=== PATIENT | female | born 1930 | race Caucasian/White ===

== ENCOUNTER 2016-11-13 22:36 | Emergency (ER) | payer MEDICARE ==
[~2016-11-13] VITALS: Ht 172.7 cm; Wt 103.0 kg
[~2016-11-13 22:36] MED LIST: AMLO5TAB22 PO; ASPI325T PO; CALC0.25 PO; CIPR1TAB50 PO; DUONI NEB; FERR324T4 PO; FURO1TAB93 PO; LOPR50TA12 PO; NOVORP2 SQ; SYNT25TA PO
[2016-11-13 22:44] VITALS: BP 221/92; PULSE 78; RESP 20; O2SAT 100
[2016-11-13 22:52] VITALS: BP 155/67; PULSE 70; RESP 18; O2SAT 98
[2016-11-13 23:04] VITALS: BP 206/84; PULSE 69; RESP 18; TEMP 97.6; O2SAT 98
[2016-11-13] MEDS ORDERED: AMLO5TAB2 PO (23:24)
[2016-11-13] MEDS ORDERED: ASPI325T PO (23:24)
[2016-11-13] MEDS ORDERED: CALC0.25 PO (23:24)
[2016-11-13 23:25] LABS: AUTOMATED NEUTROPHIL # 4.8 TH/MM3 (1.8-7.7); BASOPHIL # 0.1 TH/MM3 (0-0.2); BASOPHIL % 1.2 % (0.0-2.0); EOSINOPHIL % 12.2 % (0.0-4.0); HEMATOCRIT 29.4 % (35.0-46.0); HEMO FLAGS DIFF FINAL; LYMPH % 18.5 % (9.0-44.0); LYMPHOCYTE # 1.5 TH/MM3 (1.0-4.8); MEAN CORPUSCULAR HEMOGLOBIN 30.2 PG (27.0-34.0); MEAN CORPUSCULAR HGB CONC 33.5 % (32.0-36.0); MONO % 9.8 % (0.0-8.0); NEUT % 58.3 % (16.0-70.0); PLATELET COUNT 154 TH/MM3 (150-450); RED BLOOD COUNT 3.26 MIL/MM3 (4.00-5.30); WHITE BLOOD COUNT 8.2 TH/MM3 (4.0-11.0)
[2016-11-13] MEDS ORDERED: FERR325C PO (23:25)
[2016-11-13] MEDS ORDERED: FURO1TAB60 PO (23:25)
[2016-11-13] MEDS ORDERED: NOVORP2 SQ (23:25)
[2016-11-13] MEDS ORDERED: SYNT25TA PO (23:25)
--- NOTE | 2016-11-13 23:26 | PD ---
HPI Chief Complaint: Hypertension Time Seen by Provider: 22:57 Travel History International Travel<30 days: No Contact w/Intl Traveler<30days: No Traveled to known affect area: No History of Present Illness HPI This patient presents to the emergency room because she actually gave herself too much insulin. At 10:15 she checked her blood sugar and was 273. She uses a sliding scale with subcutaneous regular insulin. She made a mistake and accidentally gave herself 20 units of subcutaneous regular at 10:15. At this time she feels fine. Paramedics were called. Accu-Chek was 150 when they arrived. It is currently 84. She is asymptomatic. No alleviating factors. Duration 1 hour. She has history of difficult to control blood pressure, currently 183 systolic she has failing kidneys and is due to start dialysis soon. She has a AV fistula in her right arm. PFSH Past Medical History Anemia: Yes Arthritis: Yes Atrial Fibrillation: Yes Cancer: No Cardiovascular Problems: Yes (chf) Congestive Heart Failure: Yes COPD: Yes Diabetes: Yes Patient Takes Glucophage: No Diminished Hearing: Yes (SNOQUALMIE) Endocrine: Yes Genitourinary: No Hepatitis: No Hiatal Hernia: No Hypertension: Yes Immune Disorder: No Medical other: Yes (ANEMIA,ARTHRITIS,HYPERLIPIDEMIA,) Musculoskeletal: Yes (mild arthritis in the hands and fingers) Neurologic: No Psychiatric: No Reproductive: No Respiratory: No Immunizations Current: No Thyroid Disease: Yes Tetanus Vaccination: Unknown Influenza Vaccination: No : 12 Para: 11 Miscarriage: 1 Past Surgical History Abdominal Surgery: Yes (partial sigmoid removal 2005) AICD: No Arteriovenous Shunt: Yes (RIGHT ARM) Body Medical Devices: PACEMAKER Cardiac Surgery: Yes (pacemaker) Ear Surgery: No Endocrine Surgery: No Eye Surgery: Yes (BILAT eye cataract removal) Genitourinary Surgery: No Gynecologic Surgery: Yes (hysterectomy) Hysterectomy: Yes Joint Replacement: No Oral Surgery: Yes ( ) Pacemaker: Yes Thoracic Surgery: No Tonsillectomy: Yes Other Surgery: Yes ( ) Social History Alcohol Use: No Tobacco Use: No Substance Use: No Allergies-Medications (Allergen,Severity, Reaction): Coded Allergies: Grass (Verified Allergy, Severe, CONGESTION, 11/13/16) Animal Dander (Verified Allergy, Intermediate, NASAL, 11/13/16) NASAL CONGESTION Grapefruit (Unverified Allergy, Unknown, due to drug interaction, 11/13/16) Glucophage (Verified Adverse Reaction, Severe, Diarrhea, 11/13/16) Darvocet-N 100 (Verified Adverse Reaction, Mild, N/V, 11/13/16) Lortab (Verified Adverse Reaction, Mild, N/V, 11/13/16) *MDRO Multi-Drug Resistant Organism (Verified Adverse Reaction, Unknown, ) 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 Uncoded Allergies: ALL NARCOTICS (Adverse Reaction, Severe, Nausea/Vomiting, 08/24/06) Reported Meds & Prescriptions Reported Meds & Active Scripts Active Reported Synthroid (Levothyroxine Sodium) 25 Mcg Tab 25 Mcg PO DAILY Novolin R Inj (Insulin Human Regular) 1,000 Unit/10 Ml Vial 0 SQ DIRECTED Sliding Scale As Directed. Lasix (Furosemide) 40 Mg Tab 40 Mg PO DAILY PRN Iron (Ferrous Sulfate) 325 Mg Capsule.er 325 Mg PO BID Calcitriol 0.25 Mcg Cap 0.25 Mcg PO DAILY Aspirin 325 Mg Tab 325 Mg PO DAILY Amlodipine (Amlodipine Besylate) 5 Mg Tab 5 Mg PO DAILY Review of Systems General / Constitutional: No: Fever Eyes: No: Visual changes HENT: No: Headaches Cardiovascular: No: Chest Pain or Discomfort Respiratory: No: Shortness of Breath Gastrointestinal: No: Abdominal Pain Genitourinary: No: Dysuria Musculoskeletal: No: Pain Skin: No Rash Neurologic: No: Weakness Psychiatric: No: Depression Endocrine: No: Polydipsia Hematologic/Lymphatic: No: Easy Bruising Physical Exam Narrative GENERAL: Well-nourished, well-developed patient in no apparent distress. SKIN: Focused skin assessment reveals no rash and nodules. Skin is Warm and dry. HEAD: Atraumatic. Normocephalic. EYES: Pupils equal and round. No scleral icterus. No injection or drainage. ENT: No nasal bleeding or discharge. Mucous membranes pink and moist. NECK: Trachea midline. No JVD. CARDIOVASCULAR: Regular rate and rhythm. No murmur appreciated. RESPIRATORY: No accessory muscle use. Clear to auscultation. Breath sounds equal bilaterally. GASTROINTESTINAL: Abdomen soft, non-tender, nondistended. Hepatic and splenic margins not palpable. MUSCULOSKELETAL: No obvious deformities. No clubbing. No cyanosis. No edema. Right arm AV fistula NEUROLOGICAL: Awake and alert. No obvious cranial nerve deficits. Motor grossly within normal limits. Normal speech. PSYCHIATRIC: Appropriate mood and affect; insight and judgment normal. Data Data Last Documented VS Vital Signs Date Time Temp Pulse Resp B/P Pulse Ox O2 Delivery O2 Flow Rate FiO2 11/14/16 04:30 74 16 165/73 98 Room Air 11/13/16 23:04 97.6 Orders Iv Access Insert/Monitor (11/13/16 23:08) Complete Blood Count With Diff (11/13/16 23:08) Basic Metabolic Panel (Bmp) (11/13/16 23:08) Clonidine (Catapres) (11/13/16 23:30) Dextrose 50% In Lupe (Vial) Inj (D50w (Vi (11/14/16 00:15) Dext 5%-Nacl 0.45% 1000 Ml Inj (D5w-1/2 (11/14/16 01:30) Dextrose 50% In Lupe (Vial) Inj (D50w (Vi (11/14/16 01:30) Dextrose 50% In Lupe (Vial) Inj (D50w (Vi (11/14/16 02:30) Labs Laboratory Tests Test 11/13/16 23:10 White Blood Count 8.2 TH/MM3 Red Blood Count 3.26 MIL/MM3 Hemoglobin 9.8 GM/DL Hematocrit 29.4 % Mean Corpuscular Volume 90.0 FL Mean Corpuscular Hemoglobin 30.2 PG Mean Corpuscular Hemoglobin 33.5 % Concent Red Cell Distribution Width 14.0 % Platelet Count 154 TH/MM3 Mean Platelet Volume 8.3 FL Neutrophils (%) (Auto) 58.3 % Lymphocytes (%) (Auto) 18.5 % Monocytes (%) (Auto) 9.8 % Eosinophils (%) (Auto) 12.2 % Basophils (%) (Auto) 1.2 % Neutrophils # (Auto) 4.8 TH/MM3 Lymphocytes # (Auto) 1.5 TH/MM3 Monocytes # (Auto) 0.8 TH/MM3 Eosinophils # (Auto) 1.0 TH/MM3 Basophils # (Auto) 0.1 TH/MM3 CBC Comment DIFF FINAL Differential Comment Sodium Level 141 MEQ/L Potassium Level 5.0 MEQ/L Chloride Level 111 MEQ/L Carbon Dioxide Level 21.1 MEQ/L Anion Gap 9 MEQ/L Blood Urea Nitrogen 62 MG/DL Creatinine 3.27 MG/DL Estimat Glomerular Filtration 13 ML/MIN Rate Random Glucose 72 MG/DL Calcium Level 9.0 MG/DL MDM Medical Decision Making Medical Screen Exam Complete: Yes Emergency Medical Condition: Yes Medical Record Reviewed: Yes Differential Diagnosis Hypoglycemic episode, insulin overdose, medication side effect Narrative Course I have reviewed the patient's electronic medical record. Patient was here August 2015 with hypertensive urgency I did give her a low-dose clonidine IV placed CBC is normal Metabolic profile is normal I gave her juice and crackers We will reassess her sugar frequently and observe her for a while Blood sugar dropped down into the 60s so I gave her half amp of D50 and I continued to observe On recheck blood sugar again in the 60s I gave her another half amp of D50 and started D5 normal saline drip at 150 an hour Patient sugar remain low so I continued her on the drip and observed her I really didn't expect this to last as long as it did given her report of subcutaneous regular insulin and not long-acting I didn't feel she would really require hospitalization At 5:45 I turned off her D5 normal saline drip. 30 minutes later blood sugar is 102 and she is asymptomatic. She will check and record it frequently today and avoid diabetic medications and have small frequent snacks Diagnosis Primary Impression: Hypoglycemia due to insulin Additional Impression: Accidental overdose Qualified Code: T50.901A - Accidental overdose, initial encounter Additional Instructions: Avoid diabetic medicines today Check sugar every 2 hours Have small frequent meals and snacks The patient was advised to follow up with their physician and return if they worsen. Disposition: 01 DISCHARGE HOME Condition: Stable Phillip Mcgowan MD Nov 13, 2016 23:26
[2016-11-13] MEDS ORDERED: cloNIDine HCL 0.1 MG TAB PO ONE (23:30)
[2016-11-13 23:41] LABS: BICARBONATE 21.1 MEQ/L (21.0-32.0)
[2016-11-14] VITALS: BP 168/70; PULSE 72; RESP 18; O2SAT 99
[2016-11-14] MEDS ORDERED: DEXTROSE 50% IN WATER 50 ML VIAL(D50) IV PUSH ONE ×3 (00:15→02:30)
[2016-11-14 01:15] VITALS: BP 121/57; PULSE 68; RESP 16; O2SAT 97
[2016-11-14] MEDS ORDERED: DEXT 5%-NACL 0.45% 1000 ML INJ 1,000 ML IV SCH (01:30)
[2016-11-14 02:30] VITALS: BP 126/56; PULSE 72; RESP 16; O2SAT 96
[2016-11-14 04:30] VITALS: BP 165/73; PULSE 74; RESP 16; O2SAT 98
[2016-11-14 07:40] VITALS: BP 147/78
== END 2016-11-14 07:41 | disposition home or self-care (01) ==
LOC: NEPC 22:36
DX: E16.0 Drug-induced hypoglycemia without coma (principal); T38.3X1A Poisoning by insulin and oral hypoglycemic [antidiabetic] drugs, accidental (unintentional), initial encounter; E11.649 Type 2 diabetes mellitus with hypoglycemia without coma; I12.9 Hypertensive chronic kidney disease with stage 1 through stage 4 chronic kidney disease, or unspecified chronic kidney disease; N18.9 Chronic kidney disease, unspecified; I48.91 Unspecified atrial fibrillation; D64.9 Anemia, unspecified; I50.9 Heart failure, unspecified; J44.9 Chronic obstructive pulmonary disease, unspecified; E78.5 Hyperlipidemia, unspecified; E07.9 Disorder of thyroid, unspecified
CPT/HCPCS: 80048; 85025; 96365; 96375; 96376

== ENCOUNTER 2017-02-23 16:15 | Emergency (ER) | payer MEDICARE ==
[~2017-02-23 16:15] MED LIST changes: +AMLO5TAB2 PO; -AMLO5TAB22 PO; -CIPR1TAB50 PO; -DUONI NEB; -FERR324T4 PO; +FERR325C PO; +FURO1TAB60 PO; -FURO1TAB93 PO; -LOPR50TA12 PO
[2017-02-23 16:18] VITALS: BP 139/87; PULSE 81; RESP 14; TEMP 97.9; O2SAT 100
--- NOTE | 2017-02-23 16:40 | PD ---
Physical Exam Time Seen by Provider: 16:38 Narrative Pt sent to ED from [place] for evaluation of high potassium. Pt denies any symptoms, says she feels good!. Appears well, some mild shortness of breath that is chronic. Hx COPD, pacemaker placement, diabetes, CHF Data Data Last Documented VS Vital Signs Date Time Temp Pulse Resp B/P (MAP) Pulse Ox O2 Delivery O2 Flow Rate FiO2 02/23/17 23:40 02/23/17 21:11 83 18 98 Room Air 02/23/17 16:18 97.9 Orders Orders Basic Metabolic Panel (Bmp) (02/23/17 16:40) Electrocardiogram (02/23/17 17:06) Sodium Polysty Sulfate Liq (Kayexalate L (02/23/17 19:00) Urinalysis - C+S If Indicated (02/23/17 19:04) Urine Culture (02/23/17 20:40) Ceftriaxone Inj (Rocephin Inj) (02/23/17 22:45) Ceftriaxone Inj (Rocephin Inj) (02/23/17 23:00) Lidocaine Pf 1% Inj (Xylocaine-Mpf 1% In (02/23/17 23:00) Labs Laboratory Tests Test 02/23/17 16:57 02/23/17 20:40 Blood Urea Nitrogen 50 MG/DL Creatinine 3.09 MG/DL Random Glucose 93 MG/DL Calcium Level 9.2 MG/DL Sodium Level 139 MEQ/L Potassium Level 5.9 MEQ/L Chloride Level 110 MEQ/L Carbon Dioxide Level 21.3 MEQ/L Anion Gap 8 MEQ/L Estimat Glomerular Filtration Rate 14 ML/MIN Urine Color LIGHT-YELLOW Urine Turbidity CLEAR Urine pH 6.5 Urine Specific [place] 1.007 Urine Protein TRACE mg/dL Urine Glucose (UA) NEG mg/dL Urine Ketones NEG mg/dL Urine Occult Blood NEG Urine Nitrite NEG Urine Bilirubin NEG Urine Urobilinogen LESS THAN 2.0 MG/DL Urine Leukocyte Esterase MOD Urine RBC 2 /hpf Urine WBC 10 /hpf Urine Squamous Epithelial Cells 1 /hpf Urine Amorphous Sediment RARE Urine Bacteria MANY /hpf Microscopic Urinalysis Comment CULTURE INDICATED MDM Medical Record Reviewed: Yes Supervised Visit with [facility]: No Scripts Cephalexin (Keflex) 500 Mg Capsule 500 MG PO TID for Infection for 7 Days, CAP 0 Refills Prov: Criss Josue MD 02/23/17 Sodium Polystyrene Sulfonate Liq (Kayexalate Liq) 1 Pow Pow 15 GM PO BID for Excess Potassium, #1 BOTTLE 0 Refills Prov: Criss Josue MD 02/23/17 Condition: Stable Brigida Segovia Feb 23, 2017 16:40
[2017-02-23 17:41] LABS: BICARBONATE 21.3 MEQ/L (21.0-32.0); POTASSIUM 5.9 MEQ/L (3.5-5.1)
[2017-02-23] MEDS ORDERED: SODIUM POLYSTYRENE SULFONATE SUSP 15 GM/60 ML CUP PO ONE (19:00)
[2017-02-23] MEDS ORDERED: CIPR250T52 PO (19:13)
--- NOTE | 2017-02-23 19:18 | PD ---
HPI . Hyperkalemia Chief Complaint: Abnormal Results Time Seen by Provider: 18:53 Travel History International Travel<30 days: No Contact w/Intl Traveler<30days: No Traveled to known affect area: No History of Present Illness HPI Patient presents with a chief complaint of hyperkalemia. She has no complaints. Specifically, she denies any muscular weakness. This patient reports a history of hyperkalemia. She has chronic renal failure. She reports a baseline GFR of 14. She states that she had been treated with Kayexalate for her hyperkalemia until about a month ago. She states she was diagnosed with a urinary tract infection and that the Kayexalate had the stopped because it was contraindicated with the antibiotic. She reports that she is still on the antibiotic. She saw her primary care provider this past and had blood work done. She was called today and told to come to the emergency department because her potassium was high. PFSH Past Medical History Anemia: Yes Arthritis: Yes Atrial Fibrillation: Yes Blood Disorders: No Cancer: No Cardiovascular Problems: Yes (chf) Congestive Heart Failure: Yes COPD: Yes Diabetes: Yes Patient Takes Glucophage: No Diminished Hearing: Yes (MODOC) Endocrine: Yes Genitourinary: No Hepatitis: No Hiatal Hernia: No Hypertension: Yes Immune Disorder: No Medical other: Yes (ANEMIA,ARTHRITIS,HYPERLIPIDEMIA,) Musculoskeletal: Yes (mild arthritis in the hands and fingers) Neurologic: No Psychiatric: No Reproductive: No Respiratory: No Immunizations Current: Yes Thyroid Disease: Yes Tetanus Vaccination: < 5 Years Influenza Vaccination: No : 12 Para: 11 Miscarriage: 1 Past Surgical History Abdominal Surgery: Yes (partial sigmoid removal 2005) AICD: No Arteriovenous Shunt: Yes (RIGHT ARM) Body Medical Devices: PACEMAKER Cardiac Surgery: Yes (pacemaker) Ear Surgery: No Endocrine Surgery: No Eye Surgery: Yes (BILAT eye cataract removal) Genitourinary Surgery: No Gynecologic Surgery: Yes (hysterectomy) Hysterectomy: Yes Joint Replacement: No Neurologic Surgery: No Oral Surgery: Yes ( ) Pacemaker: Yes Thoracic Surgery: No Tonsillectomy: Yes Other Surgery: Yes ( ) Social History Alcohol Use: No Tobacco Use: No Substance Use: No Allergies-Medications (Allergen,Severity, Reaction): Coded Allergies: grass pollen (Unverified Allergy, Severe, CONGESTION, 02/23/17) animal dander (Unverified Allergy, Intermediate, NASAL, 02/23/17) NASAL CONGESTION grapefruit (Unverified Allergy, Unknown, due to drug interaction, 02/23/17) metformin (Unverified Adverse Reaction, Severe, Diarrhea, 02/23/17) acetaminophen (Unverified Adverse Reaction, Mild, N/V, 02/23/17) hydrocodone (Unverified Adverse Reaction, Mild, N/V, 02/23/17) propoxyphene (Unverified Adverse Reaction, Mild, N/V, 02/23/17) *MDRO Multi-Drug Resistant Organism (Verified Adverse Reaction, Unknown, 02/23/17) 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 Uncoded Allergies: ALL NARCOTICS (Adverse Reaction, Severe, Nausea/Vomiting, 08/24/06) Reported Meds & Prescriptions Reported Meds & Active Scripts Active Kayexalate Liq (Sodium Polystyrene Sulfonate) 1 Pow Pow 15 Gm PO BID Reported Cipro (Ciprofloxacin HCl) 250 Mg Tab 250 Mg PO DAILY Review of Systems Except as stated in HPI: all other systems reviewed are Neg Physical Exam Narrative GENERAL: Patient is awake and alert and in no distress. SKIN: Warm and dry with no rash or lesions. HEAD: Normocephalic/atraumatic. EYES: Pupils are equal. Extraocular movements are intact. ENT: Mucous membranes are pink and moist. NECK: Neck is supple with full range of motion. CARDIOVASCULAR: Regular rate and rhythm. RESPIRATORY: Nonlabored. MUSCULOSKELETAL: Nontender. Atraumatic. NEUROLOGICAL: Nonfocal. PSYCHIATRIC: Appropriate mood and affect. Data Data Last Documented VS Vital Signs Date Time Temp Pulse Resp B/P (MAP) Pulse Ox O2 Delivery O2 Flow Rate FiO2 02/23/17 21:11 83 18 179/86 (117) 98 Room Air 02/23/17 16:18 97.9 Orders Orders Basic Metabolic Panel (Bmp) (02/23/17 16:40) Electrocardiogram (02/23/17 17:06) Sodium Polysty Sulfate Liq (Kayexalate L (02/23/17 19:00) Urinalysis - C+S If Indicated (02/23/17 19:04) Urine Culture (02/23/17 20:40) Ceftriaxone Inj (Rocephin Inj) (02/23/17 22:45) Ceftriaxone Inj (Rocephin Inj) (02/23/17 23:00) Lidocaine Pf 1% Inj (Xylocaine-Mpf 1% In (02/23/17 23:00) Labs Laboratory Tests Test 02/23/17 16:57 02/23/17 20:40 Blood Urea Nitrogen 50 MG/DL Creatinine 3.09 MG/DL Random Glucose 93 MG/DL Calcium Level 9.2 MG/DL Sodium Level 139 MEQ/L Potassium Level 5.9 MEQ/L Chloride Level 110 MEQ/L Carbon Dioxide Level 21.3 MEQ/L Anion Gap 8 MEQ/L Estimat Glomerular Filtration Rate 14 ML/MIN Urine Color LIGHT-YELLOW Urine Turbidity CLEAR Urine pH 6.5 Urine Specific [place] 1.007 Urine Protein TRACE mg/dL Urine Glucose (UA) NEG mg/dL Urine Ketones NEG mg/dL Urine Occult Blood NEG Urine Nitrite NEG Urine Bilirubin NEG Urine Urobilinogen LESS THAN 2.0 MG/DL Urine Leukocyte Esterase MOD Urine RBC 2 /hpf Urine WBC 10 /hpf Urine Squamous Epithelial Cells 1 /hpf Urine Amorphous Sediment RARE Urine Bacteria MANY /hpf Microscopic Urinalysis Comment CULTURE INDICATED MDM Medical Decision Making Medical Screen Exam Complete: Yes Emergency Medical Condition: Yes Medical Record Reviewed: Yes (her most recent potassium was 5.0 on 11/13. Her GFR at that time was 13.) Interpretation(s) EKG shows a paced rhythm. No peaked T waves. Differential Diagnosis Differential diagnosis includes but is not limited to hemolysis, lab error, hyperkalemia. Narrative Course Patient presents for treatment of hyperkalemia. UpToDate was queried. Her hyperkalemia needs to be treated but her potassium does not need to be acutely lowered. She will be given Kayexalate. The fact that she has a cardiac pacemaker is reassuring. The patient does state that she is still on an antibiotic for UTI. She's been on the antibiotic for a month. I will check a urine. UA>>mod LE and many bact. She has been treated here with Rocephin, 1 g IM. She will be discharged on Keflex. Diagnosis Primary Impression: Hyperkalemia Additional Impressions: CKD (chronic kidney disease) Qualified Codes: N18.4 - Chronic kidney disease, stage 4 (severe) Urinary tract infection Qualified Codes: N30.00 - Acute cystitis without hematuria Patient Instructions: General Instructions, Hyperkalemia (DC) Additional Instructions: See your doctor later this week to have your potassium rechecked. Med/Other Pt SpecificInfo: Prescription(s) given, Med Stopped Scripts Cephalexin (Keflex) 500 Mg Capsule 500 MG PO TID for Infection for 7 Days, CAP 0 Refills Prov: Criss Josue MD 02/23/17 Sodium Polystyrene Sulfonate Liq (Kayexalate Liq) 1 Pow Pow 15 GM PO BID for Excess Potassium, #1 BOTTLE 0 Refills Prov: Criss Josue MD 02/23/17 Disposition: 01 DISCHARGE HOME Condition: Stable Criss Josue MD Feb 23, 2017 19:18
[2017-02-23] MEDS ORDERED: KAYEPOW PO ×2 (19:41→19:49)
[2017-02-23 21:11] VITALS: BP 179/86; PULSE 83; RESP 18; O2SAT 98
[2017-02-23 22:28] LABS: BACTERIA, URINE MANY /hpf; BLOOD, URINE NEG (NEG); COMMENT (UR) CULTURE INDICATED; CULTURE IF INDICATED CULTURE INDICATED; GLUCOSE,URINE NEG (NEG); KETONE, URINE NEG (NEG); NITRITE,URINE NEG (NEG); PH, URINE 6.5 (5.0-8.5); SQUAMOUS EPITHELIAL CELL URINE 1 /hpf (0-5); URINE COLOR LIGHT-YELLOW (YELLW/STRAW)
[2017-02-23] MEDS ORDERED: cefTRIAXone INJ 1,000 MG in SODIUM CHLORIDE 0.9% INJ 100 ML IV ONE (22:45)
[2017-02-23] MEDS ORDERED: LIDOCAINE HCL 1% PF 30 ML VIAL XX ONE (23:00)
[2017-02-23] MEDS ORDERED: CEPH-460 PO (23:02)
--- NOTE | 2017-02-24 08:20 | EKG ---
Date Performed: 02/23/2017 Time Performed: 17:06:55 PTAGE: 87 years EKG: ELECTRONIC VENTRICULAR PACEMAKER ABNORMAL RHYTHM ECG PREVIOUS TRACING : 08/27/2015 08.47 Compared to prior EKG, patient is now paced. DOCTOR: Harper Jules Interpretating Date/Time 02/24/2017 08:18:21
== END 2017-02-23 23:47 | disposition home or self-care (01) ==
LOC: NEPE 16:15
DX: E87.5 Hyperkalemia (principal); N39.0 Urinary tract infection, site not specified; B96.20 Unspecified Escherichia coli [E. coli] as the cause of diseases classified elsewhere; R94.31 Abnormal electrocardiogram [ECG] [EKG]; E11.22 Type 2 diabetes mellitus with diabetic chronic kidney disease; I12.9 Hypertensive chronic kidney disease with stage 1 through stage 4 chronic kidney disease, or unspecified chronic kidney disease; N18.4 Chronic kidney disease, stage 4 (severe); D64.9 Anemia, unspecified; E78.5 Hyperlipidemia, unspecified
CPT/HCPCS: 80048; 81001; 87077; 87086; 87186; 93005; 96372; 99284; J0696

== ENCOUNTER 2017-05-10 18:53 | Inpatient (IN) | payer MEDICARE ==
[~2017-05-10] VITALS: Ht 167.6 cm; Wt 106.0 kg
[2017-05-10 17:57] VITALS: O2SAT 100
[~2017-05-10 18:53] MED LIST changes: -AMLO5TAB2 PO; -ASPI325T PO; -CALC0.25 PO; +CEPH-460 PO; -FERR325C PO; -FURO1TAB60 PO; +KAYEPOW PO; -NOVORP2 SQ; -SYNT25TA PO
[2017-05-10 19:01] VITALS: BP 229/112; PULSE 110; RESP 24; TEMP 98.2; O2SAT 100
[2017-05-10 19:05] VITALS: O2SAT 100
--- NOTE | 2017-05-10 19:11 | PD ---
HPI Chief Complaint: Respiratory Distress Time Seen by Provider: 19:02 Travel History International Travel<30 days: No Contact w/Intl Traveler<30days: No Traveled to known affect area: No History of Present Illness HPI 87 year-old woman, presents to the emergency department and respiratory distress , speaks in 1-2 word sentences, and able to provide much history. EMS reports that she's been more short of breath for the past week or so. They gave nebulizer treatments as well as IV Solu-Medrol. Patient remains symptomatic. Review of records shows patient with chronic kidney disease, COPD, CHF. Medications include Lasix. History Past Medical History Narrative Medical Obtained from old records: A. fib Pacemaker for CHF COPD CHF Hypertension hypokalemia Hypothyroidism insulin-dependent diabetes Chronic kidney disease stage IV History of right DVT : 12 Para: 11 Social History Alcohol Use: No Tobacco Use: No Allergies-Medications (Allergen,Severity, Reaction): Coded Allergies: grass pollen (Unverified Allergy, Severe, CONGESTION, 02/23/17) animal dander (Unverified Allergy, Intermediate, NASAL, 02/23/17) NASAL CONGESTION grapefruit (Unverified Allergy, Unknown, due to drug interaction, 02/23/17) metformin (Unverified Adverse Reaction, Severe, Diarrhea, 02/23/17) acetaminophen (Unverified Adverse Reaction, Mild, N/V, 02/23/17) hydrocodone (Unverified Adverse Reaction, Mild, N/V, 02/23/17) propoxyphene (Unverified Adverse Reaction, Mild, N/V, 02/23/17) *MDRO Multi-Drug Resistant Organism (Verified Adverse Reaction, Unknown, 02/23/17) 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 Uncoded Allergies: ALL NARCOTICS (Adverse Reaction, Severe, Nausea/Vomiting, 08/24/06) Reported Meds & Prescriptions Reported Meds & Active Scripts Active Keflex (Cephalexin) 500 Mg Capsule 500 Mg PO TID 7 Days Kayexalate Liq (Sodium Polystyrene Sulfonate) 1 Pow Pow 15 Gm PO BID Review of Systems ROS Limitations: Clinical Condition Physical Exam Narrative GENERAL: 87 year-old woman, marked respiratory distress. SKIN: Focused skin assessment warm/dry. HEAD: Atraumatic. Normocephalic. EYES: Pupils equal and round. No scleral icterus. No injection or drainage. ENT: No nasal bleeding or discharge. Mucous membranes pink and moist. NECK: Trachea midline. No JVD. CARDIOVASCULAR: Regular rate and rhythm. No murmur appreciated. RESPIRATORY: Marked respiratory distress. Coarse breath sounds in posterior lung rosa. No definite arouse. GASTROINTESTINAL: Abdomen soft, non-tender, nondistended. Hepatic and splenic margins not palpable. MUSCULOSKELETAL: No obvious deformities. Pitting edema both lower extremities. NEUROLOGICAL: Awake and alert. No obvious cranial nerve deficits. Motor grossly within normal limits. Normal speech. PSYCHIATRIC: Anxious appearing. Data Data Last Documented VS Vital Signs Date Time Temp Pulse Resp B/P (MAP) Pulse Ox O2 Delivery O2 Flow Rate FiO2 05/10/17 19:01 98.2 110 24 229/112 (151) 100 Orders Orders Complete Blood Count With Diff (05/10/17 19:02) Comprehensive Metabolic Panel (05/10/17 19:02) B-Type Natriuretic Peptide (05/10/17 19:02) Act Partial Throm Time (Ptt) (05/10/17 19:02) Prothrombin Time / Inr (Pt) (05/10/17 19:02) Magnesium (Mg) (05/10/17 19:02) Troponin I (05/10/17 19:02) Iv Access Insert/Monitor (05/10/17 19:02) Electrocardiogram (05/10/17 19:02) Ecg Monitoring (05/10/17 19:02) Oximetry (05/10/17 19:02) Oxygen Administration (05/10/17 19:02) Chest, Single Ap (05/10/17 19:02) Sodium Chloride 0.9% Flush (Ns Flush) (05/10/17 19:15) Furosemide Inj (Lasix Inj) (05/10/17 19:15) Duoneb Q15min X 2 Doses (05/10/17 19:15) Resp Bipap / Cpap Non Invas Vt (05/10/17 19:02) Nitroglycerin-D5w 50 Mg/250 Ml (Nitrogly (05/10/17 19:15) MDM Medical Decision Making Medical Screen Exam Complete: Yes Emergency Medical Condition: Yes Differential Diagnosis COPD exacerbation, CHF exacerbation, hypertensive crisis, pleural effusions, pneumothorax, other Narrative Course Medical decision making 87 year-old woman presents emergency department with marked respiratory distress , evidence of volume overload, history of COPD. On arrival she was placed on BiPAP, blood pressure is elevated started a nitroglycerin drip, should be given a dose of IV Lasix, reassess. Patient came in right about shift change, will be turned over to the oncoming provider. Abisai Mosquera MD May 10, 2017 19:11
[2017-05-10] MEDS ORDERED: FUROSEMIDE 100 MG/10 ML VIAL IVP ONE (19:15)
[2017-05-10] MEDS ORDERED: NITROGLYCERIN-D5W 50 MG/250 ML 250 ML IV PRN (19:15)
[2017-05-10] MEDS ORDERED: SODIUM CHLORIDE 0.9% FLUSH 10 ML FLUSH IVF PRN (19:15)
[2017-05-10] MEDS: RESP: ALBUTEROL 2.5 MG/IPRATROPIUM 0.5 MG NEB (SCH) INH ×2 (19:44→19:45)
[2017-05-10 19:45] VITALS: O2SAT 100
[2017-05-10 19:50] VITALS: O2SAT 100
--- NOTE | 2017-05-10 20:09 | PD ---
Physical Exam Narrative General: The patient is a well-developed well-nourished female in no acute distress, reporting improvement after being placed on BiPAP. Head and Neck exam: Head is normocephalic atraumatic. Eyes: EOMI, pupils are equal round and reactive to light. Neck: No palpable lymphadenopathy. No nuchal rigidity. No thyromegaly. Cardiovascular: Regular sounding tachycardia with a rate in the low 100 without murmurs, gallops , or rubs. No pulse deficit to the extremities on simultaneous auscultation and palpation of the radial artery. Lungs: Soft expiratory wheezes audible in bilateral lung rosa, scattered rhonchi audible that clear with coughing, decreased breath sounds in bilateral lung bases. No accessory muscle use noted. No paroxysmal abdominal breathing. No tripoding. Abdomen: Soft, without tenderness to palpation in all 4 quadrants of the abdomen. No guarding, rebound, or rigidity. Normal bowel sounds are audible. No tenderness on palpation of McBurney's point. Extremities: No clubbing or cyanosis. The patient has trace pedal edema bilateral lower extremities. She reports that this is no worse than usual. 2+ pulses in all 4 extremities. No calf tenderness on palpation. Neurologic Exam: Grossly nonfocal. Skin Exam: No rash noted. Intact skin that is warm and dry. Data Data Last Documented VS Vital Signs Date Time Temp Pulse Resp B/P (MAP) Pulse Ox O2 Delivery O2 Flow Rate FiO2 05/10/17 21:44 109 173/81 05/10/17 19:50 100 40 05/10/17 19:45 BiPAP 05/10/17 19:06 40.00 05/10/17 19:01 98.2 24 Orders Orders Complete Blood Count With Diff (05/10/17 19:02) Comprehensive Metabolic Panel (05/10/17 19:02) B-Type Natriuretic Peptide (05/10/17 19:02) Act Partial Throm Time (Ptt) (05/10/17 19:02) Prothrombin Time / Inr (Pt) (05/10/17 19:02) Magnesium (Mg) (05/10/17 19:02) Troponin I (05/10/17 19:02) Iv Access Insert/Monitor (05/10/17 19:02) Electrocardiogram (05/10/17 19:02) Ecg Monitoring (05/10/17 19:02) Oximetry (05/10/17 19:02) Oxygen Administration (05/10/17 19:02) Chest, Single Ap (05/10/17 19:02) Sodium Chloride 0.9% Flush (Ns Flush) (05/10/17 19:15) Furosemide Inj (Lasix Inj) (05/10/17 19:15) Albuterol-Ipratropium Neb (Duoneb Neb) (05/10/17 19:15) Resp Bipap / Cpap Non Invas Vt (05/10/17 19:02) Nitroglycerin-D5w 50 Mg/250 Ml (Nitrogly (05/10/17 19:15) Urinary Catheter Insert/Apply (05/10/17 19:18) Arterial Blood Gas (Abg) (05/10/17 20:06) Admit Order (Ed Use Only) (05/10/17 21:55) Labs Laboratory Tests Test 05/10/17 19:15 05/10/17 20:06 White Blood Count 7.6 TH/MM3 Red Blood Count 3.25 MIL/MM3 Hemoglobin 9.8 GM/DL Hematocrit 29.8 % Mean Corpuscular Volume 91.9 FL Mean Corpuscular Hemoglobin 30.1 PG Mean Corpuscular Hemoglobin Concent 32.7 % Red Cell Distribution Width 13.9 % Platelet Count 128 TH/MM3 Mean Platelet Volume 8.7 FL Neutrophils (%) (Auto) 56.1 % Lymphocytes (%) (Auto) 26.4 % Monocytes (%) (Auto) 10.4 % Eosinophils (%) (Auto) 6.5 % Basophils (%) (Auto) 0.6 % Neutrophils # (Auto) 4.3 TH/MM3 Lymphocytes # (Auto) 2.0 TH/MM3 Monocytes # (Auto) 0.8 TH/MM3 Eosinophils # (Auto) 0.5 TH/MM3 Basophils # (Auto) 0.0 TH/MM3 CBC Comment DIFF FINAL Differential Comment Prothrombin Time 11.6 SEC Prothromb Time International Ratio 1.1 RATIO Activated Partial Thromboplast Time 23.8 SEC Blood Urea Nitrogen 38 MG/DL Creatinine 2.59 MG/DL Random Glucose 148 MG/DL Total Protein 7.2 GM/DL Albumin 3.0 GM/DL Calcium Level 8.0 MG/DL Magnesium Level 1.6 MG/DL Alkaline Phosphatase 173 U/L Aspartate Amino Transf (AST/SGOT) 17 U/L Alanine Aminotransferase (ALT/SGPT) 14 U/L Total Bilirubin 0.7 MG/DL Sodium Level 139 MEQ/L Potassium Level 3.8 MEQ/L Chloride Level 107 MEQ/L Carbon Dioxide Level 21.1 MEQ/L Anion Gap 11 MEQ/L Estimat Glomerular Filtration Rate 17 ML/MIN Troponin I 0.04 NG/ML B-Type Natriuretic Peptide 380 PG/ML Blood Gas Puncture Site LT RADIAL Blood Gas Patient Temperature 98.6 Blood Gas HCO3 21 mmol/L Blood Gas Base Excess -3.8 mmol/L Blood Gas Oxygen Saturation 95 % Arterial Blood pH 7.32 Arterial Blood Partial Pressure CO2 43 mmHg Arterial Blood Partial Pressure O2 89 mmHG Arterial Blood Oxygen Content 14.1 Vol % Arterial Blood Carboxyhemoglobin 1.3 % Arterial Blood Methemoglobin 0.6 % Blood Gas Hemoglobin 10.5 G/DL Oxygen Delivery Device BiPAP Blood Gas Ventilator Setting IPAP15/EPAP5 Blood Gas Inspired Oxygen 40 % MDM Medical Record Reviewed: Yes Supervised Visit with MEHDI: No Differential Diagnosis CHF exacerbation, versus pneumonia, versus pneumothorax, versus COPD exacerbation Narrative Course During the course of the patients emergency department visit, the patient was placed on a vehicle monitor technician with oximetry and frequent blood pressure monitoring. The patient had IV access obtained and blood work sent for analysis. The patient's case was checked out to me by Dr. Mosquera at the conclusion of his shift. Please see his initial history and physical. The patient is reportedly an 87-year-old female who presents to [facility] emergency Department with a known history of COPD and congestive heart failure with shortness of breath. The patient was given Solu-Medrol and nebulizer treatments prior to arrival. On arrival the patient was placed on BiPAP. The patient was additionally started on a nitroglycerin drip for hypertension with a systolic blood pressure in the 220s, as well as Lasix IV. The patient upon my evaluation reports that she's been short of breath increasingly over the last 3 days since she developed a cough, cold symptoms. She denies being on any antibiotic currently. She reports that her cough is nonproductive. She reports that she's been wheezing more than usual. She denies having any increased lower extremity edema. She denies having any chest pain or pressure. She denies having any known fevers. She denies having any abdominal pain, nausea, vomiting, or diarrhea. Her primary care physician is . The patient had an ECG done on arrival that shows a sinus tachycardia rate of 109, no acute ST segment elevation, nonspecific ST deviation and T-wave abnormalities noted, QRS duration is 108 ms, QTC 362 ms. No peaked T waves. ST segment abnormalities are most prominent in lead 2, 3, aVF, V6. The patients laboratory studies were reviewed and remarkable for an ABG done on arrival on BiPAP at 15 over 5, 40% shows a pH of 7.321, PCO2 42.5, PO2 89.3, bicarbonate 21.3. A CBC that shows a white count of 7.6, hemoglobin 9.8, platelets 128 with 10.4 monocytes, CMP is remarkable for a BUN of 38, creatinine 2.59, glucose 148, alkaline phosphatase 173, troponin I 0.04, BNP 380 , PT 11.6, PTT 23.8 Radiology studies were reviewed and remarkable for a chest x-ray that shows cardiomegaly, no other acute abnormality. The patients results were discussed with the patient, including the plan of care. I explained that further testing and/ or monitoring is indicated based on the patients history, examination, and/ or laboratory findings. Therefore, I recommended admission for additional evaluation. The patient expressed understanding and was agreeable with this plan. The patient was admitted to the hospital in guarded condition and sent to a bed under the care of the [facility]. Physician Communication Physician Communication The patient's case including history, pertinent physical examination findings, and laboratory studies were discussed with Dr. Linn. It was agreed that the patient would be admitted to the [facility] service. Diagnosis Primary Impression: COPD exacerbation Additional Impression: Shortness of breath Admitting Information Admitting Physician Requests: Admit Lyn Rousseau MD May 10, 2017 20:09
[2017-05-10 20:30] LABS: AUTOMATED NEUTROPHIL # 4.3 TH/MM3 (1.8-7.7); BASOPHIL % 0.6 % (0.0-2.0); EOSINOPHIL # 0.5 TH/MM3 (0-0.4); EOSINOPHIL % 6.5 % (0.0-4.0); HEMATOCRIT 29.8 % (35.0-46.0); HEMOGLOBIN 9.8 GM/DL (11.6-15.3); LYMPH % 26.4 % (9.0-44.0); MEAN CELL VOLUME 91.9 FL (80.0-100.0); MEAN CORPUSCULAR HEMOGLOBIN 30.1 PG (27.0-34.0); MEAN CORPUSCULAR HGB CONC 32.7 % (32.0-36.0); MEAN PLATELET VOLUME 8.7 FL (7.0-11.0); MONO % 10.4 % (0.0-8.0); MONOCYTE # 0.8 TH/MM3 (0-0.9); NEUT % 56.1 % (16.0-70.0); PLATELET COUNT 128 TH/MM3 (150-450); RED BLOOD COUNT 3.25 MIL/MM3 (4.00-5.30); RED CELL DISTRIBUTION WIDTH 13.9 % (11.6-17.2); WHITE BLOOD COUNT 7.6 TH/MM3 (4.0-11.0)
--- NOTE | 2017-05-10 20:31 | RADRPT ---
EXAM DATE/TIME: 05/10/2017 19:37 [place] COMPARISON: CHEST SINGLE AP, July 21, 2015, 10:21. INDICATIONS : Shortness of breath. MEDICAL HISTORY : Diabetes mellitus type II. Congestive heart failure. Chronic obstructive pulmonary disease. A-Fib SURGICAL HISTORY : Pacemaker. ENCOUNTER: Initial ACUITY: 1 day PAIN SCORE: 0/10 LOCATION: Bilateral chest FINDINGS: The heart size is mildly enlarged. Aortic calcifications are seen. There is a pacemaker in place from the left subclavian approach. The lungs are free of focal consolidation. There is a suspected calcif ied granuloma at the left lung base. A significant effusion is not seen. The bones are osteopenic. CONCLUSION: Cardiomegaly. Navi Mckeon MD on May 10, 2017 at 20:28 Board Certified Radiologist. This report was verified electronically.
[2017-05-10 20:35] LABS: INTERNATIONAL NORMALIZED RATIO 1.1 RATIO; PROTHROMBIN TIME - PATIENT 11.6 SEC (9.8-11.6)
[2017-05-10 20:39] LABS: AST (GOT) 17 U/L (15-37); BICARBONATE 21.1 MEQ/L (21.0-32.0); BLOOD UREA NITROGEN 38 MG/DL (7-18); CHLORIDE 107 MEQ/L (98-107); CREATININE 2.59 MG/DL (0.50-1.00); GLOMERULAR FILTRATION RATE 17 ML/MIN (>89); GLUCOSE,RANDOM 148 MG/DL (74-106); MAGNESIUM 1.6 MG/DL (1.5-2.5); SODIUM (NA) 139 MEQ/L (136-145)
[2017-05-10 20:44] LABS: ALKALINE PHOSPHATASE 173 U/L (45-117); ALT (GPT) 14 U/L (10-53); TOTAL BILIRUBIN ADULT 0.7 MG/DL (0.2-1.0); TOTAL PROTEIN 7.2 GM/DL (6.4-8.2); TROPONIN I 0.04 NG/ML (0.02-0.05)
[2017-05-10] MEDS ORDERED: NOVOLOGP2 SQ (21:43)
[2017-05-10] MEDS ORDERED: SODI650T PO (21:43)
[2017-05-10] MEDS ORDERED: LEVO100T5 PO (21:43)
[2017-05-10] MEDS ORDERED: HYDR-3133 PO (21:43)
[2017-05-10] MEDS ORDERED: ASPI-183 PO (21:43)
[2017-05-10] MEDS ORDERED: CIPR250T2 PO (21:43)
[2017-05-10] MEDS ORDERED: FURO1TAB61 PO (21:43)
[2017-05-10] MEDS ORDERED: LOSA100T PO (21:43)
[2017-05-10 22:15] VITALS: O2SAT 96
[2017-05-10] MEDS ORDERED: ONDANSETRON HCL 4 MG/2 ML VIAL IV PUSH PRN (22:15)
[2017-05-10] MEDS ORDERED: cloNIDine HCL 0.1 MG TAB PO PRN (22:15)
[2017-05-10] MEDS ORDERED: GLUCAGON 1 MG/ML VIAL OTHER PRN (23:00)
[2017-05-10] MEDS ORDERED: DEXTROSE 50% IN WATER 50 ML VIAL(D50) IV PUSH PRN (23:00)
[2017-05-10] MEDS: RESP: ALBUTEROL 2.5 MG/IPRATROPIUM 0.5 MG NEB (SCH) NEB (23:45)
[2017-05-11] VITALS (15 sets, daily range): BP systolic 130–171; BP diastolic 63–82; PULSE 80–107; RESP 18–24; TEMP 97.3–98.4; O2SAT 98–100
[2017-05-11] MEDS: methylPREDNISolone SOD SUCC 125 MG/2 ML VIAL IV PUSH SCH ×4 (01:30→17:03)
[2017-05-11] MEDS ORDERED: CHLORHEXIDINE GLUCONATE 2 % 1 PACK (2 CLOTHS)(extra cloths) TOPICAL PRN (02:45)
[2017-05-11] MEDS: RESP: ALBUTEROL 2.5 MG/IPRATROPIUM 0.5 MG NEB (SCH) NEB ×5 (03:30→19:39)
[2017-05-11] MEDS: CHLORHEXIDINE GLUCONATE 2 % 1 PACK (2 CLOTHS)(taper/protocol) TOPICAL SCH (04:00)
[2017-05-11 05:55] LABS: BICARBONATE 20.9 MEQ/L (21.0-32.0); CALCIUM 8.7 MG/DL (8.5-10.1); CREATININE 2.83 MG/DL (0.50-1.00)
[2017-05-11] MEDS: LEVOTHYROXINE SODIUM 100 MCG TAB PO SCH (06:19)
[2017-05-11] MEDS: FUROSEMIDE 80 MG TAB PO SCH (08:11)
[2017-05-11] MEDS: INSULIN ASPART SUPPLEMENTAL SCALE SQ SCH ×4 (08:11→20:18)
[2017-05-11] MEDS: ASPIRIN 325 MG TAB PO SCH (08:11)
[2017-05-11] MEDS: SODIUM BICARBONATE 650 MG TAB PO SCH ×3 (08:11→17:03)
[2017-05-11] MEDS: LOSARTAN 50 MG TAB PO SCH (08:11)
--- NOTE | 2017-05-11 08:36 | HHI.HP ---
HPI Service [facility] Hospitalists Primary Care Physician Nissa Ko MD Admission Diagnosis COPD exacerbation, history of CHF, hypertensive urgency Chief Complaint: SOB Travel History International Travel<30 Days: No Contact w/Intl Traveler <30 Da: No Traveled to Known Affected Are: No History of Present Illness Ms. Crenshaw is a pleasant 87 y/o female with atrial fibrillation s/p PPM in 02/2013 , CHF, COPD/restrictive lung disease who follows with Dr. Ricks, CKD stage [address] Carrillo, HTN, Hyperlipidemia, hypothyroidism, and diabetes. Pt presented to the ED at [facility] on 05/10/17 with complaints of worsening SOB. She states that she developed some cold symptoms with cough, congestion/runny nose and sore throat around 4 days ago. Her son that lives with her had developed cold symptoms prior to this. She states that she was just using OCT Vics Vapor rub for her sold symptoms. Yesterday she tried walking to the car to go to scientology but she was very SOB and unable to get to the car. This seemed to worsen throughout the day to the point where she had difficulty speaking due to her SOB. EMS was called. Per the ED documentation, EMS gave her nebulizer treatments as well as IV Solu-Medrol. On arrival she was placed on BiPAP, blood pressure was significantly elevated and she was started a nitroglycerin drip in the ED. Pt was given Lasix 80mg IV x one dose and nebulizer treatment in the ED. CXR in the ED noted cardiomegaly. Pt was was continued on IV Solu-Medrol 60mg Q6H and Duonebs Q4H. Pt was resumed on Lasix 80mg po daily. She states that at home she only uses Lasix as needed, not daily and she takes her Duoneb treatments once daily. At the time of examination this morning pt is on 3L of supplemental O2 via NC and overall feeling better. Pt is being weaned off the Nitro gtt. In the ED the patient had a run of V. tach noted. Pt denies any chest pain, abdominal pain, nausea, vomiting, headache, change in vision. She takes a daily ASA 325mg HS. Review of Systems Constitutional: DENIES: Fever, Chills Eyes: DENIES: Vision loss Ears, nose, mouth, throat: DENIES: Hearing loss Respiratory: COMPLAINS OF: Cough, Wheezing, Shortness of breath Cardiovascular: COMPLAINS OF: Dyspnea on Exertion, Lower Extremity Edema ( chronic RLE edema), DENIES: Chest pain, Palpitations Gastrointestinal: DENIES: Abdominal pain, Constipation, Diarrhea, Nausea, Vomiting Genitourinary: DENIES: Hematuria, Dysuria Musculoskeletal: DENIES: Back pain, Neck pain Integumentary: DENIES: Rash Neurologic: DENIES: Headache Psychiatric: DENIES: Confusion Past Family Social History Past Medical History 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 Hgb A1C 5.0 in 2016 CKD stage IV. 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 The patient follows with Dr. Carrillo. - Pt had RUE fistula placed in 04/2015 but became thrombosed, never used Atherosclerosis of aorta as noted on 03/19/14 chest X-ray Hx of atrial fibrillation/flutter s/p PPM in 02/2013. COPD/Emphysema [facility] Pt follows with Dr. Ricks. Restrictive lung disease HTN Hyperlipidemia CHF Arthritis Hx of anemia Hypothyroidism Hx of RLE DVT in 2014 Hx of colon cancer status post resection and anastomosis of the proximal descending colon. Hx of streptococcal sepsis in 10/2012 RLE cellulitis 2D echo (02/20/15): - Estimated EF 55-60% - LV cavity size is mildly increased - Pacemaker wire in right ventricle - Trace to mild mitral regurg - Mild aortic valve stenosis, mean gradient 11mmHg - Mild tricuspid valve regurg - Estimated PA pressure 42mmHg - Mild pulmonary valve regurg Past Surgical History EGD/colonoscopy 07/21/15 --> normal EGD, 13 polyps in the colon, 4 removed and others fulgurated. Cholecystectomy LAR with anastomosis of the proximal and descending colon to the upper rectum with Dr. rFye. Hysterectomy/bilateral salpingotomy/oophorectomy Repair of left distal radius fracture Cataract surgery Reported Medications -Levothyroxine 100 Mcg PO DAILY -Lasix 80 Mg PO DAILY -Aspirin 325 Mg Tab 325 Mg PO DAILY -Losartan 100 Mg PO DAILY -Novolog Inj (Insulin Aspart) 1,000 Unit/10 Ml Vial 3-5 Units SQ DAILY Max dose at bedtime:( )units; sugars less than 70,(0)units; sugars 150-199,(1) unit; sugars 200-249,(3) units; sugars 250-299,(5) units; sugars 300-349,(7) units; sugars greater than 349,(9) units --Bumex PRN --Kayexalate daily ?Ciprofloxacin (Ciprofloxacin HCl) 250 Mg Tab 250 Mg PO BID 7 Days ?Sodium Bicarbonate 650 Mg Tab 650 Mg PO TIDPC ?Hydroxyzine HCl 25 Mg Tab 25 Mg PO HS Allergies: Coded Allergies: grass pollen (Unverified Allergy, Severe, CONGESTION, 02/23/17) animal dander (Unverified Allergy, Intermediate, NASAL, 02/23/17) NASAL CONGESTION grapefruit (Unverified Allergy, Unknown, due to drug interaction, 02/23/17) metformin (Unverified Adverse Reaction, Severe, Diarrhea, 02/23/17) acetaminophen (Unverified Adverse Reaction, Mild, N/V, 02/23/17) hydrocodone (Unverified Adverse Reaction, Mild, N/V, 02/23/17) propoxyphene (Unverified Adverse Reaction, Mild, N/V, 02/23/17) *MDRO Multi-Drug Resistant Organism (Verified Adverse Reaction, Unknown, 02/23/17) 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 Uncoded Allergies: ALL NARCOTICS (Adverse Reaction, Severe, Nausea/Vomiting, 08/24/06) Family History (+)Family hx of colon cancer Son recently passed in 02/2017 from CVA Another son who has prostate cancer Social History No reported alcohol, tobacco or illicit drug use Pt reports that she typically ambulates at home with a walker She lives with 4 of her her children Physical Exam Vital Signs Vital Signs Date Time Temp Pulse Resp B/P (MAP) Pulse Ox O2 Delivery O2 Flow Rate FiO2 05/11/17 07:46 100 Nasal Cannula 2.00 05/11/17 07:44 79 140/64 05/11/17 04:00 97.8 106 22 171/81 (111) 98 05/11/17 03:32 100 Nasal Cannula 3.00 05/11/17 02:25 100 3.00 05/11/17 02:00 82 25 146/68 (94) 98 Nasal Cannula 4.00 05/11/17 01:39 107 19 147/65 (92) 99 Nasal Cannula 4.00 05/10/17 23:00 106 187/88 12/17/17 22:15 96 Nasal Cannula 3.00 05/10/17 21:44 109 173/81 05/10/17 21:35 108 164/69 05/10/17 20:38 109 175/83 05/10/17 19:50 100 40 05/10/17 19:48 109 196/96 05/10/17 19:45 100 BiPAP 05/10/17 19:18 108 229/112 05/10/17 19:06 100 BiPAP 40.00 05/10/17 19:05 100 BiPAP 40.00 05/10/17 19:05 100 BiPAP 40 05/10/17 19:01 98.2 110 24 229/112 (151) 100 05/10/17 17:57 100 40 Physical Exam GENERAL: This is a well-nourished, well-developed patient, in no apparent distress. SKIN: No rashes, ecchymoses or lesions. Cool and dry. HEENT: Atraumatic. Normocephalic. No temporal or scalp tenderness. No scleral icterus. Airway patent. NECK: Trachea midline, supple, nontender. CARDIO: Regular rate and rhythm without murmurs, gallops, or rubs. RESP: Soft expiratory wheezes audible in bilateral lung rosa, scattered rhonchi audible that clear with coughing, decreased breath sounds in bilateral lung bases. No accessory muscle use noted. ABD: +BS, soft, non-tender, nondistended. No guarding. EXT: Extremities without clubbing, cyanosis, or edema. NEURO: Awake and alert. Motor and sensory grossly within normal limits. Normal speech. Laboratory Laboratory Tests Test 05/10/17 19:15 05/10/17 20:06 05/11/17 02:45 05/11/17 04:03 White Blood Count 7.6 Red Blood Count 3.25 Hemoglobin 9.8 Hematocrit 29.8 Mean Corpuscular Volume 91.9 Mean Corpuscular Hemoglobin 30.1 Mean Corpuscular Hemoglobin Concent 32.7 Red Cell Distribution Width 13.9 Platelet Count 128 Mean Platelet Volume 8.7 Neutrophils (%) (Auto) 56.1 Lymphocytes (%) (Auto) 26.4 Monocytes (%) (Auto) 10.4 Eosinophils (%) (Auto) 6.5 Basophils (%) (Auto) 0.6 Neutrophils # (Auto) 4.3 Lymphocytes # (Auto) 2.0 Monocytes # (Auto) 0.8 Eosinophils # (Auto) 0.5 Basophils # (Auto) 0.0 CBC Comment DIFF FINAL Differential Comment Prothrombin Time 11.6 Prothromb Time International Ratio 1.1 Activated Partial Thromboplast Time 23.8 Blood Urea Nitrogen 38 45 Creatinine 2.59 2.83 Random Glucose 148 265 Total Protein 7.2 Albumin 3.0 Calcium Level 8.0 8.7 Magnesium Level 1.6 Alkaline Phosphatase 173 Aspartate Amino Transf (AST/SGOT) 17 Alanine Aminotransferase (ALT/SGPT) 14 Total Bilirubin 0.7 Sodium Level 139 137 Potassium Level 3.8 3.9 Chloride Level 107 104 Carbon Dioxide Level 21.1 20.9 Anion Gap 11 12 Estimat Glomerular Filtration Rate 17 16 Troponin I 0.04 B-Type Natriuretic Peptide 380 Blood Gas Puncture Site LT RADIAL Blood Gas Patient Temperature 98.6 Blood Gas HCO3 21 Blood Gas Base Excess -3.8 Blood Gas Oxygen Saturation 95 Arterial Blood pH 7.32 Arterial Blood Partial Pressure CO2 43 Arterial Blood Partial Pressure O2 89 Arterial Blood Oxygen Content 14.1 Arterial Blood Carboxyhemoglobin 1.3 Arterial Blood Methemoglobin 0.6 Blood Gas Hemoglobin 10.5 Oxygen Delivery Device BiPAP Blood Gas Ventilator Setting IPAP15/EPAP5 Blood Gas Inspired Oxygen 40 Nasal Screen MRSA (PCR) MRSA DETECTED Result Diagram: 05/10/17191405/11/17402 Imaging Last Impressions Chest X-Ray 05/10/171901 Signed Impressions: Service Date/Time: Wednesday, May 10, 2017 19:37 - CONCLUSION: Cardiomegaly. MD Amrit Rodriguezi VTE Risk Assessment Caprini VTE Risk Assessment: Mod/High Risk (score >= 2) Caprini Risk Assessment Model Point Value = 1 Point Value = 2 Point Value = 3 Point Value = 5 Age 41-60 Minor surgery BMI > 25 kg/m2 Swollen legs Varicose veins or History of unexplained or recurrent spontaneous Oral contraceptives or hormone replacement Sepsis (< 1 month) Serious lung disease, including pneumonia (< 1 month) Abnormal pulmonary function Acute myocardial infarction Congestive heart failure (< 1 month) History of inflammatory bowel disease Medical patient at bed rest Age 61-74 Arthroscopic surgery Major open surgery (> 45 min) Laparoscopic surgery (> 45 min) Malignancy Confined to bed (> 72 hours) Immobilizing plaster cast Central venous access Age >= 75 History of VTE Family history of VTE Factor V Leiden Prothrombin [id number] Lupus anticoagulant Anticardiolipin antibodies Elevated serum homocysteine Heparin-induced thrombocytopenia Other congenital or acquired thrombophilia Stroke (< 1 month) Elective arthroplasty Hip, pelvis, or leg fracture Acute spinal cord injury (< 1 month) Prophylaxis Regimen Total Risk Factor Score Risk Level Prophylaxis Regimen 0-1 Low Early ambulation 2 Moderate Order ONE of the following: *Sequential Compression Device (SCD) *Heparin 5000 units SQ BID 3-4 Higher Order ONE of the following medications: *Heparin 5000 units SQ TID *Enoxaparin/Lovenox 40 mg SQ daily (WT < 150 kg, CrCl > 30 mL/min) *Enoxaparin/Lovenox 30 mg SQ daily (WT < 150 kg, CrCl > 10-29 mL/min) *Enoxaparin/Lovenox 30 mg SQ BID (WT < 150 kg, CrCl > 30 mL/min) AND/OR *Sequential Compression Device (SCD) 5 or more Highest Order ONE of the following medications: *Heparin 5000 units SQ TID (Preferred with Epidurals) *Enoxaparin/Lovenox 40 mg SQ daily (WT < 150 kg, CrCl > 30 mL/min) *Enoxaparin/Lovenox 30 mg SQ daily (WT < 150 kg, CrCl > 10-29 mL/min) *Enoxaparin/Lovenox 30 mg SQ BID (WT < 150 kg, CrCl > 30 mL/min) AND *Sequential Compression Device (SCD) Assessment and Plan Problem List: (1) COPD exacerbation ICD Codes: J44.1 - Chronic obstructive pulmonary disease with (acute) exacerbation Status: Acute Plan: - Pt is an 87 y/o female with atrial fibrillation s/p PPM in 02/2013, CHF, COPD/ restrictive lung disease who follows with Dr. Ricks, CKD stage [address] Carrillo, HTN, Hyperlipidemia, hypothyroidism, and diabetes. - Pt presented to the ED at [facility] on 05/10/17 with complaints of worsening SOB. She states that she developed some cold symptoms with cough, congestion/runny nose and sore throat around 4 days ago. Her son that lives with her had developed cold symptoms prior to this. Yesterday she tried walking to the car to go to scientology but she was very SOB and unable to get to the car. This seemed to worsen throughout the day to the point where she had difficulty speaking due to her SOB. EMS was called. Per the ED documentation, EMS gave her nebulizer treatments as well as IV Solu-Medrol. - On arrival to the ED she was placed on BiPAP, blood pressure was significantly elevated and she was started a nitroglycerin drip in the ED. Pt was given Lasix 80mg IV x one dose and nebulizer treatment in the ED. - CXR in the ED noted cardiomegaly. - BNP mildly elevated at 380 at admission. - Pt was was continued on IV Solu-Medrol 60mg Q6H and Duonebs Q4H scheduled and Q2H PRN. - Pt was resumed on Lasix 80mg po daily. She states that at home she only uses Lasix as needed, not daily and she takes her Duoneb treatments once daily. - Pt currently on 3L of supplemental O2 via NC and overall feeling better. - Pt is being weaned off the Nitro gtt. - Monitor labs closely - Supportive care - DVT prophylaxis with SCDs - Discharge Planning - Anticipate 3-4 day hospital admission - Case discussed with case management, Yadira, on 05/11 to address possible discharge needs - PT consulted, await assessment - Case was discussed with the Charge Nurse, Chantal, as well, and she was informed of pts transfer orders out of ICU once Nitro gtt is stopped (2) Atrial fibrillation ICD Codes: I48.91 - Atrial fibrillation Status: Chronic Plan: - Pt with hx of atrial fibrillation s/p PPM in 02/2013 - In the ED the patient had a run of V. tach noted. - Cont. ASA - Cont. telemetry (3) CKD (chronic kidney disease) stage 4, GFR 15-29 ml/min ICD Codes: N18.4 - Chronic kidney disease, stage IV (severe) Status: Chronic Plan: - Labs are about at baseline - Pt follows with Dr. Carrillo - She had a RUE AVF placed in 04/2015 which occluded and cannot be used - Monitor labs (4) Diabetes ICD Codes: E11.9 - Diabetes mellitus Status: Chronic Plan: - NovoLog SSI - Accu checks - Anticipate steroid hyperglycemia (5) HTN (hypertension) ICD Codes: I10 - Hypertension Status: Chronic Plan: - Pts BP at admission was significantly elevated and pt was started on Nitro gtt - Her home meds were resumed, Losartan - Nitro gtt is being weaned off - Clonidine and Vasotec PRN (6) Hypothyroidism ICD Codes: E03.9 - Hypothyroidism Status: Chronic Plan: - Home meds resumed Assessment and Plan Patient examined. Assessment and plan formulated with Linda Britt PA-C. Roxana agree with the above. Physician Certification 2 Midnight Certification Type: Admission for Inpatient Services Order for Inpatient Services The services are ordered in accordance with Medicare regulations or non- Medicare payer requirements, as applicable. In the case of services not specified as inpatient-only, they are appropriately provided as inpatient services in accordance with the 2-midnight benchmark. Estimated LOS (days): 3 3 days is the estimated time the patient will need to remain in the hospital, assuming treatment plan goals are met and no additional complications. Post-Hospital Plan: Not yet determined Problem Qualifiers (1) Atrial fibrillation: Qualified Codes: I48.2 - Chronic atrial fibrillation (2) Diabetes: (3) HTN (hypertension): Qualified Codes: I10 - Essential (primary) hypertension Maritza Wilson May 11, 2017 08:36 Sam Weir DO May 12, 2017 10:09
[2017-05-11] MEDS ORDERED: ENALAPRILAT 1.25 MG/ML VIAL IV PUSH PRN (09:15)
[2017-05-11] MEDS ORDERED: RESP: ALBUTEROL 2.5 MG/IPRATROPIUM 0.5 MG NEB (PRN) NEB (10:45)
--- NOTE | 2017-05-11 15:52 | EKG ---
Date Performed: 05/10/2017 Time Performed: 20:15:07 PTAGE: 87 years EKG: SINUS TACHYCARDIA ST DEVIATION AND MODERATE T-WAVE ABNORMALITY, CONSIDER INFERIOR ISCHEMIA ABNORMAL ECG Compared to PREVIOUS TRACING , heart rate has increased significantly. Previously present paced rhyth m is no longer present. Clinical correlation recommended. PREVIOUS TRACIN02/23/2017 17.06 DOCTOR: Jeancarlos Benedict Interpretating Date/Time 05/11/2017 15:51:57
[2017-05-11] MEDS: hydrOXYzine HCL 25 MG TAB PO SCH (20:17)
[2017-05-12] VITALS (21 sets, daily range): BP systolic 129–159; BP diastolic 60–112; PULSE 70–105; RESP 22–54; TEMP 98.3–98.4; O2SAT 89–100
[2017-05-12] MEDS: RESP: ALBUTEROL 2.5 MG/IPRATROPIUM 0.5 MG NEB (SCH) NEB ×7 (00:07→23:29)
[2017-05-12] MEDS: methylPREDNISolone SOD SUCC 125 MG/2 ML VIAL IV PUSH SCH ×4 (00:18→16:59)
[2017-05-12] MEDS: CHLORHEXIDINE GLUCONATE 2 % 1 PACK (2 CLOTHS)(taper/protocol) TOPICAL SCH (04:00)
[2017-05-12] MEDS: LEVOTHYROXINE SODIUM 100 MCG TAB PO SCH (06:34)
[2017-05-12] MEDS: INSULIN ASPART SUPPLEMENTAL SCALE SQ SCH ×4 (08:00→22:04)
[2017-05-12] MEDS: LOSARTAN 50 MG TAB PO SCH (08:15)
[2017-05-12] MEDS: FUROSEMIDE 80 MG TAB PO SCH (08:15)
[2017-05-12] MEDS: SODIUM BICARBONATE 650 MG TAB PO SCH ×3 (08:15→16:59)
[2017-05-12] MEDS: ASPIRIN 325 MG TAB PO SCH (08:15)
--- NOTE | 2017-05-12 10:09 | HHI.PR ---
Subjective Remarks Pt was on BiPap overnight. Currently comfortable on 2L NC. Less SOB from admission. No new complaints. Objective Vitals Vital Signs Date Time Temp Pulse Resp B/P (MAP) Pulse Ox O2 Delivery O2 Flow Rate FiO2 05/12/17 09:10 99 Nasal Cannula 2.00 05/12/17 08:01 98 33 142/86 (104) 94 05/12/17 08:00 96 54 95 05/12/17 06:00 85 05/12/17 04:00 86 05/12/17 04:00 98.3 86 22 149/67 (94) 100 05/12/17 03:25 99 35 05/12/17 02:00 85 05/12/17 00:07 100 35 05/12/17 00:00 82 05/12/17 00:00 98.3 82 27 140/65 (90) 93 05/11/17 22:00 82 05/11/17 20:00 105 05/11/17 20:00 98.4 105 24 154/82 (106) 98 05/11/17 19:40 99 Nasal Cannula 2.00 05/11/17 18:00 106 05/11/17 16:00 88 05/11/17 16:00 97.3 88 20 144/64 (90) 99 05/11/17 14:00 80 05/11/17 12:00 97.7 99 20 130/63 (85) 99 05/11/17 12:00 99 05/11/17 11:16 69 112/54 Result Diagram: 05/10/17 1915 05/11/17 0403 Imaging Last Impressions Chest X-Ray 05/10/171901 Signed Impressions: Service Date/Time: Wednesday, May 10, 2017 19:37 - CONCLUSION: Cardiomegaly. Navi Mckeon MD Objective Remarks GENERAL: This is a well-nourished, well-developed patient, in no apparent distress. CARDIOVASCULAR: Regular rate and rhythm without murmurs, gallops, or rubs. RESPIRATORY: air movement improved from 05/11, still with b/l diffuse inspiratory & expiratory wheezing GASTROINTESTINAL: Abdomen soft, non-tender, nondistended. Normal active bowel sounds MUSCULOSKELETAL: Extremities without clubbing, cyanosis, or edema. NEURO: Alert & Oriented x4 to person, place, time, situation. Moves all ext x4 A/P Problem List: (1) COPD exacerbation ICD Codes: J44.1 - Chronic obstructive pulmonary disease with (acute) exacerbation Status: Acute Plan: - Pt is an 87 y/o female with atrial fibrillation s/p PPM in 02/2013, CHF, COPD/ restrictive lung disease who follows with Dr. Ricks, CKD stage [address] Carrillo, HTN, Hyperlipidemia, hypothyroidism, and diabetes. - Pt presented to the ED at [facility] [place] on 05/10/17 with complaints of worsening SOB. She states that she developed some cold symptoms with cough, congestion/runny nose and sore throat around 4 days ago. Her son that lives with her had developed cold symptoms prior to this. Yesterday she tried walking to the car to go to [employer] but she was very SOB and unable to get to the car. This seemed to worsen throughout the day to the point where she had difficulty speaking due to her SOB. EMS was called. Per the ED documentation, EMS gave her nebulizer treatments as well as IV Solu-Medrol. - On arrival to the ED she was placed on BiPAP, blood pressure was significantly elevated and she was started a nitroglycerin drip in the ED. Pt was given Lasix 80mg IV x one dose and nebulizer treatment in the ED. - CXR in the ED noted cardiomegaly. - BNP mildly elevated at 380 at admission. - Pt was was continued on IV Solu-Medrol 60mg Q6H and Duonebs Q4H scheduled and Q2H PRN. - Pt was resumed on Lasix 80mg po daily. She states that at home she only uses Lasix as needed, not daily and she takes her Duoneb treatments once daily. - Pt currently on 3L of supplemental O2 via NC and overall feeling better. - off NTG drip - continue IV solumedrol and duonebs - anticipate another 2-3 days of hospitalization and then SNF - Supportive care - DVT prophylaxis with SCDs - Discharge Planning - Anticipate another 2-3 day hospital admission - Case discussed with case management, Yadira, on 05/11 to address possible discharge needs - PT - Case was discussed with the Charge Nurse, Chantal, (07/12) - anticipate SNF at conclusion of hospitalization (2) Atrial fibrillation ICD Codes: I48.91 - Atrial fibrillation Status: Chronic Plan: - Pt with hx of atrial fibrillation s/p PPM in 02/2013 - In the ED the patient had a run of V. tach noted. - Cont. ASA - Cont. telemetry (3) CKD (chronic kidney disease) stage 4, GFR 15-29 ml/min ICD Codes: N18.4 - Chronic kidney disease, stage IV (severe) Status: Chronic Plan: - Labs are about at baseline - Pt follows with Dr. Carrillo - She had a RUE AVF placed in 04/2015 which occluded and cannot be used - Monitor labs (4) Diabetes ICD Codes: E11.9 - Diabetes mellitus Status: Chronic Plan: - NovoLog SSI - Accu checks - Anticipate steroid hyperglycemia (5) HTN (hypertension) ICD Codes: I10 - Hypertension Status: Chronic Plan: - Pts BP at admission was significantly elevated and pt was started on Nitro gtt - Her home meds were resumed, Losartan - Nitro gtt is being weaned off - Clonidine and Vasotec PRN (6) Hypothyroidism ICD Codes: E03.9 - Hypothyroidism Status: Chronic Plan: - Home meds resumed Problem Qualifiers (1) Atrial fibrillation: Qualified Codes: I48.2 - Chronic atrial fibrillation (2) Diabetes: (3) HTN (hypertension): Qualified Codes: I10 - Essential (primary) hypertension Sam Weir DO May 12, 2017 10:09
[2017-05-12 18:35] LABS: BICARBONATE 23.1 MEQ/L (21.0-32.0); CALCIUM 8.9 MG/DL (8.5-10.1); CREATININE 3.26 MG/DL (0.50-1.00); MAGNESIUM 1.8 MG/DL (1.5-2.5)
[2017-05-12] MEDS: hydrOXYzine HCL 25 MG TAB PO SCH (22:04)
[2017-05-13] VITALS (29 sets, daily range): BP systolic 102–162; BP diastolic 52–100; PULSE 75–98; RESP 21–47; TEMP 98.3–98.6; O2SAT 61–100
[2017-05-13] MEDS: RESP: ALBUTEROL 2.5 MG/IPRATROPIUM 0.5 MG NEB (SCH) NEB ×6 (03:13→23:23)
[2017-05-13] MEDS: CHLORHEXIDINE GLUCONATE 2 % 1 PACK (2 CLOTHS)(taper/protocol) TOPICAL SCH (04:00)
[2017-05-13 05:52] LABS: BASOPHIL % 0.2 % (0.0-2.0); HEMATOCRIT 27.6 % (35.0-46.0); HEMOGLOBIN 9.4 GM/DL (11.6-15.3); LYMPH % 3.2 % (9.0-44.0); LYMPHOCYTE # 0.5 TH/MM3 (1.0-4.8); MEAN CELL VOLUME 89.5 FL (80.0-100.0); MEAN CORPUSCULAR HEMOGLOBIN 30.4 PG (27.0-34.0); MEAN PLATELET VOLUME 8.5 FL (7.0-11.0); MONO % 4.9 % (0.0-8.0); MONOCYTE # 0.7 TH/MM3 (0-0.9); NEUT % 91.7 % (16.0-70.0); PLATELET COUNT 184 TH/MM3 (150-450); RED BLOOD COUNT 3.08 MIL/MM3 (4.00-5.30); RED CELL DISTRIBUTION WIDTH 14.1 % (11.6-17.2); WHITE BLOOD COUNT 14.2 TH/MM3 (4.0-11.0)
[2017-05-13] MEDS: LEVOTHYROXINE SODIUM 100 MCG TAB PO SCH (06:00)
[2017-05-13] MEDS: methylPREDNISolone SOD SUCC 125 MG/2 ML VIAL IV PUSH SCH ×2 (06:00)
[2017-05-13 06:04] LABS: BICARBONATE 25.3 MEQ/L (21.0-32.0); CALCIUM 8.6 MG/DL (8.5-10.1); CREATININE 3.09 MG/DL (0.50-1.00); MAGNESIUM 1.7 MG/DL (1.5-2.5)
[2017-05-13] MEDS: INSULIN ASPART SUPPLEMENTAL SCALE SQ SCH ×4 (07:20→21:00)
[2017-05-13] MEDS: SODIUM BICARBONATE 650 MG TAB PO SCH ×3 (09:09→16:58)
[2017-05-13] MEDS: FUROSEMIDE 80 MG TAB PO SCH (09:10)
[2017-05-13] MEDS: LOSARTAN 50 MG TAB PO SCH (09:10)
[2017-05-13] MEDS: ASPIRIN 325 MG TAB PO SCH (09:10)
--- NOTE | 2017-05-13 10:21 | HHI.PR ---
Subjective Remarks Patient currently resting in chair- offers no specific complaints Patient tolerated 2L via NC overnight Objective Vitals Vital Signs Date Time Temp Pulse Resp B/P (MAP) Pulse Ox O2 Delivery O2 Flow Rate FiO2 05/13/17 09:20 98 38 162/83 (109) 83 05/13/17 09:14 88 29 162/95 (117) 100 05/13/17 09:01 92 47 160/100 (120) 85 05/13/17 08:13 98 Nasal Cannula 2.00 05/13/17 08:01 76 21 133/60 (84) 98 05/13/17 08:00 77 21 96 05/13/17 06:00 86 05/13/17 04:00 83 05/13/17 04:00 98.3 83 21 130/60 (83) 94 05/13/17 03:14 99 Nasal Cannula 2.00 05/13/17 02:00 81 05/13/17 00:00 82 05/13/17 00:00 98.6 82 22 131/70 (90) 93 05/12/17 23:29 97 Nasal Cannula 2.00 05/12/17 22:00 81 05/12/17 20:00 98.4 105 24 129/60 (83) 98 05/12/17 20:00 84 05/12/17 19:46 100 Nasal Cannula 2.00 05/12/17 18:00 83 05/12/17 16:00 82 05/12/17 16:00 98.3 05/12/17 14:01 70 05/12/17 14:01 70 22 129/60 (83) 96 05/12/17 14:00 71 05/12/17 14:00 71 22 95 05/12/17 13:14 92 05/12/17 13:14 92 29 152/93 (112) 89 05/12/17 13:01 102 35 159/112 (128) 99 05/12/17 13:01 102 05/12/17 12:01 93 27 154/65 (94) 93 05/12/17 12:01 93 05/12/17 12:00 90 05/12/17 12:00 90 29 93 Result Diagram: 05/13/1730405/13/17 030 Imaging Last Impressions Chest X-Ray 05/10/171901 Signed Impressions: Service Date/Time: Wednesday, May 10, 2017 19:37 - CONCLUSION: Cardiomegaly. Navi Mckeon MD Objective Remarks GENERAL: This is a well-nourished, well-developed patient, in no apparent distress. CARDIOVASCULAR: Regular rate and rhythm RESPIRATORY: air movement improved, clear through out GASTROINTESTINAL: Abdomen soft, non-tender, nondistended. Normal active bowel sounds MUSCULOSKELETAL: Extremities without clubbing, cyanosis, or edema. NEURO: Alert & Oriented x4 to person, place, time, situation. Moves all ext x4 A/P Problem List: (1) COPD exacerbation ICD Codes: J44.1 - Chronic obstructive pulmonary disease with (acute) exacerbation Status: Acute Plan: - Pt is an 87 y/o female with atrial fibrillation s/p PPM in 02/2013, CHF, COPD/ restrictive lung disease who follows with Dr. Ricks, CKD stage [address] Carrillo, HTN, Hyperlipidemia, hypothyroidism, and diabetes. - Pt presented to the ED at [facility] [place] on 05/10/17 with complaints of worsening SOB. She states that she developed some cold symptoms with cough, congestion/runny nose and sore throat around 4 days ago. Her son that lives with her had developed cold symptoms prior to this. Yesterday she tried walking to the car to go to [employer] but she was very SOB and unable to get to the car. This seemed to worsen throughout the day to the point where she had difficulty speaking due to her SOB. EMS was called. Per the ED documentation, EMS gave her nebulizer treatments as well as IV Solu-Medrol. - On arrival to the ED she was placed on BiPAP, blood pressure was significantly elevated and she was started a nitroglycerin drip in the ED. Pt was given Lasix 80mg IV x one dose and nebulizer treatment in the ED. - CXR in the ED noted cardiomegaly. - BNP mildly elevated at 380 at admission. - Pt was was continued on IV Solu-Medrol 60mg Q6H and Duonebs Q4H scheduled and Q2H PRN. - transition to PO prednisone 30 mg PO BID 05/13 - Pt was resumed on Lasix 80mg po daily. She states that at home she only uses Lasix as needed, not daily and she takes her Duoneb treatments once daily. - (05/13) BUN elevated 70, creatinine 3.09- will hold Lasix and give 500ml of NS recheck BMP in AM - Pt currently on 2L of supplemental O2 via NC and overall feeling better. - off NTG drip - continue IV solumedrol and duonebs - anticipate another 1-2 days of hospitalization. Patient refusing SNF placement at time of DC agreeable to DC HHC and home oxygen - walk test ordered - Supportive care - DVT prophylaxis with SCDs - Discharge Planning - Anticipate another 1-2 day hospital admission - Case discussed with case management, Yadira, on 05/13 to address possible discharge needs. Patient refusing SNF placement at time of DC agreeable to DC HHC and home oxygen - PT - Case was discussed with the Charge Nurse, Chantal, (07/12) (2) Atrial fibrillation ICD Codes: I48.91 - Atrial fibrillation Status: Chronic Plan: - Pt with hx of atrial fibrillation s/p PPM in 02/2013 - In the ED the patient had a run of V. tach noted. - Cont. ASA - Cont. telemetry (3) CKD (chronic kidney disease) stage 4, GFR 15-29 ml/min ICD Codes: N18.4 - Chronic kidney disease, stage IV (severe) Status: Chronic Plan: - baseline GFR 14 -16 - Pt follows with Dr. Carrillo - She had a RUE AVF placed in 04/2015 which occluded and cannot be used - Monitor labs (4) Diabetes ICD Codes: E11.9 - Diabetes mellitus Status: Chronic Plan: - NovoLog SSI - Accu checks - Anticipate steroid hyperglycemia (5) HTN (hypertension) ICD Codes: I10 - Hypertension Status: Chronic Plan: - Pts BP at admission was significantly elevated and pt was started on Nitro gtt - Her home meds were resumed, Losartan - Nitro gtt is being weaned off - Clonidine and Vasotec PRN (6) Hypothyroidism ICD Codes: E03.9 - Hypothyroidism Status: Chronic Plan: - Home meds resumed Assessment and Plan Patient examined. Assessment and plan formulated with Linda Britt PA-C. I agree with the above. Pt lungs are much improved on physical exam. Good air movement with occasional scattered wheezing. Change solumedrol to PO prednisone. Pt may require home O2. Will request walk test. Pt adamantly declines SNF. Will arrange for HHC and home Pt upon discharge. Case again d/w Manager Of Organizational Development, Yadira. Anticipate d/c to home with HHC & home PT in 1-2 days. Problem Qualifiers (1) Atrial fibrillation: Qualified Codes: I48.2 - Chronic atrial fibrillation (2) Diabetes: (3) HTN (hypertension): Qualified Codes: I10 - Essential (primary) hypertension Linda Britt May 13, 2017 10:21 Sam Weir DO May 13, 2017 11:10
[2017-05-13] MEDS ORDERED: OXYGENDME NAS.CANULA (10:47)
[2017-05-13] MEDS ORDERED: OXYGENTANK NAS.CANULA (10:47)
--- NOTE | 2017-05-13 10:48 | HHI.FF ---
Face to Face Verification Diagnosis: (1) Shortness of breath (2) COPD exacerbation Physical Therapy Order: Evaluate and Treat, Strength and gait training Home Health Nursing Order: Medical education CHF education Oxygen administration education Medication education-adverse effect Nursing assessment with vital signs I have seen patient Mayela Crenshaw on 05/13/17. My clinical findings support the need for the requested home health care services because: Ltd mobility - disease progression Limited ability to care for self I certify that my clinical findings support that this patient is homebound because: Hx COPD- exertion dyspnea/weakness Unsteady gait/balance Linda Britt May 13, 2017 10:48 Sam Weir DO May 13, 2017 11:07
[2017-05-13] MEDS ORDERED: SODIUM CHLORID 0.9% 500 ML INJ 500 ML IV SCH (11:00)
[2017-05-13] MEDS: hydrOXYzine HCL 25 MG TAB PO SCH (21:18)
[2017-05-13] MEDS: predniSONE 10 MG TAB PO SCH (21:18)
[2017-05-14] VITALS (7 sets, daily range): BP systolic 124–143; BP diastolic 57–61; PULSE 74–103; RESP 25–45; TEMP 98; O2SAT 87–100
[2017-05-14] MEDS: CHLORHEXIDINE GLUCONATE 2 % 1 PACK (2 CLOTHS)(taper/protocol) TOPICAL SCH (04:00)
[2017-05-14] MEDS: RESP: ALBUTEROL 2.5 MG/IPRATROPIUM 0.5 MG NEB (SCH) NEB ×3 (04:31→11:48)
[2017-05-14] MEDS: LEVOTHYROXINE SODIUM 100 MCG TAB PO SCH (06:00)
[2017-05-14] MEDS: INSULIN ASPART SUPPLEMENTAL SCALE SQ SCH (08:00)
[2017-05-14] MEDS ORDERED: IPRA0.02 NEB (08:32)
[2017-05-14] MEDS ORDERED: ALBU0.08 NEB (08:32)
[2017-05-14] MEDS ORDERED: SYMB160A INH (08:32)
[2017-05-14] MEDS ORDERED: PRED10 PO (08:35)
[2017-05-14] MEDS ORDERED: NEBULIZER1 MI1 (08:37)
--- NOTE | 2017-05-14 08:41 | HHI.DS ---
Discharge Summary Admission Date May 10, 2017 at 21:57 Discharge Date: May 14, 2017 Admitting Diagnosis COPD exacerbation, history of CHF, hypertensive urgency (1) COPD exacerbation Diagnosis: Principal ICD Codes: J44.1 - Chronic obstructive pulmonary disease with (acute) exacerbation Status: Acute (2) Atrial fibrillation Diagnosis: Secondary ICD Codes: I48.91 - Atrial fibrillation Status: Chronic (3) CKD (chronic kidney disease) stage 4, GFR 15-29 ml/min Diagnosis: Secondary ICD Codes: N18.4 - Chronic kidney disease, stage IV (severe) Status: Chronic (4) Diabetes Diagnosis: Secondary ICD Codes: E11.9 - Diabetes mellitus Status: Chronic (5) HTN (hypertension) Diagnosis: Secondary ICD Codes: I10 - Hypertension Status: Chronic (6) Hypothyroidism Diagnosis: Secondary ICD Codes: E03.9 - Hypothyroidism Status: Chronic Consultants none Procedures none Brief History Ms. Crenshaw is a pleasant 87 y/o female with atrial fibrillation s/p PPM in 02/2013 , CHF, COPD/restrictive lung disease who follows with Dr. Ricks, CKD stage [address] Carrillo, HTN, Hyperlipidemia, hypothyroidism, and diabetes. Pt presented to the ED at [facility] [place] on 05/10/17 with complaints of worsening SOB. She states that she developed some cold symptoms with cough, congestion/runny nose and sore throat around 4 days ago. Her son that lives with her had developed cold symptoms prior to this. She states that she was just using OCT Vics Vapor rub for her sold symptoms. Yesterday she tried walking to the car to go to [employer] but she was very SOB and unable to get to the car. This seemed to worsen throughout the day to the point where she had difficulty speaking due to her SOB. EMS was called. Per the ED documentation, EMS gave her nebulizer treatments as well as IV Solu-Medrol. On arrival she was placed on BiPAP, blood pressure was significantly elevated and she was started a nitroglycerin drip in the ED. Pt was given Lasix 80mg IV x one dose and nebulizer treatment in the ED. CXR in the ED noted cardiomegaly. Pt was was continued on IV Solu-Medrol 60mg Q6H and Duonebs Q4H. Pt was resumed on Lasix 80mg po daily. She states that at home she only uses Lasix as needed, not daily and she takes her Duoneb treatments once daily. At the time of examination this morning pt is on 3L of supplemental O2 via NC and overall feeling better. Pt is being weaned off the Nitro gtt. In the ED the patient had a run of V. tach noted. Pt denies any chest pain, abdominal pain, nausea, vomiting, headache, change in vision. She takes a daily ASA 325mg HS. CBC/BMP: 05/13/17 0305 05/13/17 0305 Significant Findings Laboratory Tests Test 05/12/17 17:36 05/13/17 03:05 Blood Urea Nitrogen 60 MG/DL (7-18) 70 MG/DL (7-18) Creatinine 3.26 MG/DL (0.50-1.00) 3.09 MG/DL (0.50-1.00) Random Glucose 263 MG/DL (74-106) Sodium Level 132 MEQ/L (136-145) 133 MEQ/L (136-145) Estimat Glomerular Filtration Rate 13 ML/MIN (>89) 14 ML/MIN (>89) White Blood Count 14.2 TH/MM3 (4.0-11.0) Red Blood Count 3.08 MIL/MM3 (4.00-5.30) Hemoglobin 9.4 GM/DL (11.6-15.3) Hematocrit 27.6 % (35.0-46.0) Neutrophils (%) (Auto) 91.7 % (16.0-70.0) Lymphocytes (%) (Auto) 3.2 % (9.0-44.0) Neutrophils # (Auto) 13.0 TH/MM3 (1.8-7.7) Lymphocytes # (Auto) 0.5 TH/MM3 (1.0-4.8) Chloride Level 97 MEQ/L (98-107) Imaging Last Impressions Chest X-Ray 05/10/17 1902 Signed Impressions: Service Date/Time: Wednesday, May 10, 2017 19:37 - CONCLUSION: Cardiomegaly. Navi Mckeon MD PE at Discharge GENERAL: This is a well-nourished, well-developed patient, in no apparent distress. CARDIOVASCULAR: Regular rate and rhythm RESPIRATORY: air movement improved, clear through out GASTROINTESTINAL: Abdomen soft, non-tender, nondistended. Normal active bowel sounds MUSCULOSKELETAL: Extremities without clubbing, cyanosis, or edema. NEURO: Alert & Oriented x4 to person, place, time, situation. Moves all ext x4 Hospital Course COPD exacerbation - Pt is an 87 y/o female with atrial fibrillation s/p PPM in 02/2013, CHF, COPD/ restrictive lung disease who follows with Dr. Ricks, CKD stage [address] Carrillo, HTN, Hyperlipidemia, hypothyroidism, and diabetes. - Pt presented to the ED at [facility] [place] on 05/10/17 with complaints of worsening SOB. She states that she developed some cold symptoms with cough, congestion/runny nose and sore throat around 4 days ago. Her son that lives with her had developed cold symptoms prior to this. Yesterday she tried walking to the car to go to [employer] but she was very SOB and unable to get to the car. This seemed to worsen throughout the day to the point where she had difficulty speaking due to her SOB. EMS was called. Per the ED documentation, EMS gave her nebulizer treatments as well as IV Solu-Medrol. - On arrival to the ED she was placed on BiPAP, blood pressure was significantly elevated and she was started a nitroglycerin drip in the ED. Pt was given Lasix 80mg IV x one dose and nebulizer treatment in the ED. - CXR in the ED noted cardiomegaly. - BNP mildly elevated at 380 at admission. - Pt was was continued on IV Solu-Medrol 60mg Q6H and Duonebs Q4H scheduled and Q2H PRN. - transition to PO prednisone 30 mg PO BID 05/13 - Pt was resumed on Lasix 80mg po daily. She states that at home she only uses Lasix as needed, not daily and she takes her Duoneb treatments once daily. - (05/13) BUN elevated 70, creatinine 3.09- will hold Lasix and give 500ml of NS recheck BMP in AM - Pt currently on 2L of supplemental O2 via NC and overall feeling better. - off NTG drip - continue IV solumedrol and duonebs - Patient refusing SNF placement at time of DC agreeable to DC HHC and home oxygen - Supportive care - DVT prophylaxis with SCDs Atrial fibrillation - Pt with hx of atrial fibrillation s/p PPM in 02/2013 - In the ED the patient had a run of V. tach noted. - Cont. ASA - Cont. telemetry CKD (chronic kidney disease) stage 4, GFR 15-29 ml/min - baseline GFR 14 -16 - Pt follows with Dr. Carrillo - She had a RUE AVF placed in 04/2015 which occluded and cannot be used - Monitor labs Diabetes - NovoLog SSI - Accu checks - Anticipate steroid hyperglycemia HTN (hypertension) - Pts BP at admission was significantly elevated and pt was started on Nitro gtt - Her home meds were resumed, Losartan - Nitro gtt was weaned off - Clonidine and Vasotec PRN Hypothyroidism - Home meds resumed Pt Condition on Discharge: Stable Discharge Disposition: Disch w/ Home Health Serv Discharge Instructions DIET: Follow Instructions for: As Tolerated, No Restrictions Activities you can perform: Regular-No Restrictions Follow up Referrals: PCP Follow-up - [address] Parra New Orders: BASIC METABOLIC PROF - 3-5 Days New Medications: Albuterol Neb (Albuterol Neb) 2.5 Mg/3 Ml Neb 2.5 MG NEB Q4HR NEB PRN for SHORTNESS OF BREATH, #60 NEBULE 0 Refills Budesonide-Formoterol Inh (Symbicort Inh) 160-4.5 Mcg/Act Aero 1 PUFF INH Q12HR, #1 INHALER 0 Refills Ipratropium Neb (Ipratropium Neb) 0.5 Mg/2.5 Ml Amp 0.5 MG NEB Q4HR NEB PRN for SHORTNESS OF BREATH, #180 NEBULE 0 Refills Nebulizer (Nebulizer) 1 Mis Mis EA .ROUTE DIRECTED for Breathing Treatment, #1 0 Refills Oxygen (O2) (Oxygen (O2)) Device LITER JAMES.CANULA CONTINUOUS for Prevent Hypoxemia, #2 Oxygen Concentrator Portable Gaseous 2 L/min via Nasal Canula Continuous For 1 month Oxygen tank (Oxygen tank) 1 Ea Tank LITER JAMES.CANULA CONTINUOUS for HYPOXEMIA PREVENTION, #2 Oxygen Concentrator Portable Gaseous 2 L/min via Nasal Cannula Continuous For 1 month Prednisone (Prednisone) 10 Mg Tab 10 MG PO DIRECTED for steroid taper, #65 TAB 0 Refills take 30 mg twice a day by mouth for five days, then take 20 mg twice a day by mouth for five days, then take 10 mg twice a day by mouth for five days, then take 10 mg once a day by mouth for fuve days, then stop Continued Medications: Aspirin (Aspirin) 325 Mg Tab 325 MG PO DAILY, #30 TAB 0 Refills Furosemide (Lasix) 80 Mg Tab 80 MG PO DAILY, #30 TAB 0 Refills Hydroxyzine HCl (Hydroxyzine HCl) 25 Mg Tab 25 MG PO HS, TAB 0 Refills Insulin Aspart Inj (Novolog Inj) 1,000 Unit/10 Ml Vial 3-5 UNITS SQ DAILY for Blood Sugar Management, #10 ML 0 Refills Max dose at bedtime:( )units; sugars less than 70,(0)units; sugars 150-199,(1) unit; sugars 200-249,(3) units; sugars 250-299,(5) units; sugars 300-349,(7) units; sugars greater than 349,(9) units Levothyroxine (Levothyroxine) 100 Mcg Tab 100 MCG PO DAILY for Thyroid, #30 TAB 0 Refills Losartan (Losartan) 100 Mg Tab 100 MG PO DAILY for Blood Pressure Management, #30 TAB 0 Refills Sodium Bicarbonate (Sodium Bicarbonate) 650 Mg Tab 650 MG PO TIDPC, #90 TAB 0 Refills Discontinued Medications: Ciprofloxacin (Ciprofloxacin) 250 Mg Tab 250 MG PO BID for Infection for 7 Days, #14 TAB 0 Refills Additional Information Patient examined. Assessment and plan formulated with Linda Britt PA-C. I agree with the above. Due to pt's advanced age and comorbidities, I feel that pt is at high risk for readmission. I offered to discharge pt to SNF, but pt declined SNF. I have arranged HHC and home PT. Pt will be discharge on a prednisone taper, symbicort, and albuterol/ ipratropium by nebulizer Home oxygen has been arranged. f/u with PCP, Dr. Ko in 1 week Linda Britt May 14, 2017 08:41 Sam Weir DO May 14, 2017 11:21
[2017-05-14] MEDS: LOSARTAN 50 MG TAB PO SCH (08:43)
[2017-05-14] MEDS: ASPIRIN 325 MG TAB PO SCH (08:43)
[2017-05-14] MEDS: SODIUM BICARBONATE 650 MG TAB PO SCH (08:43)
[2017-05-14] MEDS: predniSONE 10 MG TAB PO SCH (08:43)
[2017-05-14 10:57] LABS: BICARBONATE 25.9 MEQ/L (21.0-32.0); CALCIUM 8.2 MG/DL (8.5-10.1); CREATININE 3.11 MG/DL (0.50-1.00)
--- NOTE | 2017-05-14 11:17 | HHI.DCPOC ---
Discharge Care Plan Diagnosis: (1) COPD exacerbation Goals to Promote Your Health * To prevent worsening of your condition and complications * To maintain your health at the optimal level Directions to Meet Your Goals Take your medications as prescribed Follow your dietary instruction Follow activity as directed Keep your appointments as scheduled Take your immunizations and boosters as scheduled If your symptoms worsen call your PCP, if no PCP go to Urgent Care Center or Emergency Room Smoking is Dangerous to Your Health. Avoid second hand smoke Call the 24-hour hour crisis hotline for domestic abuse at Sam Weir DO May 14, 2017 11:17
== END 2017-05-14 12:20 | disposition home health service (06) | DRG 191 ==
LOC: NEPE 18:53 → NEDA 21:57 → HIMW 05-11 02:25
PROVIDERS: ADMIT Hospitalist; ATTEND Hospitalist
PROC: 5A09457 Assistance with Respiratory Ventilation, 24-96 Consecutive Hours, Continuous Positive Airway Pressure (ICD-10-PCS; principal; 2017-05-10)
DX: J44.1 Chronic obstructive pulmonary disease with (acute) exacerbation (principal); I47.2 Ventricular tachycardia; N18.4 Chronic kidney disease, stage 4 (severe); I13.0 Hypertensive heart and chronic kidney disease with heart failure and stage 1 through stage 4 chronic kidney disease, or unspecified chronic kidney disease; Q60.0 Renal agenesis, unilateral; I50.9 Heart failure, unspecified; I48.2 Chronic atrial fibrillation; E11.22 Type 2 diabetes mellitus with diabetic chronic kidney disease; I16.0 Hypertensive urgency; E11.40 Type 2 diabetes mellitus with diabetic neuropathy, unspecified; E11.319 Type 2 diabetes mellitus with unspecified diabetic retinopathy without macular edema; Z79.4 Long term (current) use of insulin; E87.70 Fluid overload, unspecified; Z95.0 Presence of cardiac pacemaker; J98.4 Other disorders of lung; I51.7 Cardiomegaly; E78.5 Hyperlipidemia, unspecified; E03.9 Hypothyroidism, unspecified; Z79.82 Long term (current) use of aspirin; I70.0 Atherosclerosis of aorta; D64.9 Anemia, unspecified; Z86.718 Personal history of other venous thrombosis and embolism; Z85.038 Personal history of other malignant neoplasm of large intestine; Z86.010 Personal history of colon polyps; Z80.0 Family history of malignant neoplasm of digestive organs
CPT/HCPCS: 36600; 51702; 71010; 76937; 80048; 80053; 82805; 82948; 83735; 83880; 84484; 85025; 85610; 85730; 87641; 93005; 94002; 94003; 94150; 94620; 94640; 94664; 94667; 94668; 96365; 96366; 96375; J1815; J1940; J2930; J7040; J7512

== ENCOUNTER 2017-05-22 18:28 | Inpatient (IN) | payer MEDICARE ==
[~2017-05-22] VITALS: Ht 172.7 cm; Wt 101.2 kg
[~2017-05-22 18:28] MED LIST changes: +ALBU0.08 NEB; +ASPI-183 PO; -CEPH-460 PO; +FURO1TAB61 PO; +HYDR-3133 PO; +IPRA0.02 NEB; -KAYEPOW PO; +LEVO100T5 PO; +LOSA100T PO; +NEBULIZER1 MI1; +NOVOLOGP2 SQ; +OXYGENDME NAS.CANULA; +OXYGENTANK NAS.CANULA; +PRED10 PO; +SODI650T PO; +SYMB160A INH
[2017-05-22 18:34] VITALS: BP 114/74; PULSE 81; RESP 25; TEMP 99.7; O2SAT 92
[2017-05-22] MEDS ORDERED: methylPREDNISolone SOD SUCC 125 MG/2 ML VIAL IV PUSH ONE (19:00)
[2017-05-22] MEDS ORDERED: ONDANSETRON HCL 4 MG/2 ML VIAL IV PUSH ONE (19:00)
[2017-05-22] MEDS ORDERED: SODIUM CHLORIDE 0.9% FLUSH 10 ML FLUSH IVF PRN (19:00)
--- NOTE | 2017-05-22 19:04 | PD ---
Physical Exam Narrative Patient was seen by me and my executive staff assistant. Data Data Last Documented VS Vital Signs Date Time Temp Pulse Resp B/P (MAP) Pulse Ox O2 Delivery O2 Flow Rate FiO2 05/22/17 18:44 2.00 05/22/17 18:34 99.7 81 25 114/74 (87) 92 Orders Orders Electrocardiogram (05/22/17 18:56) Complete Blood Count With Diff (05/22/17 18:56) Comprehensive Metabolic Panel (05/22/17 18:56) Ckmb (Isoenzyme) Profile (05/22/17 18:56) Troponin I (05/22/17 18:56) B-Type Natriuretic Peptide (05/22/17 18:56) Prothrombin Time / Inr (Pt) (05/22/17 18:56) Act Partial Throm Time (Ptt) (05/22/17 18:56) Lipase (05/22/17 18:56) Magnesium (Mg) (05/22/17 18:56) Influenzae A/B Antigen (05/22/17 18:56) Chest, Single Ap (05/22/17 18:56) Iv Access Insert/Monitor (05/22/17 18:56) Ecg Monitoring (05/22/17 18:56) Oxygen Administration (05/22/17 18:56) Oximetry (05/22/17 18:56) Sodium Chloride 0.9% Flush (Ns Flush) (05/22/17 19:00) Ondansetron Inj (Zofran Inj) (05/22/17 19:00) Methylprednisolone So Succ Inj (Solumedr (05/22/17 19:00) Albuterol-Ipratropium Neb (Duoneb Neb) (05/22/17 19:00) Lactic Acid Sepsis Protocol (05/22/17 19:02) Blood Culture (05/22/17 19:02) MDM Supervised Visit with [facility]: Yes Jose Hassan MD May 22, 2017 19:04
[2017-05-22] MEDS: RESP: ALBUTEROL 2.5 MG/IPRATROPIUM 0.5 MG NEB (SCH) INH (19:21)
[2017-05-22 19:43] VITALS: O2SAT 94
--- NOTE | 2017-05-22 20:05 | RADRPT ---
EXAM DATE/TIME: 05/22/2017 19:41 [place] COMPARISON: CHEST SINGLE AP, May 10, 2017, 19:37. INDICATIONS : Cough. MEDICAL HISTORY : Cardiovascular disease. Chronic obstructive pulmonary disease. SURGICAL HISTORY : Pacemaker. ENCOUNTER: Initial ACUITY: 1 day PAIN SCORE: 0/10 LOCATION: Bilateral chest FINDINGS: A single AP view of the chest was obtained and again demonstrates a left subclavian transvenous pacer in place. There is mild to moderate cardiomegaly with no evidence of pulmonary edema. There is new p atchy opacity in the right lung base. The left lung is clear. The bony structures are intact. There a re atherosclerotic changes in the aorta. CONCLUSION: 1. New patchy opacity the right lung base with concern for pneumonia. 2. Cardiomegaly with no evidence of pulmonary edema. Orlando Chavez MD on May 22, 2017 at 20:02 Board Certified Radiologist. This report was verified electronically.
[2017-05-22 20:11] VITALS: BP 108/51; PULSE 82; RESP 20; TEMP 97.9; O2SAT 94
[2017-05-22] MEDS ORDERED: VANCOMYCIN INJ 1,000 MG in SODIUM CHLOR 0.9% 250 ML INJ 250 ML IV ONE (20:15)
[2017-05-22] MEDS ORDERED: CEFEPIME INJ 1,000 MG in SODIUM CHLORIDE 0.9% INJ 100 ML IV ONE (20:15)
[2017-05-22 20:40] LABS: AUTOMATED NEUTROPHIL # 36.3 TH/MM3 (1.8-7.7); BASOPHIL # 0.1 TH/MM3 (0-0.2); BASOPHIL % 0.3 % (0.0-2.0); HEMATOCRIT 30.4 % (35.0-46.0); HEMOGLOBIN 10.1 GM/DL (11.6-15.3); LYMPH % 3.5 % (9.0-44.0); LYMPHOCYTE # 1.4 TH/MM3 (1.0-4.8); MEAN CELL VOLUME 88.9 FL (80.0-100.0); MEAN CORPUSCULAR HEMOGLOBIN 29.5 PG (27.0-34.0); MEAN CORPUSCULAR HGB CONC 33.2 % (32.0-36.0); MEAN PLATELET VOLUME 8.4 FL (7.0-11.0); MONOCYTE # 2.4 TH/MM3 (0-0.9); NEUT % 90.2 % (16.0-70.0); PLATELET COUNT 195 TH/MM3 (150-450); RED BLOOD COUNT 3.42 MIL/MM3 (4.00-5.30); RED CELL DISTRIBUTION WIDTH 14.1 % (11.6-17.2); WHITE BLOOD COUNT 40.3 TH/MM3 (4.0-11.0)
[2017-05-22 20:55] LABS: INTERNATIONAL NORMALIZED RATIO 1.1 RATIO; PROTHROMBIN TIME - PATIENT 11.4 SEC (9.8-11.6)
--- NOTE | 2017-05-22 21:02 | PD ---
HPI Chief Complaint: Respiratory Symptoms Time Seen by Provider: 18:53 Travel History International Travel<30 days: No Contact w/Intl Traveler<30days: No Traveled to known affect area: No History of Present Illness HPI 87 yo female presents to the ED for evaluation of cough and shortness of breath. Per patient she was seen here and released from the hospital recently before crispness. She was doing okay but she has not felt better and she actually has worsened for the past couple of days. She's also been throwing up because of the cough. She has any chest pain but feels very short of breath with exertion as well as with laying down. She has a significant history of COPD, CHF and chronic kidney disease. She was released with inhalers as well as steroids. At the time she was admitted for COPD exacerbation. Possible CHF as well. Patient states that the cough has not improved and she is having some fevers. She denies any sick contacts. No recent travel. Multiple allergies to different medications. Denies any chest pain but states feeling very short of breath with any movement. Does not use oxygen at home. PFSH Past Medical History Anemia: Yes Arthritis: Yes Atrial Fibrillation: Yes Blood Disorders: No Cancer: No Cardiovascular Problems: Yes (chf) Congestive Heart Failure: Yes COPD: Yes Diabetes: Yes Patient Takes Glucophage: No Diminished Hearing: Yes ([place]) Endocrine: Yes Genitourinary: No Hepatitis: No Hiatal Hernia: No Hypertension: Yes Immune Disorder: No Implanted Vascular Access Dvce: No Medical other: Yes (ANEMIA,ARTHRITIS,HYPERLIPIDEMIA,) Musculoskeletal: Yes (mild arthritis in the hands and fingers) Neurologic: No Psychiatric: No Reproductive: No Respiratory: No Immunizations Current: Yes Thyroid Disease: Yes Tetanus Vaccination: Unknown Influenza Vaccination: No ?: Not : 12 Para: 11 Miscarriage: 1 Past Surgical History Abdominal Surgery: Yes (partial sigmoid removal 2005) AICD: No Arteriovenous Shunt: Yes (RIGHT ARM) Body Medical Devices: PACEMAKER Cardiac Surgery: Yes (pacemaker) Ear Surgery: No Endocrine Surgery: No Eye Surgery: Yes (BILAT eye cataract removal) Genitourinary Surgery: No Gynecologic Surgery: Yes (hysterectomy) Hysterectomy: Yes Joint Replacement: No Neurologic Surgery: No Oral Surgery: Yes ( ) Pacemaker: Yes Thoracic Surgery: No Tonsillectomy: Yes Other Surgery: Yes ( ) Social History Alcohol Use: No Tobacco Use: No Substance Use: No Allergies-Medications (Allergen,Severity, Reaction): Coded Allergies: grass pollen (Unverified Allergy, Severe, CONGESTION, 05/22/17) animal dander (Unverified Allergy, Intermediate, NASAL, 05/22/17) NASAL CONGESTION grapefruit (Unverified Allergy, Unknown, due to drug interaction, 05/22/17 ) metformin (Unverified Adverse Reaction, Severe, Diarrhea, 05/22/17) acetaminophen (Unverified Adverse Reaction, Mild, N/V, 05/22/17) hydrocodone (Unverified Adverse Reaction, Mild, N/V, 05/22/17) propoxyphene (Unverified Adverse Reaction, Mild, N/V, 05/22/17) *MDRO Multi-Drug Resistant Organism (Verified Adverse Reaction, Unknown, 05/22/17) 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 Uncoded Allergies: ALL NARCOTICS (Adverse Reaction, Severe, Nausea/Vomiting, 08/24/06) Reported Meds & Prescriptions Reported Meds & Active Scripts Active Nebulizer 1 Mis Mis Ea .ROUTE DIRECTED Prednisone 10 Mg Tab 10 Mg PO DIRECTED take 30 mg twice a day by mouth for five days, then take 20 mg twice a day by mouth for five days, then take 10 mg twice a day by mouth for five days, then take 10 mg once a day by mouth for fuve days, then stop Symbicort Inh (Budesonide/Formoterol Fumarate) 160-4.5 Mcg/Act Aero 1 Puff INH Q12HR Albuterol Neb (Albuterol Sulfate) 2.5 Mg/3 Ml Neb 2.5 Mg NEB Q4HR NEB PRN Ipratropium Neb (Ipratropium Ider) 0.5 Mg/2.5 Ml Amp 0.5 Mg NEB Q4HR NEB PRN Oxygen (O2) Device Liter JAMES.CANULA CONTINUOUS Oxygen Concentrator Portable Gaseous 2 L/min via Nasal Canula Continuous For 1 month Oxygen tank (Oxygen) 1 Ea Tank Liter JAMES.CANULA CONTINUOUS Oxygen Concentrator Portable Gaseous 2 L/min via Nasal Cannula Continuous For 1 month Reported Levothyroxine (Levothyroxine Sodium) 100 Mcg Tab 100 Mcg PO DAILY Lasix (Furosemide) 80 Mg Tab 80 Mg PO DAILY Aspirin 325 Mg Tab 325 Mg PO DAILY Sodium Bicarbonate 650 Mg Tab 650 Mg PO TIDPC Hydroxyzine HCl 25 Mg Tab 25 Mg PO HS Losartan (Losartan Potassium) 100 Mg Tab 100 Mg PO DAILY Novolog Inj (Insulin Aspart) 1,000 Unit/10 Ml Vial 3-5 Units SQ DAILY Max dose at bedtime:( )units; sugars less than 70,(0)units; sugars 150-199,(1) unit; sugars 200-249,(3) units; sugars 250-299,(5) units; sugars 300-349,(7) units; sugars greater than 349,(9) units Review of Systems Except as stated in HPI: all other systems reviewed are Neg Physical Exam Narrative GENERAL: Well-nourished, well-developed patient in no apparent distress. SKIN: Warm and dry. HEAD: Atraumatic. Normocephalic. EYES: Pupils equal and round reactive to light and accommodation. No scleral icterus. No injection or drainage. ENT: No nasal bleeding or discharge. Mucous membranes pink and moist. TMs are clear with no sign of infection or perforation. No mastoid tenderness. Ear canals are intact bilaterally. No lymphadenopathy. Nostril mucosa is red and moist with clear mucus noted. No sinus tenderness to palpation noted. Tonsils are not enlarged or swollen. No ulvua Deviation. Tongue is midline. NECK: Trachea midline. No JVD. No meningeal signs noted CARDIOVASCULAR: Regular rate and rhythm. RESPIRATORY: No accessory muscle use. Wheezings hurting all over lung rosa. Breath sounds equal bilaterally. GASTROINTESTINAL: Abdomen soft, non-tender, nondistended. Hepatic and splenic margins not palpable. MUSCULOSKELETAL: Extremities without clubbing, cyanosis, or edema. No obvious deformities. NEUROLOGICAL: Awake and alert. No obvious cranial nerve deficits. Motor grossly within normal limits. Five out of 5 muscle strength in the arms and legs. Normal speech. PSYCHIATRIC: Appropriate mood and affect; insight and judgment normal. Data Data Last Documented VS Vital Signs Date Time Temp Pulse Resp B/P (MAP) Pulse Ox O2 Delivery O2 Flow Rate FiO2 05/22/17 20:11 97.9 82 20 108/51 (70) 94 Nasal Cannula 4.00 Orders Orders Electrocardiogram (05/22/17 18:56) Complete Blood Count With Diff (05/22/17 18:56) Comprehensive Metabolic Panel (05/22/17 18:56) Ckmb (Isoenzyme) Profile (12/29/17 18:56) Troponin I (05/22/17 18:56) B-Type Natriuretic Peptide (05/22/17 18:56) Prothrombin Time / Inr (Pt) (05/22/17 18:56) Act Partial Throm Time (Ptt) (05/22/17 18:56) Lipase (05/22/17 18:56) Magnesium (Mg) (05/22/17 18:56) Influenzae A/B Antigen (05/22/17 18:56) Chest, Single Ap (05/22/17 18:56) Iv Access Insert/Monitor (05/22/17 18:56) Ecg Monitoring (05/22/17 18:56) Oxygen Administration (05/22/17 18:56) Oximetry (05/22/17 18:56) Sodium Chloride 0.9% Flush (Ns Flush) (05/22/17 19:00) Ondansetron Inj (Zofran Inj) (05/22/17 19:00) Methylprednisolone So Succ Inj (Solumedr (05/22/17 19:00) Albuterol-Ipratropium Neb (Duoneb Neb) (05/22/17 19:00) Lactic Acid Sepsis Protocol (05/22/17 19:02) Blood Culture (05/22/17 19:02) Cefepime Inj (Maxipime Inj) (05/22/17 20:15) Vancomycin Inj (Vancomycin Inj) (05/22/17 20:15) Potassium Chloride (Kcl) (05/22/17 21:15) Admit Order (Ed Use Only) (05/22/17 21:29) Labs Laboratory Tests Test 05/22/17 20:26 White Blood Count 40.3 TH/MM3 Red Blood Count 3.42 MIL/MM3 Hemoglobin 10.1 GM/DL Hematocrit 30.4 % Mean Corpuscular Volume 88.9 FL Mean Corpuscular Hemoglobin 29.5 PG Mean Corpuscular Hemoglobin Concent 33.2 % Red Cell Distribution Width 14.1 % Platelet Count 195 TH/MM3 Mean Platelet Volume 8.4 FL Neutrophils (%) (Auto) 90.2 % Lymphocytes (%) (Auto) 3.5 % Monocytes (%) (Auto) 6.0 % Eosinophils (%) (Auto) 0.0 % Basophils (%) (Auto) 0.3 % Neutrophils # (Auto) 36.3 TH/MM3 Lymphocytes # (Auto) 1.4 TH/MM3 Monocytes # (Auto) 2.4 TH/MM3 Eosinophils # (Auto) 0.0 TH/MM3 Basophils # (Auto) 0.1 TH/MM3 CBC Comment AUTO DIFF Differential Total Cells Counted 100 Neutrophils % (Manual) 92 % Band Neutrophils % 2 % Lymphocytes % 3 % Neutrophils # (Manual) 39.1 TH/MM3 Metamyelocytes 3 % Differential Comment FINAL DIFF MANUAL Prothrombin Time 11.4 SEC Prothromb Time International Ratio 1.1 RATIO Activated Partial Thromboplast Time 21.7 SEC Blood Urea Nitrogen 71 MG/DL Creatinine 3.19 MG/DL Random Glucose 170 MG/DL Total Protein 6.6 GM/DL Albumin 2.8 GM/DL Calcium Level 8.3 MG/DL Magnesium Level 1.3 MG/DL Alkaline Phosphatase 122 U/L Aspartate Amino Transf (AST/SGOT) 10 U/L Alanine Aminotransferase (ALT/SGPT) 15 U/L Total Bilirubin 0.7 MG/DL Sodium Level 135 MEQ/L Potassium Level 3.0 MEQ/L Chloride Level 97 MEQ/L Carbon Dioxide Level 26.9 MEQ/L Anion Gap 11 MEQ/L Estimat Glomerular Filtration Rate 14 ML/MIN Lactic Acid Level 1.7 mmol/L Total Creatine Kinase 50 U/L Troponin I 0.09 NG/ML Lipase 108 U/L [facility] Medical Decision Making Medical Screen Exam Complete: Yes Emergency Medical Condition: Yes Medical Record Reviewed: Yes Interpretation(s) Last Impressions Chest X-Ray 05/22/17 1856 Signed Impressions: Service Date/Time: Monday, May 22, 2017 19:41 - CONCLUSION: 1. New patchy opacity the right lung base with concern for pneumonia. 2. Cardiomegaly with no evidence of pulmonary edema. Orlando Chavez MD CBC & BMP Diagram 05/22/17 20:26 Total Protein 6.6, Albumin 2.8 L, Calcium Level 8.3 L, Magnesium Level 1.3 L, Alkaline Phosphatase 122 H, Aspartate Amino Transf (AST/SGOT) 10 L, Alanine Aminotransferase (ALT/SGPT) 15, Total Bilirubin 0.7 troponin slightly elevated at 0.09 Differential Diagnosis COPD exacerbation versus CHF exacerbation versus pneumonia versus leukocytosis Narrative Course 87-year-old female that presents to the ED for evaluation of shortness of breath. Patient was properly examined and was found to have signs and symptoms consistent with shortness of breath. Platelet this time but definite concerning for pneumonia or infectious etiology. Labs and imaging were done. Labs and imaging consistent with what appears to be pneumonia with leukocytosis. Unclear the this is related to the steroids of the patient has not received any steroids here. She does have a significant elevation of the WBCs. Because of patient's recent admission concerning for hospital-acquired pneumonia therefore she was started on cefepime and vancomycin at my attending Dr. Hassan's recommendations. He evaluated the patient with me as well. Patient was told me for admission. Patient will be admitted for this. Case discussed with Dr. Cruz who agrees to admission. Diagnosis Primary Impression: Pneumonia Qualified Codes: J18.1 - Lobar pneumonia, unspecified organism Additional Impressions: Leukocytosis Qualified Codes: D72.829 - Elevated white blood cell count, unspecified COPD (chronic obstructive pulmonary disease) Qualified Codes: J44.9 - Chronic obstructive pulmonary disease, unspecified Admitting Information Admitting Physician Requests: Admit Quan Coello May 22, 2017 21:02
[2017-05-22 21:04] LABS: ALBUMIN 2.8 GM/DL (3.4-5.0); AST (GOT) 10 U/L (15-37); BICARBONATE 26.9 MEQ/L (21.0-32.0); BLOOD UREA NITROGEN 71 MG/DL (7-18); CALCIUM 8.3 MG/DL (8.5-10.1); CHLORIDE 97 MEQ/L (98-107); CREATININE 3.19 MG/DL (0.50-1.00); GLOMERULAR FILTRATION RATE 14 ML/MIN (>89); GLUCOSE,RANDOM 170 MG/DL (74-106); LIPASE 108 U/L (73-393); MAGNESIUM 1.3 MG/DL (1.5-2.5); SODIUM (NA) 135 MEQ/L (136-145)
[2017-05-22 21:05] LABS: ALT (GPT) 15 U/L (10-53)
[2017-05-22 21:09] LABS: ALKALINE PHOSPHATASE 122 U/L (45-117); TOTAL BILIRUBIN ADULT 0.7 MG/DL (0.2-1.0); TOTAL PROTEIN 6.6 GM/DL (6.4-8.2); TROPONIN I 0.09 NG/ML (0.02-0.05)
[2017-05-22] MEDS ORDERED: POTASSIUM CHLORIDE 20 MEQ CONTROLLED RELEASE TAB PO ONE (21:15)
[2017-05-22 21:25] LABS: BANDS 2 % (0-6); LYMPHOCYTES 3 % (9-44); METAMYELOCYTES 3 % (0-1); NEUTROPHIL # MANUAL DIFF 39.1 TH/MM3 (1.8-7.7); POLYS (SEG NEUTROPHILS) 92 % (16-70)
[2017-05-22] MEDS ORDERED: ONDANSETRON HCL 4 MG/2 ML VIAL IVP PRN (21:45)
[2017-05-22] MEDS ORDERED: CEFEPIME INJ 1,000 MG in SODIUM CHLORIDE 0.9% INJ 100 ML IV SCH (21:45)
[2017-05-22] MEDS ORDERED: RESP: ALBUTEROL 2.5 MG/3 ML NEB (PRN) NEB (21:45)
[2017-05-22] MEDS ORDERED: BISACODYL 10 MG SUPP RECTAL PRN (21:45)
[2017-05-22] MEDS ORDERED: Vancomycin Consult Pharmacy 1 EA OTHER SCH (21:45)
[2017-05-22] MEDS ORDERED: RESP: IPRATROPIUM 0.5 MG/2.5 ML NEB NEB PRN (21:45)
[2017-05-22] MEDS ORDERED: SENNOSIDES 8.6 MG TAB PO PRN (21:45)
[2017-05-22] MEDS ORDERED: NALOXONE HCL 0.4 MG/ML AMP IV PUSH PRN (21:45)
[2017-05-22] MEDS ORDERED: ACETAMINOPHEN 325 MG TAB PO PRN (21:45)
[2017-05-22] MEDS ORDERED: MAGNESIUM HYDROXIDE SUSP 30 ML CUP PO PRN (21:45)
[2017-05-22] MEDS ORDERED: SODIUM CHLORIDE 0.9% FLUSH 10 ML FLUSH IV FLUSH PRN (21:45)
[2017-05-22] MEDS ORDERED: LACTULOSE SYRUP 20 GM/30 ML CUP PO PRN (21:45)
[2017-05-22 21:46] VITALS: BP 114/53; PULSE 90; RESP 18; O2SAT 100
--- NOTE | 2017-05-22 21:56 | HHI.HP ---
HPI Service [facility] Hospitalists Primary Care Physician Nissa Ko MD Admission Diagnosis acute right sided pneumonia, HAP?, leukocytosis, COPD Chief Complaint: increasing SOB over last 2 days Travel History International Travel<30 Days: No Contact w/Intl Traveler <30 Da: No Traveled to Known Affected Are: No History of Present Illness 87 yo female presents to the ED for evaluation of cough and shortness of breath. Per patient she was just in hospital with copd exacerbation and was sent home on prednisone and oxygen. She was doing okay but she has not felt better and she actually has worsened for the past couple of days. She's also been throwing up because of the cough. She has any chest pain but feels very short of breath with exertion as well as with laying down. She has a significant history of COPD, CHF and chronic kidney disease. She was told would be better to go to rehab but refused. Patient states that the cough has not improved and she is having some fevers. She denies any sick contacts. No recent travel. Multiple allergies to different medications. Denies any chest pain but states feeling very short of breath with any movement. Does use oxygen at home. In er found to have chest xray consistent with pneumonia and significant leukocytosis . Started on IV antibiotics . Review of Systems Constitutional: COMPLAINS OF: Fatigue, Fever Respiratory: COMPLAINS OF: Cough, Shortness of breath Past Family Social History Past Medical History anemia,copd,chf,djd,a fib,dm,htn,increase lipid thyroid,ckd stage 4 Past Surgical History partial sigmoid surgery for ca colon rt arm shunt thrombosed and never used followed by renal,cataracts,tonsil,hysterectomy pacemaker Reported Medications Nebulizer 1 Mis Mis Ea .ROUTE DIRECTED Prednisone 10 Mg Tab 10 Mg PO DIRECTED take 30 mg twice a day by mouth for five days, then take 20 mg twice a day by mouth for five days, then take 10 mg twice a day by mouth for five days, then take 10 mg once a day by mouth for fuve days, then stop Symbicort Inh (Budesonide/Formoterol Fumarate) 160-4.5 Mcg/Act Aero 1 Puff INH Q12HR Albuterol Neb (Albuterol Sulfate) 2.5 Mg/3 Ml Neb 2.5 Mg NEB Q4HR NEB PRN Ipratropium Neb (Ipratropium Ulysses) 0.5 Mg/2.5 Ml Amp 0.5 Mg NEB Q4HR NEB PRN Oxygen (O2) Device Liter JAMES.CANULA CONTINUOUS Oxygen Concentrator Portable Gaseous 2 L/min via Nasal Canula Continuous For 1 month Oxygen tank (Oxygen) 1 Ea Tank Liter JAMES.CANULA CONTINUOUS Oxygen Concentrator Portable Gaseous 2 L/min via Nasal Cannula Continuous For 1 month Reported Levothyroxine (Levothyroxine Sodium) 100 Mcg Tab 100 Mcg PO DAILY Lasix (Furosemide) 80 Mg Tab 80 Mg PO DAILY Aspirin 325 Mg Tab 325 Mg PO DAILY Sodium Bicarbonate 650 Mg Tab 650 Mg PO TIDPC Hydroxyzine HCl 25 Mg Tab 25 Mg PO HS Losartan (Losartan Potassium) 100 Mg Tab 100 Mg PO DAILY Novolog Inj (Insulin Aspart) 1,000 Unit/10 Ml Vial 3-5 Units SQ DAILY Max dose at bedtime:( )units; sugars less than 70,(0)units; sugars 150-199,(1) unit; sugars 200-249,(3) units; sugars 250-299,(5) units; sugars 300-349,(7) units; sugars greater than 349,(9) units Allergies: Coded Allergies: grass pollen (Unverified Allergy, Severe, CONGESTION, 05/22/17) animal dander (Unverified Allergy, Intermediate, NASAL, 05/22/17) NASAL CONGESTION grapefruit (Unverified Allergy, Unknown, due to drug interaction, 05/22/17 ) metformin (Unverified Adverse Reaction, Severe, Diarrhea, 05/22/17) acetaminophen (Unverified Adverse Reaction, Mild, N/V, 05/22/17) hydrocodone (Unverified Adverse Reaction, Mild, N/V, 05/22/17) propoxyphene (Unverified Adverse Reaction, Mild, N/V, 05/22/17) *MDRO Multi-Drug Resistant Organism (Verified Adverse Reaction, Unknown, 05/22/17) 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 Uncoded Allergies: ALL NARCOTICS (Adverse Reaction, Severe, Nausea/Vomiting, 08/24/06) Social History former smoker Physical Exam Vital Signs Vital Signs Date Time Temp Pulse Resp B/P (MAP) Pulse Ox O2 Delivery O2 Flow Rate FiO2 05/22/17 20:11 97.9 82 20 108/51 (70) 94 Nasal Cannula 4.00 05/22/17 19:43 94 Nasal Cannula 1.00 05/22/17 19:12 94 Nasal Cannula 4.00 05/22/17 18:44 2.00 05/22/17 18:34 99.7 81 25 114/74 (87) 92 Physical Exam GENERAL: This is a well-nourished, well-developed patient, in no apparent distress. SKIN: No rashes, ecchymoses or lesions. Cool and dry. HEAD: Atraumatic. Normocephalic. No temporal or scalp tenderness. EYES: Pupils equal round and reactive. Extraocular motions intact. No scleral icterus. No injection or drainage. ENT: Nose without bleeding, purulent drainage or septal hematoma. Throat without erythema, tonsillar hypertrophy or exudate. Uvula midline. Airway patent. NECK: Trachea midline. No JVD or lymphadenopathy. Supple, nontender, no meningeal signs. CARDIOVASCULAR: Regular rate and rhythm without murmurs, gallops, or rubs. RESPIRATORY: Bilateral decrease breath sounds bilateral rhonchi GASTROINTESTINAL: Abdomen soft, non-tender, nondistended. No hepato-splenomegaly , or palpable masses. No guarding. MUSCULOSKELETAL: Extremities without clubbing, cyanosis, or edema. No joint tenderness, effusion, or edema noted. No calf tenderness. Negative Homans sign bilaterally. NEUROLOGICAL: Awake and alert. Cranial nerves II through XII intact. Motor and sensory grossly within normal limits. Five out of 5 muscle strength in all muscle groups. Normal speech. Laboratory Laboratory Tests Test 05/22/17 20:26 White Blood Count 40.3 Red Blood Count 3.42 Hemoglobin 10.1 Hematocrit 30.4 Mean Corpuscular Volume 88.9 Mean Corpuscular Hemoglobin 29.5 Mean Corpuscular Hemoglobin Concent 33.2 Red Cell Distribution Width 14.1 Platelet Count 195 Mean Platelet Volume 8.4 Neutrophils (%) (Auto) 90.2 Lymphocytes (%) (Auto) 3.5 Monocytes (%) (Auto) 6.0 Eosinophils (%) (Auto) 0.0 Basophils (%) (Auto) 0.3 Neutrophils # (Auto) 36.3 Lymphocytes # (Auto) 1.4 Monocytes # (Auto) 2.4 Eosinophils # (Auto) 0.0 Basophils # (Auto) 0.1 CBC Comment AUTO DIFF Differential Total Cells Counted 100 Neutrophils % (Manual) 92 Band Neutrophils % 2 Lymphocytes % 3 Neutrophils # (Manual) 39.1 Metamyelocytes 3 Differential Comment FINAL DIFF MANUAL Prothrombin Time 11.4 Prothromb Time International Ratio 1.1 Activated Partial Thromboplast Time 21.7 Blood Urea Nitrogen 71 Creatinine 3.19 Random Glucose 170 Total Protein 6.6 Albumin 2.8 Calcium Level 8.3 Magnesium Level 1.3 Alkaline Phosphatase 122 Aspartate Amino Transf (AST/SGOT) 10 Alanine Aminotransferase (ALT/SGPT) 15 Total Bilirubin 0.7 Sodium Level 135 Potassium Level 3.0 Chloride Level 97 Carbon Dioxide Level 26.9 Anion Gap 11 Estimat Glomerular Filtration Rate 14 Lactic Acid Level 1.7 Total Creatine Kinase 50 Troponin I 0.09 B-Type Natriuretic Peptide 296 Lipase 108 Date/Time Source Procedure Growth Status 05/22/17 20:26 Blood Peripheral Aerobic Blood Culture Pending Received 05/22/17 20:26 Blood Peripheral Anaerobic Blood Culture Pending Received 05/22/17 20:30 Nasal Washing Influenza Types A,B Antigen (TIGIST) - Final NEGATIVE FOR FLU A AND B ANTIGEN.... Complete Result Diagram: 05/22/17202505/22/172025 Imaging Last 24 hours Impressions Chest X-Ray 05/22/171855 Signed Impressions: Service Date/Time: Monday, May 22, 2017 19:41 - CONCLUSION: 1. New patchy opacity the right lung base with concern for pneumonia. 2. Cardiomegaly with no evidence of pulmonary edema. Orlando Chavez MD Course in er started on cefipine and vancomycin Caprini VTE Risk Assessment Caprini VTE Risk Assessment: Mod/High Risk (score >= 2) Caprini Risk Assessment Model Point Value = 1 Point Value = 2 Point Value = 3 Point Value = 5 Age 41-60 Minor surgery BMI > 25 kg/m2 Swollen legs Varicose veins or History of unexplained or recurrent spontaneous Oral contraceptives or hormone replacement Sepsis (< 1 month) Serious lung disease, including pneumonia (< 1 month) Abnormal pulmonary function Acute myocardial infarction Congestive heart failure (< 1 month) History of inflammatory bowel disease Medical patient at bed rest Age 61-74 Arthroscopic surgery Major open surgery (> 45 min) Laparoscopic surgery (> 45 min) Malignancy Confined to bed (> 72 hours) Immobilizing plaster cast Central venous access Age >= 75 History of VTE Family history of VTE Factor V Leiden Prothrombin [id number] Lupus anticoagulant Anticardiolipin antibodies Elevated serum homocysteine Heparin-induced thrombocytopenia Other congenital or acquired thrombophilia Stroke (< 1 month) Elective arthroplasty Hip, pelvis, or leg fracture Acute spinal cord injury (< 1 month) Prophylaxis Regimen Total Risk Factor Score Risk Level Prophylaxis Regimen 0-1 Low Early ambulation 2 Moderate Order ONE of the following: *Sequential Compression Device (SCD) *Heparin 5000 units SQ BID 3-4 Higher Order ONE of the following medications: *Heparin 5000 units SQ TID *Enoxaparin/Lovenox 40 mg SQ daily (WT < 150 kg, CrCl > 30 mL/min) *Enoxaparin/Lovenox 30 mg SQ daily (WT < 150 kg, CrCl > 10-29 mL/min) *Enoxaparin/Lovenox 30 mg SQ BID (WT < 150 kg, CrCl > 30 mL/min) AND/OR *Sequential Compression Device (SCD) 5 or more Highest Order ONE of the following medications: *Heparin 5000 units SQ TID (Preferred with Epidurals) *Enoxaparin/Lovenox 40 mg SQ daily (WT < 150 kg, CrCl > 30 mL/min) *Enoxaparin/Lovenox 30 mg SQ daily (WT < 150 kg, CrCl > 10-29 mL/min) *Enoxaparin/Lovenox 30 mg SQ BID (WT < 150 kg, CrCl > 30 mL/min) AND *Sequential Compression Device (SCD) Assessment and Plan Problem List: (1) Pneumonia ICD Codes: J18.9 - Pneumonia, unspecified organism Status: Acute Plan: start cefipine and vancomycin for now follow labs and chest xray (2) Leukocytosis ICD Codes: D72.829 - Leukocytosis Status: Acute Plan: was on steroids which can cause some of the elevation in WBC count will follow (3) COPD (chronic obstructive pulmonary disease) ICD Codes: J44.9 - Chronic obstructive pulmonary disease, unspecified Status: Acute Plan: continue nebulizer and oxygen and will start some solmedrol (4) CKD (chronic kidney disease) stage 4, GFR 15-29 ml/min ICD Codes: N18.4 - Chronic kidney disease, stage IV (severe) Status: Chronic Plan: will follow Assessment and Plan further plan as case develops Code Status full Discussed Condition With patient Physician Certification 2 Midnight Certification Type: Admission for Inpatient Services Order for Inpatient Services The services are ordered in accordance with Medicare regulations or non- Medicare payer requirements, as applicable. In the case of services not specified as inpatient-only, they are appropriately provided as inpatient services in accordance with the 2-midnight benchmark. Estimated LOS (days): 3 3 days is the estimated time the patient will need to remain in the hospital, assuming treatment plan goals are met and no additional complications. Post-Hospital Plan: Not yet determined Problem Qualifiers (1) Pneumonia: Qualified Codes: J18.1 - Lobar pneumonia, unspecified organism (2) Leukocytosis: Qualified Codes: D72.829 - Elevated white blood cell count, unspecified (3) COPD (chronic obstructive pulmonary disease): Qualified Codes: J44.9 - Chronic obstructive pulmonary disease, unspecified Ruddy Cruz MD May 22, 2017 21:56
[2017-05-22 23:00] VITALS: BP 130/61; PULSE 91; RESP 20; TEMP 98.6; O2SAT 99
[2017-05-23] VITALS (7 sets, daily range): BP systolic 128–142; BP diastolic 58–64; PULSE 78–111; RESP 18–20; TEMP 96–97.8; O2SAT 94–100
[2017-05-23] MEDS: LEVOTHYROXINE SODIUM 100 MCG TAB PO SCH (05:22)
[2017-05-23 06:53] LABS: AUTOMATED NEUTROPHIL # 46.1 TH/MM3 (1.8-7.7); BASOPHIL % 0.1 % (0.0-2.0); HEMATOCRIT 30.2 % (35.0-46.0); HEMOGLOBIN 9.6 GM/DL (11.6-15.3); LYMPH % 1.3 % (9.0-44.0); LYMPHOCYTE # 0.6 TH/MM3 (1.0-4.8); MEAN CELL VOLUME 90.3 FL (80.0-100.0); MEAN CORPUSCULAR HEMOGLOBIN 28.8 PG (27.0-34.0); MEAN CORPUSCULAR HGB CONC 31.9 % (32.0-36.0); MEAN PLATELET VOLUME 9.1 FL (7.0-11.0); MONO % 2.9 % (0.0-8.0); MONOCYTE # 1.4 TH/MM3 (0-0.9); NEUT % 95.7 % (16.0-70.0); PLATELET COUNT 163 TH/MM3 (150-450); RED BLOOD COUNT 3.34 MIL/MM3 (4.00-5.30); RED CELL DISTRIBUTION WIDTH 14.4 % (11.6-17.2); WHITE BLOOD COUNT 48.2 TH/MM3 (4.0-11.0)
[2017-05-23 07:14] LABS: ALBUMIN 2.5 GM/DL (3.4-5.0); ALKALINE PHOSPHATASE 112 U/L (45-117); ALT (GPT) 14 U/L (10-53); AST (GOT) 12 U/L (15-37); BICARBONATE 25.1 MEQ/L (21.0-32.0); BLOOD UREA NITROGEN 74 MG/DL (7-18); CALCIUM 8.5 MG/DL (8.5-10.1); CHLORIDE 97 MEQ/L (98-107); CREATININE 3.41 MG/DL (0.50-1.00); GLOMERULAR FILTRATION RATE 13 ML/MIN (>89); GLUCOSE,RANDOM 316 MG/DL (74-106); SODIUM (NA) 135 MEQ/L (136-145); TOTAL BILIRUBIN ADULT 0.6 MG/DL (0.2-1.0); TOTAL PROTEIN 6.5 GM/DL (6.4-8.2)
[2017-05-23] MEDS ORDERED: FUROSEMIDE 80 MG TAB PO SCH (09:00)
[2017-05-23] MEDS ORDERED: RESP: ALBUTEROL 2.5 MG/IPRATROPIUM 0.5 MG NEB (PRN) NEB (09:15)
[2017-05-23] MEDS: RESP: ALBUTEROL 2.5 MG/IPRATROPIUM 0.5 MG NEB (SCH) NEB ×4 (09:15→20:48)
--- NOTE | 2017-05-23 09:17 | HHI.PR ---
Subjective Remarks Pt reports that she slept well last night and is overall feeling better this morning She reports that after her discharge on 05/14 she continued to have significant cough and some post-tussive vomiting. She was taking Prednisone and the breathing treatments as prescribed. She denies any diarrhea She reportedly developed a fever of 103 yesterday which prompted her to come to the ED for further evaluation Her WBC count was 40 at admission, predominantly neutrophils but no elevated bands. CXR in the ED noted a new patchy opacity in the right lung base with concern for pneumonia. Pt was started on IV Abx at admission. She denies any diarrhea, abdominal pain, chest pain or palpitations. Objective Vitals Vital Signs Date Time Temp Pulse Resp B/P (MAP) Pulse Ox O2 Delivery O2 Flow Rate FiO2 05/23/17 08:00 97.8 111 20 128/63 (84) 97 05/23/17 04:00 97.8 93 20 142/64 (90) 97 05/22/17 23:12 05/22/17 23:00 98.6 91 20 130/61 (84) 99 05/22/17 21:46 90 18 114/53 (73) 100 Nasal Cannula 4.00 05/22/17 20:11 97.9 82 20 108/51 (70) 94 Nasal Cannula 4.00 05/22/17 19:43 94 Nasal Cannula 1.00 05/22/17 19:12 94 Nasal Cannula 4.00 05/22/17 18:44 2.00 05/22/17 18:34 99.7 81 25 114/74 (87) 92 Result Diagram: 05/23/17 0526 05/23/17 0526 Other Results Laboratory Tests Test 05/22/17 20:26 05/23/17 05:26 05/23/17 14:05 White Blood Count 40.3 TH/MM3 48.2 TH/MM3 Red Blood Count 3.42 MIL/MM3 3.34 MIL/MM3 Hemoglobin 10.1 GM/DL 9.6 GM/DL Hematocrit 30.4 % 30.2 % Mean Corpuscular Volume 88.9 FL 90.3 FL Mean Corpuscular Hemoglobin 29.5 PG 28.8 PG Mean Corpuscular Hemoglobin Concent 33.2 % 31.9 % Red Cell Distribution Width 14.1 % 14.4 % Platelet Count 195 TH/MM3 163 TH/MM3 Mean Platelet Volume 8.4 FL 9.1 FL Neutrophils (%) (Auto) 90.2 % 95.7 % Lymphocytes (%) (Auto) 3.5 % 1.3 % Monocytes (%) (Auto) 6.0 % 2.9 % Eosinophils (%) (Auto) 0.0 % 0.0 % Basophils (%) (Auto) 0.3 % 0.1 % Neutrophils # (Auto) 36.3 TH/MM3 46.1 TH/MM3 Lymphocytes # (Auto) 1.4 TH/MM3 0.6 TH/MM3 Monocytes # (Auto) 2.4 TH/MM3 1.4 TH/MM3 Eosinophils # (Auto) 0.0 TH/MM3 0.0 TH/MM3 Basophils # (Auto) 0.1 TH/MM3 0.0 TH/MM3 CBC Comment AUTO DIFF AUTO DIFF Differential Total Cells Counted 100 100 Neutrophils % (Manual) 92 % 77 % Band Neutrophils % 2 % 16 % Lymphocytes % 3 % 2 % Neutrophils # (Manual) 39.1 TH/MM3 44.8 TH/MM3 Metamyelocytes 3 % Differential Comment FINAL DIFF MANUAL FINAL DIFF MANUAL Prothrombin Time 11.4 SEC Prothromb Time International Ratio 1.1 RATIO Activated Partial Thromboplast Time 21.7 SEC Blood Urea Nitrogen 71 MG/DL 74 MG/DL Creatinine 3.19 MG/DL 3.41 MG/DL Random Glucose 170 MG/DL 316 MG/DL Total Protein 6.6 GM/DL 6.5 GM/DL Albumin 2.8 GM/DL 2.5 GM/DL Calcium Level 8.3 MG/DL 8.5 MG/DL Magnesium Level 1.3 MG/DL Alkaline Phosphatase 122 U/L 112 U/L Aspartate Amino Transf (AST/SGOT) 10 U/L 12 U/L Alanine Aminotransferase (ALT/SGPT) 15 U/L 14 U/L Total Bilirubin 0.7 MG/DL 0.6 MG/DL Sodium Level 135 MEQ/L 135 MEQ/L Potassium Level 3.0 MEQ/L 4.4 MEQ/L Chloride Level 97 MEQ/L 97 MEQ/L Carbon Dioxide Level 26.9 MEQ/L 25.1 MEQ/L Anion Gap 11 MEQ/L 13 MEQ/L Estimat Glomerular Filtration Rate 14 ML/MIN 13 ML/MIN Lactic Acid Level 1.7 mmol/L Total Creatine Kinase 50 U/L Troponin I 0.09 NG/ML B-Type Natriuretic Peptide 296 PG/ML Lipase 108 U/L Monocytes % 5 % Platelet Estimate NORMAL Platelet Morphology Comment NORMAL Red Cell Morphology Comment NORMAL Imaging Last 24 hours Impressions Chest X-Ray 05/22/17 [id number] Signed Impressions: Service Date/Time: Monday, May 22, 2017 19:41 - CONCLUSION: 1. New patchy opacity the right lung base with concern for pneumonia. 2. Cardiomegaly with no evidence of pulmonary edema. Orlando Chavez MD Objective Remarks General: NAD, AAOx3 Chest: Wheezing throughout Cardiac: Regular Abd: +BS, soft ND/NT Ext: No significant edema A/P Problem List: (1) Pneumonia ICD Codes: J18.9 - Pneumonia, unspecified organism Status: Acute Plan: Pt is an 87 y/o female with atrial fibrillation s/p PPM in 02/2013, CHF, COPD/ restrictive lung disease who follows with Dr. Ricks, CKD stage [address] Carrillo, HTN, Hyperlipidemia, hypothyroidism, and diabetes. She was recently admitted to [facility] from 05/10-05/14 for COPD exacerbation. Pt was discharged on Prednisone taper, Symbicort, Duonebs , and supplemental O2. She refused SNF placement at discharge and was felt to be high risk for readmission at that time. Pneumonia Leukocytosis COPD exacerbation - Pt presented back to the ED at [facility] on 05/22/17 with complaints of fever ( Tmax 103), increased productive cough and SOB. - CXR in the ED noted new patchy opacity the right lung base with concern for pneumonia. Cardiomegaly with no evidence of pulmonary edema. - Her WBC count at admission was 40.3 - Pt was given Solu-Medrol, Duoneb treatment, Vancomycin and Cefepime in the ED - She was continued on Cefepime at admission. - Pt was was continued on Symbicort - Resume Duoneb treatments Q4H and Q2 H PRN - Repeat labs this morning with WBC count 48,000 but pt was given Solu- Medrol in the ED. She denies any diarrhea or abdominal pain. It unclear if this leukocytosis is related to the pneumonia plus the steroids or if there is some other occult infection. - Add Mucinex - Blood cultures are pending - Check sputum culture - Pt has been afebrile since admission - Monitor clinical status closely - Monitor labs - Pt currently on 3L of supplemental O2 via NC and overall feeling better. - Supportive care - DVT prophylaxis with SCDs Atrial fibrillation - Pt with hx of atrial fibrillation s/p PPM in 02/2013 - Cont. ASA - Cont. telemetry CKD (chronic kidney disease) stage 4, GFR 15-29 ml/min - Baseline GFR 14 -16 - Labs at admission are slightly worse than baseline but pt reports that she was not eating or drinking well for a few days prior to admission, so may be related to some dehydration. - Encourage oral intake - Monitor labs closely - Pt follows with Dr. Carrillo - She had a RUE AVF placed in 04/2015 which occluded and cannot be used Diabetes - NovoLog SSI - Accu checks - Anticipate steroid hyperglycemia HTN (hypertension) - Her home meds were resumed, Losartan - Clonidine and Vasotec PRN Hypothyroidism - Home meds resumed (2) Leukocytosis ICD Codes: D72.829 - Leukocytosis Status: Acute Plan: - See above (3) COPD (chronic obstructive pulmonary disease) ICD Codes: J44.9 - Chronic obstructive pulmonary disease, unspecified Status: Acute Plan: - See above (4) CKD (chronic kidney disease) stage 4, GFR 15-29 ml/min ICD Codes: N18.4 - Chronic kidney disease, stage IV (severe) Status: Chronic Plan: - See above Assessment and Plan Patient examined. Assessment and plan formulated with Maritza Wilson PA-C. I agree with the above. copd exacerbation and right lung pna wbc is very high? no diarrhea. pt looks stable and feels better. cont to observe and recheck cbc tomorrow. CT chest considered. Problem Qualifiers (1) Pneumonia: Qualified Codes: J18.1 - Lobar pneumonia, unspecified organism (2) Leukocytosis: Qualified Codes: D72.829 - Elevated white blood cell count, unspecified (3) COPD (chronic obstructive pulmonary disease): Qualified Codes: J44.9 - Chronic obstructive pulmonary disease, unspecified Maritza Wilson May 23, 2017 09:17 Jeff Linn MD May 23, 2017 13:15
[2017-05-23] MEDS: ASPIRIN 325 MG TAB PO SCH (09:24)
[2017-05-23] MEDS: LOSARTAN 50 MG TAB PO SCH (09:24)
[2017-05-23] MEDS: DOCUSATE SODIUM 50 MG/SENNA 8.6 MG TAB PO SCH ×2 (09:24→21:56)
[2017-05-23] MEDS: SODIUM BICARBONATE 650 MG TAB PO SCH ×3 (09:24→18:47)
[2017-05-23 09:44] LABS: BANDS 16 % (0-6); LYMPHOCYTES 2 % (9-44); MONOCYTES 5 % (0-8); NEUTROPHIL # MANUAL DIFF 44.8 TH/MM3 (1.8-7.7); POLYS (SEG NEUTROPHILS) 77 % (16-70)
[2017-05-23] MEDS: guaiFENesin E.R. 600 MG TAB PO SCH ×2 (10:02→21:56)
[2017-05-23] MEDS: INSULIN ASPART SUPPLEMENTAL SCALE SQ SCH ×3 (12:51→22:11)
[2017-05-23] MEDS: CEFEPIME 2000 MG/NS 100 ML IV SCH ×2 (12:56)
[2017-05-23] MEDS: SODIUM CHLORIDE 0.9% FLUSH 10 ML FLUSH IV FLUSH SCH ×2 (18:47→21:56)
[2017-05-23] MEDS: hydrOXYzine HCL 25 MG TAB PO SCH (21:56)
[2017-05-23] MEDS: BUDESONIDE-FORMOTEROL 160/4.5 MCG INHALER INH SCH (22:12)
[2017-05-24] VITALS (10 sets, daily range): BP systolic 124–158; BP diastolic 56–70; PULSE 66–118; RESP 17–20; TEMP 96.4–98.1; O2SAT 93–100
[2017-05-24] MEDS: RESP: ALBUTEROL 2.5 MG/IPRATROPIUM 0.5 MG NEB (SCH) NEB ×5 (04:00→19:45)
[2017-05-24] MEDS: LEVOTHYROXINE SODIUM 100 MCG TAB PO SCH (05:00)
[2017-05-24 06:04] LABS: AUTOMATED NEUTROPHIL # 25.6 TH/MM3 (1.8-7.7); BASOPHIL % 0.1 % (0.0-2.0); EOSINOPHIL # 0.1 TH/MM3 (0-0.4); EOSINOPHIL % 0.2 % (0.0-4.0); HEMATOCRIT 27.6 % (35.0-46.0); HEMOGLOBIN 9.3 GM/DL (11.6-15.3); LYMPH % 6.1 % (9.0-44.0); LYMPHOCYTE # 1.7 TH/MM3 (1.0-4.8); MEAN CELL VOLUME 89.8 FL (80.0-100.0); MEAN CORPUSCULAR HEMOGLOBIN 30.4 PG (27.0-34.0); MEAN CORPUSCULAR HGB CONC 33.8 % (32.0-36.0); MEAN PLATELET VOLUME 9.5 FL (7.0-11.0); MONOCYTE # 1.1 TH/MM3 (0-0.9); NEUT % 89.6 % (16.0-70.0); PLATELET COUNT 160 TH/MM3 (150-450); RED BLOOD COUNT 3.07 MIL/MM3 (4.00-5.30); RED CELL DISTRIBUTION WIDTH 14.6 % (11.6-17.2); WHITE BLOOD COUNT 28.5 TH/MM3 (4.0-11.0)
[2017-05-24 06:21] LABS: BICARBONATE 28.8 MEQ/L (21.0-32.0); CALCIUM 8.2 MG/DL (8.5-10.1); CREATININE 3.47 MG/DL (0.50-1.00); MAGNESIUM 1.5 MG/DL (1.5-2.5)
[2017-05-24 06:27] LABS: RANDOM VANCOMYCIN 7.4 COMMENT
[2017-05-24] MEDS: INSULIN ASPART SUPPLEMENTAL SCALE SQ SCH ×4 (08:00→21:18)
--- NOTE | 2017-05-24 08:20 | HHI.PR ---
Subjective Remarks Pt reports that she continues to feel better today Her cough is not as severe, she was able to sleep last night. Pt had a large normal BM this morning. No diarrhea. Afebrile. Objective Vitals Vital Signs Date Time Temp Pulse Resp B/P (MAP) Pulse Ox O2 Delivery O2 Flow Rate FiO2 05/24/17 04:00 98.1 70 18 124/56 (78) 98 05/24/17 03:47 66 05/24/17 00:17 69 05/24/17 00:00 97.2 118 18 130/61 (84) 94 05/23/17 20:50 94 Nasal Cannula 4.00 05/23/17 20:00 96.2 78 18 128/58 (81) 100 05/23/17 17:30 99 Nasal Cannula 3.00 05/23/17 16:00 97.0 83 18 135/63 (87) 100 05/23/17 12:00 96.0 80 20 130/63 (85) 97 Result Diagram: 05/24/17 0435 05/24/17 0435 Other Results Laboratory Tests Test 05/22/17 20:26 05/23/17 05:26 05/23/17 14:05 05/24/17 04:35 White Blood Count 40.3 TH/MM3 48.2 TH/MM3 28.5 TH/MM3 Red Blood Count 3.42 MIL/MM3 3.34 MIL/MM3 3.07 MIL/MM3 Hemoglobin 10.1 GM/DL 9.6 GM/DL 9.3 GM/DL Hematocrit 30.4 % 30.2 % 27.6 % Mean Corpuscular Volume 88.9 FL 90.3 FL 89.8 FL Mean Corpuscular Hemoglobin 29.5 PG 28.8 PG 30.4 PG Mean Corpuscular Hemoglobin Concent 33.2 % 31.9 % 33.8 % Red Cell Distribution Width 14.1 % 14.4 % 14.6 % Platelet Count 195 TH/MM3 163 TH/MM3 160 TH/MM3 Mean Platelet Volume 8.4 FL 9.1 FL 9.5 FL Neutrophils (%) (Auto) 90.2 % 95.7 % 89.6 % Lymphocytes (%) (Auto) 3.5 % 1.3 % 6.1 % Monocytes (%) (Auto) 6.0 % 2.9 % 4.0 % Eosinophils (%) (Auto) 0.0 % 0.0 % 0.2 % Basophils (%) (Auto) 0.3 % 0.1 % 0.1 % Neutrophils # (Auto) 36.3 TH/MM3 46.1 TH/MM3 25.6 TH/MM3 Lymphocytes # (Auto) 1.4 TH/MM3 0.6 TH/MM3 1.7 TH/MM3 Monocytes # (Auto) 2.4 TH/MM3 1.4 TH/MM3 1.1 TH/MM3 Eosinophils # (Auto) 0.0 TH/MM3 0.0 TH/MM3 0.1 TH/MM3 Basophils # (Auto) 0.1 TH/MM3 0.0 TH/MM3 0.0 TH/MM3 CBC Comment AUTO DIFF AUTO DIFF DIFF FINAL Differential Total Cells Counted 100 100 Neutrophils % (Manual) 92 % 77 % Band Neutrophils % 2 % 16 % Lymphocytes % 3 % 2 % Neutrophils # (Manual) 39.1 TH/MM3 44.8 TH/MM3 Metamyelocytes 3 % Differential Comment FINAL DIFF MANUAL FINAL DIFF MANUAL Prothrombin Time 11.4 SEC Prothromb Time International Ratio 1.1 RATIO Activated Partial Thromboplast Time 21.7 SEC Blood Urea Nitrogen 71 MG/DL 74 MG/DL 83 MG/DL Creatinine 3.19 MG/DL 3.41 MG/DL 3.47 MG/DL Random Glucose 170 MG/DL 316 MG/DL 263 MG/DL 92 MG/DL Total Protein 6.6 GM/DL 6.5 GM/DL Albumin 2.8 GM/DL 2.5 GM/DL Calcium Level 8.3 MG/DL 8.5 MG/DL 8.2 MG/DL Magnesium Level 1.3 MG/DL 1.5 MG/DL Alkaline Phosphatase 122 U/L 112 U/L Aspartate Amino Transf (AST/SGOT) 10 U/L 12 U/L Alanine Aminotransferase (ALT/SGPT) 15 U/L 14 U/L Total Bilirubin 0.7 MG/DL 0.6 MG/DL Sodium Level 135 MEQ/L 135 MEQ/L 137 MEQ/L Potassium Level 3.0 MEQ/L 4.4 MEQ/L 4.2 MEQ/L Chloride Level 97 MEQ/L 97 MEQ/L 99 MEQ/L Carbon Dioxide Level 26.9 MEQ/L 25.1 MEQ/L 28.8 MEQ/L Anion Gap 11 MEQ/L 13 MEQ/L 9 MEQ/L Estimat Glomerular Filtration Rate 14 ML/MIN 13 ML/MIN 12 ML/MIN Lactic Acid Level 1.7 mmol/L Total Creatine Kinase 50 U/L Troponin I 0.09 NG/ML B-Type Natriuretic Peptide 296 PG/ML Lipase 108 U/L Monocytes % 5 % Platelet Estimate NORMAL Platelet Morphology Comment NORMAL Red Cell Morphology Comment NORMAL Random Vancomycin Level 7.4 COMMENT Imaging Last 24 hours Impressions Chest X-Ray 05/22/17 [id number] Signed Impressions: Service Date/Time: Monday, May 22, 2017 19:41 - CONCLUSION: 1. New patchy opacity the right lung base with concern for pneumonia. 2. Cardiomegaly with no evidence of pulmonary edema. Orlando Chavez MD Objective Remarks General: NAD, AAOx3 Chest: Improved aeration, minimal wheeze Cardiac: Regular Abd: +BS, soft ND/NT Ext: No significant edema A/P Problem List: (1) Pneumonia ICD Codes: J18.9 - Pneumonia, unspecified organism Status: Acute Plan: Pt is an 87 y/o female with atrial fibrillation s/p PPM in 02/2013, CHF, COPD/ restrictive lung disease who follows with Dr. Ricks, CKD stage [address] Carrillo, HTN, Hyperlipidemia, hypothyroidism, and diabetes. She was recently admitted to [facility] 05/10-05/14 for COPD exacerbation. Pt was discharged on Prednisone taper, Symbicort, Duonebs , and supplemental O2. She refused SNF placement at discharge and was felt to be high risk for readmission at that time. Pneumonia Leukocytosis COPD exacerbation - Pt presented back to the ED at [facility] on 05/22/17 with complaints of fever ( Tmax 103), increased productive cough and SOB. - CXR in the ED noted new patchy opacity the right lung base with concern for pneumonia. Cardiomegaly with no evidence of pulmonary edema. - Her WBC count at admission was 40.3 - Pt was given Solu-Medrol, Duoneb treatment, Vancomycin and Cefepime in the ED - She was continued on Cefepime at admission. - Pt was was continued on Symbicort - Resume Duoneb treatments Q4H WA (pt refusing duonebs during the night) and Q2 H PRN - Repeat labs this morning with WBC count 48,000 but pt was given Solu- Medrol in the ED. She denies any diarrhea or abdominal pain. It unclear if this leukocytosis is related to the pneumonia plus the steroids or if there is some other occult infection. - WBC count decreased to 28,000 on 05/24 - Cont. Mucinex - Blood cultures with no growth x 1 day - Sputum culture is pending. - Pt has been afebrile since admission - Monitor clinical status closely - Monitor labs - Pt currently on 3L of supplemental O2 via NC and overall feeling better. - Supportive care - DVT prophylaxis with SCDs Atrial fibrillation - Pt with hx of atrial fibrillation s/p PPM in 02/2013 - Cont. ASA - Cont. telemetry CKD (chronic kidney disease) stage 4, GFR 15-29 ml/min - Baseline GFR 14 -16 - Labs at admission are slightly worse than baseline but pt reports that she was not eating or drinking well for a few days prior to admission, so may be related to some dehydration. - BUN/Cr increased slightly on 05/24. Will stop lasix (pt only uses this as needed at home). Encourage to increase po fluid intake - Monitor labs closely - Pt follows with Dr. Carrillo - She had a RUE AVF placed in 04/2015 which occluded and cannot be used Diabetes - NovoLog SSI - Accu checks - Anticipate steroid hyperglycemia HTN (hypertension) - Her home meds were resumed, Losartan (may need to hold if renal function does not improve) - Clonidine and Vasotec PRN Hypothyroidism - Home meds resumed (2) Leukocytosis ICD Codes: D72.829 - Leukocytosis Status: Acute Plan: - See above (3) COPD (chronic obstructive pulmonary disease) ICD Codes: J44.9 - Chronic obstructive pulmonary disease, unspecified Status: Acute Plan: - See above (4) CKD (chronic kidney disease) stage 4, GFR 15-29 ml/min ICD Codes: N18.4 - Chronic kidney disease, stage IV (severe) Status: Chronic Plan: - See above Assessment and Plan Patient examined. Assessment and plan formulated with Maritza DAVALOS I agree with the above. copd exacerbation and right lung pna wbc trending down. f/u blood and sputum cx cont nebs. cont abx. Problem Qualifiers (1) Pneumonia: Qualified Codes: J18.1 - Lobar pneumonia, unspecified organism (2) Leukocytosis: Qualified Codes: D72.829 - Elevated white blood cell count, unspecified (3) COPD (chronic obstructive pulmonary disease): Qualified Codes: J44.9 - Chronic obstructive pulmonary disease, unspecified Maritza Wilson May 24, 2017 08:20 Jeff Linn MD May 24, 2017 13:00
[2017-05-24] MEDS ORDERED: VANCOMYCIN 1,000 MG/NS 250 ML IV ONE ×2 (10:00)
[2017-05-24] MEDS: BUDESONIDE-FORMOTEROL 160/4.5 MCG INHALER INH SCH ×2 (10:30→20:16)
[2017-05-24] MEDS: SODIUM BICARBONATE 650 MG TAB PO SCH ×3 (10:31→16:47)
[2017-05-24] MEDS: SODIUM CHLORIDE 0.9% FLUSH 10 ML FLUSH IV FLUSH SCH ×2 (10:31→20:16)
[2017-05-24] MEDS: ASPIRIN 325 MG TAB PO SCH (10:31)
[2017-05-24] MEDS: DOCUSATE SODIUM 50 MG/SENNA 8.6 MG TAB PO SCH ×2 (10:31→20:15)
[2017-05-24] MEDS: LOSARTAN 50 MG TAB PO SCH (10:31)
[2017-05-24] MEDS: guaiFENesin E.R. 600 MG TAB PO SCH ×2 (10:31→20:15)
[2017-05-24] MEDS: CEFEPIME 2000 MG/NS 100 ML IV SCH ×2 (10:32)
--- NOTE | 2017-05-24 13:43 | EKG ---
Date Performed: 05/22/2017 Time Performed: 20:01:34 PTAGE: 87 years EKG: ATRIAL FLUTTER/TACHYCARDIA MODERATE INTRAVENTRICULAR CONDUCTION DELAY ST DEVIATION AND MODE RATE T-WAVE ABNORMALITY, CONSIDER LATERAL ISCHEMIA ST DEVIATION AND MODERATE T-WAVE ABNORMALITY, CONS IDER INFERIOR ISCHEMIA Compared to previous tracing, ST-T wave changes are similar ABNORMAL ECG PREVIOUS TRACING : 05/10/2017 20.15 DOCTOR: Lamont Rousseau Interpretating Date/Time 05/24/2017 13:42:27
[2017-05-24] MEDS: hydrOXYzine HCL 25 MG TAB PO SCH (20:16)
[2017-05-25] VITALS (10 sets, daily range): BP systolic 128–167; BP diastolic 54–76; PULSE 74–97; RESP 16–20; TEMP 96–99; O2SAT 94–100
[2017-05-25] MEDS: LEVOTHYROXINE SODIUM 100 MCG TAB PO SCH (04:54)
[2017-05-25] MEDS: RESP: ALBUTEROL 2.5 MG/IPRATROPIUM 0.5 MG NEB (SCH) NEB ×4 (07:47→19:05)
[2017-05-25] MEDS: INSULIN ASPART SUPPLEMENTAL SCALE SQ SCH ×4 (08:00→21:00)
[2017-05-25] MEDS: guaiFENesin E.R. 600 MG TAB PO SCH ×2 (08:18→21:55)
[2017-05-25] MEDS: SODIUM BICARBONATE 650 MG TAB PO SCH ×3 (08:18→17:08)
[2017-05-25] MEDS: DOCUSATE SODIUM 50 MG/SENNA 8.6 MG TAB PO SCH ×2 (08:19→21:00)
[2017-05-25] MEDS: ASPIRIN 325 MG TAB PO SCH (08:19)
[2017-05-25] MEDS: BUDESONIDE-FORMOTEROL 160/4.5 MCG INHALER INH SCH ×2 (08:19→21:54)
[2017-05-25] MEDS: LOSARTAN 50 MG TAB PO SCH (08:19)
[2017-05-25] MEDS: SODIUM CHLORIDE 0.9% FLUSH 10 ML FLUSH IV FLUSH SCH ×2 (08:20→21:54)
[2017-05-25 09:05] LABS: AUTOMATED NEUTROPHIL # 13.8 TH/MM3 (1.8-7.7); BASOPHIL # 0.1 TH/MM3 (0-0.2); BASOPHIL % 0.3 % (0.0-2.0); EOSINOPHIL # 0.1 TH/MM3 (0-0.4); EOSINOPHIL % 0.9 % (0.0-4.0); HEMATOCRIT 26.2 % (35.0-46.0); HEMOGLOBIN 8.6 GM/DL (11.6-15.3); LYMPH % 7.6 % (9.0-44.0); LYMPHOCYTE # 1.2 TH/MM3 (1.0-4.8); MEAN CELL VOLUME 89.5 FL (80.0-100.0); MEAN CORPUSCULAR HEMOGLOBIN 29.4 PG (27.0-34.0); MEAN CORPUSCULAR HGB CONC 32.9 % (32.0-36.0); MONO % 4.8 % (0.0-8.0); MONOCYTE # 0.8 TH/MM3 (0-0.9); NEUT % 86.4 % (16.0-70.0); PLATELET COUNT 140 TH/MM3 (150-450); RED BLOOD COUNT 2.93 MIL/MM3 (4.00-5.30); RED CELL DISTRIBUTION WIDTH 14.6 % (11.6-17.2)
[2017-05-25 09:26] LABS: BICARBONATE 27.7 MEQ/L (21.0-32.0); CALCIUM 7.8 MG/DL (8.5-10.1); CREATININE 3.15 MG/DL (0.50-1.00); MAGNESIUM 1.5 MG/DL (1.5-2.5)
[2017-05-25] MEDS: CEFEPIME 2000 MG/NS 100 ML IV SCH ×2 (11:15)
--- NOTE | 2017-05-25 13:06 | HHI.PR ---
Subjective Remarks SOB improved from admission Objective Vitals Vital Signs Date Time Temp Pulse Resp B/P (MAP) Pulse Ox O2 Delivery O2 Flow Rate FiO2 05/25/17 12:00 98.5 88 16 142/69 (93) 96 05/25/17 08:29 Nasal Cannula 4.00 05/25/17 08:00 99.0 86 19 128/57 (80) 97 05/25/17 07:47 96 Nasal Cannula 3.00 05/25/17 04:11 74 05/25/17 04:00 99.0 91 20 135/63 (87) 97 05/25/17 00:09 77 05/25/17 00:00 96.8 82 20 136/63 (87) 100 05/24/17 20:12 84 05/24/17 20:00 96.4 94 20 131/59 (83) 97 05/24/17 16:10 93 Nasal Cannula 3.00 05/24/17 16:00 96.8 72 17 158/70 (99) 95 Result Diagram: 05/25/17 0809 05/25/17 0809 Imaging Last Impressions Chest X-Ray 05/22/17 [id number] Signed Impressions: Service Date/Time: Monday, May 22, 2017 19:41 - CONCLUSION: 1. New patchy opacity the right lung base with concern for pneumonia. 2. Cardiomegaly with no evidence of pulmonary edema. Orlando Chavez MD Objective Remarks General: NAD, AAOx3 Chest: Improved aeration, minimal wheeze Cardiac: Regular Abd: +BS, soft ND/NT Ext: No significant edema A/P Problem List: (1) Pneumonia ICD Codes: J18.9 - Pneumonia, unspecified organism Status: Acute Plan: Pt is an 87 y/o female with atrial fibrillation s/p PPM in 02/2013, CHF, COPD/ restrictive lung disease who follows with Dr. Ricks, CKD stage [address] Carrillo, HTN, Hyperlipidemia, hypothyroidism, and diabetes. She was recently admitted to [facility] [place] from 05/10-05/14 for COPD exacerbation. Pt was discharged on Prednisone taper, Symbicort, Duonebs , and supplemental O2. She refused SNF placement at discharge and was felt to be high risk for readmission at that time. Pneumonia Leukocytosis COPD exacerbation - Pt presented back to the ED at [facility] on 05/22/17 with complaints of fever ( Tmax 103), increased productive cough and SOB. - CXR in the ED noted new patchy opacity the right lung base with concern for pneumonia. Cardiomegaly with no evidence of pulmonary edema. - WBC 48.2 K on (05/23/17), 16K (05/25), unclear if d/t her pneumonia and/or steroids vs other occult infection - Pt was given Solu-Medrol, Duoneb treatment, Vancomycin and Cefepime in the ED - She was continued on Cefepime at admission. - Pt was was continued on Symbicort - Duoneb q4h while awake, and q2h prn - Cont. Mucinex - Blood cultures (05/22) --> CULTURE GROWING GRAM NEGATIVE COCCOBACILLI RESEMBLING HAEMOPHILUS SP. - await sensitivities, continue current antibiotics - Tmax 99F - Sputum culture (05/22) --> heavy growth of normal melinda - Pt currently on 4L of supplemental O2 via NC and overall feeling better. - repeat CXR in AM - Supportive care - DVT prophylaxis with SCDs Atrial fibrillation - Pt with hx of atrial fibrillation s/p PPM in 02/2013 - Cont. ASA - Cont. telemetry CKD (chronic kidney disease) stage 4, GFR 15-29 ml/min - Baseline GFR 14 -16 - Creatine increased from baseline on admission - now improved to baseline reading, Cr 3.15 (05/25) Diabetes - NovoLog SSI - Accu checks - Anticipate steroid hyperglycemia HTN (hypertension) - Her home meds were resumed, Losartan (may need to hold if renal function does not improve) - Clonidine and Vasotec PRN Hypothyroidism - Home meds resumed (2) Leukocytosis ICD Codes: D72.829 - Leukocytosis Status: Acute Plan: - See above (3) COPD (chronic obstructive pulmonary disease) ICD Codes: J44.9 - Chronic obstructive pulmonary disease, unspecified Status: Acute Plan: - See above (4) CKD (chronic kidney disease) stage 4, GFR 15-29 ml/min ICD Codes: N18.4 - Chronic kidney disease, stage IV (severe) Status: Chronic Plan: - See above Assessment and Plan Patient examined. Assessment and plan formulated with Maritza Wilson PA-C. I agree with the above. copd exacerbation and right lung pna wbc trending down. f/u blood and sputum cx cont nebs. cont abx. Problem Qualifiers (1) Pneumonia: Qualified Codes: J18.1 - Lobar pneumonia, unspecified organism (2) Leukocytosis: Qualified Codes: D72.829 - Elevated white blood cell count, unspecified (3) COPD (chronic obstructive pulmonary disease): Qualified Codes: J44.9 - Chronic obstructive pulmonary disease, unspecified Sam Weir DO May 25, 2017 13:06
[2017-05-25] MEDS ORDERED: VANCOMYCIN 1,000 MG/NS 250 ML IV ONE ×2 (14:00)
[2017-05-25] MEDS: hydrOXYzine HCL 25 MG TAB PO SCH (21:55)
[2017-05-26] VITALS (8 sets, daily range): BP systolic 129–164; BP diastolic 63–98; PULSE 75–87; RESP 17–22; TEMP 95.2–100; O2SAT 96–100
[2017-05-26] MEDS: LEVOTHYROXINE SODIUM 100 MCG TAB PO SCH (05:49)
[2017-05-26 07:33] LABS: BASOPHIL % 0.1 % (0.0-2.0); EOSINOPHIL # 0.2 TH/MM3 (0-0.4); EOSINOPHIL % 2.2 % (0.0-4.0); HEMATOCRIT 26.6 % (35.0-46.0); LYMPH % 8.5 % (9.0-44.0); LYMPHOCYTE # 0.8 TH/MM3 (1.0-4.8); MEAN CELL VOLUME 90.5 FL (80.0-100.0); MEAN CORPUSCULAR HEMOGLOBIN 30.8 PG (27.0-34.0); MEAN PLATELET VOLUME 9.1 FL (7.0-11.0); MONO % 8.1 % (0.0-8.0); MONOCYTE # 0.8 TH/MM3 (0-0.9); NEUT % 81.1 % (16.0-70.0); PLATELET COUNT 123 TH/MM3 (150-450); RED BLOOD COUNT 2.94 MIL/MM3 (4.00-5.30); RED CELL DISTRIBUTION WIDTH 14.6 % (11.6-17.2); WHITE BLOOD COUNT 9.9 TH/MM3 (4.0-11.0)
[2017-05-26] MEDS: RESP: ALBUTEROL 2.5 MG/IPRATROPIUM 0.5 MG NEB (SCH) NEB ×4 (07:39→20:39)
[2017-05-26 07:52] LABS: BICARBONATE 25.9 MEQ/L (21.0-32.0); CALCIUM 8.6 MG/DL (8.5-10.1); CREATININE 2.79 MG/DL (0.50-1.00); MAGNESIUM 1.6 MG/DL (1.5-2.5); RANDOM VANCOMYCIN 16.6 COMMENT
[2017-05-26] MEDS: INSULIN ASPART SUPPLEMENTAL SCALE SQ SCH ×4 (08:00→21:01)
[2017-05-26] MEDS: LOSARTAN 50 MG TAB PO SCH (08:36)
[2017-05-26] MEDS: guaiFENesin E.R. 600 MG TAB PO SCH ×2 (08:36→20:59)
[2017-05-26] MEDS: BUDESONIDE-FORMOTEROL 160/4.5 MCG INHALER INH SCH ×2 (08:36→20:59)
[2017-05-26] MEDS: SODIUM BICARBONATE 650 MG TAB PO SCH ×3 (08:36→18:06)
[2017-05-26] MEDS: SODIUM CHLORIDE 0.9% FLUSH 10 ML FLUSH IV FLUSH SCH ×2 (08:37→20:59)
[2017-05-26] MEDS: ASPIRIN 325 MG TAB PO SCH (08:37)
[2017-05-26] MEDS: DOCUSATE SODIUM 50 MG/SENNA 8.6 MG TAB PO SCH ×2 (08:38→20:59)
--- NOTE | 2017-05-26 10:06 | RADRPT ---
EXAM DATE/TIME: 05/26/2017 08:55 [facility] COMPARISON: CHEST SINGLE AP, May 22, 2017, 19:41. INDICATIONS : Cough, congestion. MEDICAL HISTORY : Hypertension. Diabetes mellitus type II. Congestive heart failure. COPD. SURGICAL HISTORY : Pacemaker. ENCOUNTER: Subsequent ACUITY: 4 - 6 days PAIN SCORE: 0/10 LOCATION: Bilateral chest FINDINGS: The heart is enlarged. There is a transvenous pacer in good position. There are bilateral effusions a nd diffuse interstitial prominence suggesting congestive failure. Overall, the appearance of the leodan nchyma is worse when compared to previous dated 05/22/17. CONCLUSION: 1. Bilateral effusions, cardiomegaly and interstitial prominence suggesting congestive failure. Jason Burrell MD on May 26, 2017 at 10:03 Board Certified Radiologist. This report was verified electronically.
[2017-05-26] MEDS: CEFEPIME 2000 MG/NS 100 ML IV SCH ×2 (10:49)
[2017-05-26] MEDS ORDERED: VANCOMYCIN 1,500 MG/NS 500 ML IV ONE ×2 (12:00)
[2017-05-26] MEDS: FUROSEMIDE 80 MG TAB PO SCH (14:46)
--- NOTE | 2017-05-26 14:55 | HHI.PR ---
Subjective Remarks Pts does not feel that her breathing is much better today She is on 3L of supplemental O2 Denies much sputum production Afebrile Objective Vitals Vital Signs Date Time Temp Pulse Resp B/P (MAP) Pulse Ox O2 Delivery O2 Flow Rate FiO2 05/26/17 12:00 96.4 83 19 163/72 (102) 100 05/26/17 08:00 96.9 75 21 155/66 (95) 99 05/26/17 07:47 98 Nasal Cannula 3.00 05/26/17 04:00 99.1 05/26/17 00:00 100.0 83 22 156/63 (94) 99 05/25/17 21:45 97 Nasal Cannula 2.00 05/25/17 20:00 96.0 87 17 141/54 (83) 97 05/25/17 16:00 96.1 97 17 167/76 (106) 94 05/25/17 15:19 96 Nasal Cannula 3.00 Result Diagram: 05/26/17 0647 05/26/17 0647 Other Results Laboratory Tests Test 05/25/17 08:09 05/26/17 06:47 White Blood Count 16.0 TH/MM3 9.9 TH/MM3 Red Blood Count 2.93 MIL/MM3 2.94 MIL/MM3 Hemoglobin 8.6 GM/DL 9.0 GM/DL Hematocrit 26.2 % 26.6 % Mean Corpuscular Volume 89.5 FL 90.5 FL Mean Corpuscular Hemoglobin 29.4 PG 30.8 PG Mean Corpuscular Hemoglobin Concent 32.9 % 34.0 % Red Cell Distribution Width 14.6 % 14.6 % Platelet Count 140 TH/MM3 123 TH/MM3 Mean Platelet Volume 9.0 FL 9.1 FL Neutrophils (%) (Auto) 86.4 % 81.1 % Lymphocytes (%) (Auto) 7.6 % 8.5 % Monocytes (%) (Auto) 4.8 % 8.1 % Eosinophils (%) (Auto) 0.9 % 2.2 % Basophils (%) (Auto) 0.3 % 0.1 % Neutrophils # (Auto) 13.8 TH/MM3 8.0 TH/MM3 Lymphocytes # (Auto) 1.2 TH/MM3 0.8 TH/MM3 Monocytes # (Auto) 0.8 TH/MM3 0.8 TH/MM3 Eosinophils # (Auto) 0.1 TH/MM3 0.2 TH/MM3 Basophils # (Auto) 0.1 TH/MM3 0.0 TH/MM3 CBC Comment DIFF FINAL DIFF FINAL Differential Comment Blood Urea Nitrogen 80 MG/DL 76 MG/DL Creatinine 3.15 MG/DL 2.79 MG/DL Random Glucose 117 MG/DL 115 MG/DL Calcium Level 7.8 MG/DL 8.6 MG/DL Magnesium Level 1.5 MG/DL 1.6 MG/DL Sodium Level 135 MEQ/L 137 MEQ/L Potassium Level 4.2 MEQ/L 4.3 MEQ/L Chloride Level 100 MEQ/L 103 MEQ/L Carbon Dioxide Level 27.7 MEQ/L 25.9 MEQ/L Anion Gap 7 MEQ/L 8 MEQ/L Estimat Glomerular Filtration Rate 14 ML/MIN 16 ML/MIN Random Vancomycin Level 15.0 COMMENT 16.6 COMMENT Imaging Last Impressions Chest X-Ray 05/26/17 0800 Signed Impressions: Service Date/Time: Friday, May 26, 2017 08:55 - CONCLUSION: 1. Bilateral effusions, cardiomegaly and interstitial prominence suggesting congestive failure. Jason Burrell MD Last Impressions Chest X-Ray 05/22/17 1856 Signed Impressions: Service Date/Time: Monday, May 22, 2017 19:41 - CONCLUSION: 1. New patchy opacity the right lung base with concern for pneumonia. 2. Cardiomegaly with no evidence of pulmonary edema. Orlando Chavez MD Objective Remarks General: NAD, AAOx3 Chest: Improved aeration Cardiac: Regular Abd: +BS, soft ND/NT Ext: No significant edema A/P Problem List: (1) Pneumonia ICD Codes: J18.9 - Pneumonia, unspecified organism Status: Acute Plan: Pt is an 87 y/o female with atrial fibrillation s/p PPM in 02/2013, CHF, COPD/ restrictive lung disease who follows with Dr. Ricks, CKD stage [address] Carrillo, HTN, Hyperlipidemia, hypothyroidism, and diabetes. She was recently admitted to [facility] [place] from 05/10-05/14 for COPD exacerbation. Pt was discharged on Prednisone taper, Symbicort, Duonebs , and supplemental O2. She refused SNF placement at discharge and was felt to be high risk for readmission at that time. Pneumonia Leukocytosis COPD exacerbation - Pt presented back to the ED at [facility] on 05/22/17 with complaints of fever ( Tmax 103), increased productive cough and SOB. - CXR in the ED noted new patchy opacity the right lung base with concern for pneumonia. Cardiomegaly with no evidence of pulmonary edema. - WBC 48.2 K on (05/23/17), WBC count down to 9K (05/26), unclear if d/t her pneumonia and/or steroids vs combination of the two - Pt was given Solu-Medrol, Duoneb treatment, Vancomycin and Cefepime in the ED - She was continued on Cefepime at admission. - Pt was was continued on Symbicort - Duoneb q4h while awake, and q2h prn - Cont. Mucinex - Blood cultures (05/22) --> Haemophilus Influenza - await sensitivities, continue current antibiotics - Tmax 99F - Sputum culture (05/22) --> heavy growth of normal melinda - Pt currently on 3L of supplemental O2 via NC and overall feeling better. - CXR (05/26/17) --> Bilateral effusions, cardiomegaly and interstitial prominence suggesting congestive failure. - Resume pts Lasix 80mg po daily - Monitor labs - Supportive care - DVT prophylaxis with SCDs Atrial fibrillation - Pt with hx of atrial fibrillation s/p PPM in 02/2013 - Cont. ASA - Cont. telemetry CKD (chronic kidney disease) stage 4, GFR 15-29 ml/min - Baseline GFR 14 -16 - Creatine increased from baseline on admission - Cr 2.79 (05/25)2 - Monitor closely with reinitiating Lasix Diabetes - NovoLog SSI - Accu checks - Anticipate steroid hyperglycemia HTN (hypertension) - Her home meds were resumed, Losartan (may need to hold if renal function does not improve) - Clonidine and Vasotec PRN Hypothyroidism - Home meds resumed (2) Leukocytosis ICD Codes: D72.829 - Leukocytosis Status: Acute Plan: - See above (3) COPD (chronic obstructive pulmonary disease) ICD Codes: J44.9 - Chronic obstructive pulmonary disease, unspecified Status: Acute Plan: - See above (4) CKD (chronic kidney disease) stage 4, GFR 15-29 ml/min ICD Codes: N18.4 - Chronic kidney disease, stage IV (severe) Status: Chronic Plan: - See above Assessment and Plan Patient examined. Assessment and plan formulated with Maritza Wilson PA-C. I agree with the above. Problem Qualifiers (1) Pneumonia: Qualified Codes: J18.1 - Lobar pneumonia, unspecified organism (2) Leukocytosis: Qualified Codes: D72.829 - Elevated white blood cell count, unspecified (3) COPD (chronic obstructive pulmonary disease): Qualified Codes: J44.9 - Chronic obstructive pulmonary disease, unspecified Maritza Wilson May 26, 2017 14:55 Sam Weir DO May 29, 2017 00:46
[2017-05-26] MEDS: hydrOXYzine HCL 25 MG TAB PO SCH (20:59)
[2017-05-27] VITALS (7 sets, daily range): BP systolic 100–137; BP diastolic 50–65; PULSE 81–106; RESP 17–20; TEMP 94.8–99; O2SAT 96–100
[2017-05-27] MEDS: LEVOTHYROXINE SODIUM 100 MCG TAB PO SCH (06:16)
[2017-05-27 07:10] LABS: AUTOMATED NEUTROPHIL # 5.6 TH/MM3 (1.8-7.7); BASOPHIL % 0.3 % (0.0-2.0); EOSINOPHIL # 0.3 TH/MM3 (0-0.4); EOSINOPHIL % 4.6 % (0.0-4.0); HEMATOCRIT 26.5 % (35.0-46.0); HEMOGLOBIN 8.9 GM/DL (11.6-15.3); LYMPHOCYTE # 0.7 TH/MM3 (1.0-4.8); MEAN CELL VOLUME 90.5 FL (80.0-100.0); MEAN CORPUSCULAR HEMOGLOBIN 30.4 PG (27.0-34.0); MEAN CORPUSCULAR HGB CONC 33.6 % (32.0-36.0); MEAN PLATELET VOLUME 9.5 FL (7.0-11.0); MONO % 10.1 % (0.0-8.0); MONOCYTE # 0.8 TH/MM3 (0-0.9); PLATELET COUNT 116 TH/MM3 (150-450); RED BLOOD COUNT 2.93 MIL/MM3 (4.00-5.30); RED CELL DISTRIBUTION WIDTH 14.5 % (11.6-17.2); WHITE BLOOD COUNT 7.4 TH/MM3 (4.0-11.0)
[2017-05-27 07:38] LABS: BICARBONATE 27.3 MEQ/L (21.0-32.0); CALCIUM 8.5 MG/DL (8.5-10.1); CREATININE 2.74 MG/DL (0.50-1.00); MAGNESIUM 1.5 MG/DL (1.5-2.5)
[2017-05-27 07:40] LABS: RANDOM VANCOMYCIN 26.6 COMMENT
[2017-05-27] MEDS: INSULIN ASPART SUPPLEMENTAL SCALE SQ SCH ×4 (08:00→21:00)
[2017-05-27] MEDS: SODIUM CHLORIDE 0.9% FLUSH 10 ML FLUSH IV FLUSH SCH ×2 (08:36→22:43)
[2017-05-27] MEDS: BUDESONIDE-FORMOTEROL 160/4.5 MCG INHALER INH SCH ×2 (08:36→22:43)
[2017-05-27] MEDS: DOCUSATE SODIUM 50 MG/SENNA 8.6 MG TAB PO SCH ×2 (08:37→22:44)
[2017-05-27] MEDS: LOSARTAN 50 MG TAB PO SCH (08:37)
[2017-05-27] MEDS: FUROSEMIDE 80 MG TAB PO SCH (08:37)
[2017-05-27] MEDS: guaiFENesin E.R. 600 MG TAB PO SCH ×2 (08:37→22:44)
[2017-05-27] MEDS: ASPIRIN 325 MG TAB PO SCH (08:37)
[2017-05-27] MEDS: SODIUM BICARBONATE 650 MG TAB PO SCH ×3 (08:38→12:45)
[2017-05-27] MEDS: RESP: ALBUTEROL 2.5 MG/IPRATROPIUM 0.5 MG NEB (SCH) NEB ×4 (08:49→19:47)
[2017-05-27] MEDS: CEFEPIME 2000 MG/NS 100 ML IV SCH ×2 (12:05)
--- NOTE | 2017-05-27 16:45 | HHI.PR ---
Subjective Remarks Patient sitting up in chair reports feeling better today Offers no specific complaints at this time Objective Vitals Vital Signs Date Time Temp Pulse Resp B/P (MAP) Pulse Ox O2 Delivery O2 Flow Rate FiO2 05/27/17 16:33 100 Nasal Cannula 3.00 05/27/17 16:00 95.7 86 19 137/65 (89) 100 05/27/17 12:00 97.3 85 19 128/63 (84) 98 05/27/17 08:51 96 Nasal Cannula 3.00 05/27/17 08:50 96 Nasal Cannula 3.00 05/27/17 08:00 99.0 81 19 122/60 (80) 96 05/27/17 00:00 97.5 88 17 136/64 (88) 98 05/26/17 20:41 96 Nasal Cannula 3.00 05/26/17 20:00 98.5 87 17 129/73 (91) 100 05/26/17 20:00 100 Nasal Cannula 2.00 05/27/17 05/27/17 05/28/17 15:00 23:00 07:00 Intake Total 100 ml Balance 100 ml IV Total 100 ml Result Diagram: 05/27/17 0630 05/27/17 0636 Other Results Laboratory Tests Test 05/25/17 08:09 05/26/17 06:47 05/27/17 06:30 05/27/17 06:36 White Blood Count 16.0 TH/MM3 9.9 TH/MM3 7.4 TH/MM3 Red Blood Count 2.93 MIL/MM3 2.94 MIL/MM3 2.93 MIL/MM3 Hemoglobin 8.6 GM/DL 9.0 GM/DL 8.9 GM/DL Hematocrit 26.2 % 26.6 % 26.5 % Mean Corpuscular Volume 89.5 FL 90.5 FL 90.5 FL Mean Corpuscular Hemoglobin 29.4 PG 30.8 PG 30.4 PG Mean Corpuscular Hemoglobin Concent 32.9 % 34.0 % 33.6 % Red Cell Distribution Width 14.6 % 14.6 % 14.5 % Platelet Count 140 TH/MM3 123 TH/MM3 116 TH/MM3 Mean Platelet Volume 9.0 FL 9.1 FL 9.5 FL Neutrophils (%) (Auto) 86.4 % 81.1 % 75.0 % Lymphocytes (%) (Auto) 7.6 % 8.5 % 10.0 % Monocytes (%) (Auto) 4.8 % 8.1 % 10.1 % Eosinophils (%) (Auto) 0.9 % 2.2 % 4.6 % Basophils (%) (Auto) 0.3 % 0.1 % 0.3 % Neutrophils # (Auto) 13.8 TH/MM3 8.0 TH/MM3 5.6 TH/MM3 Lymphocytes # (Auto) 1.2 TH/MM3 0.8 TH/MM3 0.7 TH/MM3 Monocytes # (Auto) 0.8 TH/MM3 0.8 TH/MM3 0.8 TH/MM3 Eosinophils # (Auto) 0.1 TH/MM3 0.2 TH/MM3 0.3 TH/MM3 Basophils # (Auto) 0.1 TH/MM3 0.0 TH/MM3 0.0 TH/MM3 CBC Comment DIFF FINAL DIFF FINAL DIFF FINAL Differential Comment Blood Urea Nitrogen 80 MG/DL 76 MG/DL 68 MG/DL Creatinine 3.15 MG/DL 2.79 MG/DL 2.74 MG/DL Random Glucose 117 MG/DL 115 MG/DL 93 MG/DL Calcium Level 7.8 MG/DL 8.6 MG/DL 8.5 MG/DL Magnesium Level 1.5 MG/DL 1.6 MG/DL 1.5 MG/DL Sodium Level 135 MEQ/L 137 MEQ/L 137 MEQ/L Potassium Level 4.2 MEQ/L 4.3 MEQ/L 4.2 MEQ/L Chloride Level 100 MEQ/L 103 MEQ/L 102 MEQ/L Carbon Dioxide Level 27.7 MEQ/L 25.9 MEQ/L 27.3 MEQ/L Anion Gap 7 MEQ/L 8 MEQ/L 8 MEQ/L Estimat Glomerular Filtration Rate 14 ML/MIN 16 ML/MIN 16 ML/MIN Random Vancomycin Level 15.0 COMMENT 16.6 COMMENT 26.6 COMMENT Imaging Last Impressions Chest X-Ray 05/26/17 0800 Signed Impressions: Service Date/Time: Friday, May 26, 2017 08:55 - CONCLUSION: 1. Bilateral effusions, cardiomegaly and interstitial prominence suggesting congestive failure. Jason Burrell MD Last Impressions Chest X-Ray 05/22/17 1856 Signed Impressions: Service Date/Time: Monday, May 22, 2017 19:41 - CONCLUSION: 1. New patchy opacity the right lung base with concern for pneumonia. 2. Cardiomegaly with no evidence of pulmonary edema. Orlando Chavez MD Objective Remarks General: NAD, AAOx3 Chest: Improved aeration Cardiac: Regular Abd: +BS, soft ND/NT Ext: No significant edema A/P Problem List: (1) Pneumonia ICD Codes: J18.9 - Pneumonia, unspecified organism Status: Acute Plan: Pt is an 87 y/o female with atrial fibrillation s/p PPM in 02/2013, CHF, COPD/ restrictive lung disease who follows with Dr. Ricks, CKD stage [address] Carrillo, HTN, Hyperlipidemia, hypothyroidism, and diabetes. She was recently admitted to [facility] from 05/10-05/14 for COPD exacerbation. Pt was discharged on Prednisone taper, Symbicort, Duonebs , and supplemental O2. She refused SNF placement at discharge and was felt to be high risk for readmission at that time. Pneumonia Leukocytosis COPD exacerbation - Pt presented back to the ED at [facility] on 05/22/17 with complaints of fever ( Tmax 103), increased productive cough and SOB. - CXR in the ED noted new patchy opacity the right lung base with concern for pneumonia. Cardiomegaly with no evidence of pulmonary edema. - WBC 48.2 K on (05/23/17), WBC count down to 9K (05/26), unclear if d/t her pneumonia and/or steroids vs combination of the two - Pt was given Solu-Medrol 125 mg in ER, Duoneb treatment, Vancomycin and Cefepime in the ED - Cefepime 05/23 - present - Pt was was continued on Symbicort - Duoneb q4h while awake, and q2h prn - Cont. Mucinex - Blood cultures (05/22) --> Haemophilus Influenza - continue current antibiotics - Sputum culture (05/22) --> heavy growth of normal melinda - Repeat culture no growth x 2 days - consult ID - Pt currently on 3L of supplemental O2 via NC and overall feeling better. - CXR (05/26/17) --> Bilateral effusions, cardiomegaly and interstitial prominence suggesting congestive failure. - Resume pts Lasix 80mg po daily - Monitor labs - Supportive care - DVT prophylaxis with SCDs Atrial fibrillation - Pt with hx of atrial fibrillation s/p PPM in 02/2013 - Cont. ASA - Cont. telemetry CKD (chronic kidney disease) stage 4, GFR 15-29 ml/min - Baseline GFR 14 -16 - Creatine increased from baseline on admission - Cr 2.79 (05/25)2 - Monitor closely with reinitiating Lasix Diabetes - NovoLog SSI - Accu checks - Anticipate steroid hyperglycemia HTN (hypertension) - Her home meds were resumed, Losartan (may need to hold if renal function does not improve) - Clonidine and Vasotec PRN Hypothyroidism - Home meds resumed Discharge planning Anticipatable DC home with [facility]HC in 1-2 days await ID recommendations (2) Leukocytosis ICD Codes: D72.829 - Leukocytosis Status: Acute Plan: - See above (3) COPD (chronic obstructive pulmonary disease) ICD Codes: J44.9 - Chronic obstructive pulmonary disease, unspecified Status: Acute Plan: - See above (4) CKD (chronic kidney disease) stage 4, GFR 15-29 ml/min ICD Codes: N18.4 - Chronic kidney disease, stage IV (severe) Status: Chronic Plan: - See above Assessment and Plan Patient examined. Assessment and plan formulated with Linda Britt PA-C. I agree with the above. Problem Qualifiers (1) Pneumonia: Qualified Codes: J18.1 - Lobar pneumonia, unspecified organism (2) Leukocytosis: Qualified Codes: D72.829 - Elevated white blood cell count, unspecified (3) COPD (chronic obstructive pulmonary disease): Qualified Codes: J44.9 - Chronic obstructive pulmonary disease, unspecified Linda Britt May 27, 2017 16:45 Sam Weir DO May 29, 2017 00:47
[2017-05-27] MEDS: hydrOXYzine HCL 25 MG TAB PO SCH (22:44)
[2017-05-28] VITALS (7 sets, daily range): BP systolic 127–141; BP diastolic 57–68; PULSE 79–122; RESP 20–22; TEMP 96.5–99.4; O2SAT 98–100
[2017-05-28] MEDS: LEVOTHYROXINE SODIUM 100 MCG TAB PO SCH (05:02)
[2017-05-28] MEDS: INSULIN ASPART SUPPLEMENTAL SCALE SQ SCH ×4 (07:56→21:00)
[2017-05-28] MEDS: RESP: ALBUTEROL 2.5 MG/IPRATROPIUM 0.5 MG NEB (SCH) NEB ×2 (08:10→11:08)
[2017-05-28] MEDS: ASPIRIN 325 MG TAB PO SCH (08:39)
[2017-05-28] MEDS: DOCUSATE SODIUM 50 MG/SENNA 8.6 MG TAB PO SCH ×2 (08:39→21:46)
[2017-05-28] MEDS: guaiFENesin E.R. 600 MG TAB PO SCH ×2 (08:39→21:45)
[2017-05-28] MEDS: BUDESONIDE-FORMOTEROL 160/4.5 MCG INHALER INH SCH ×2 (08:39→21:49)
[2017-05-28] MEDS: LOSARTAN 50 MG TAB PO SCH (08:39)
[2017-05-28] MEDS: SODIUM CHLORIDE 0.9% FLUSH 10 ML FLUSH IV FLUSH SCH ×2 (08:39→21:50)
[2017-05-28] MEDS: FUROSEMIDE 80 MG TAB PO SCH (08:39)
[2017-05-28] MEDS: CEFEPIME 2000 MG/NS 100 ML IV SCH ×2 (11:59)
--- NOTE | 2017-05-28 15:48 | PD.ID.CON ---
History of Present Illness Service ID Consult Requested By Dr Weir Reason for Consult bacteremic H. flu pneumonia Primary Care Physician Nissa Ko MD Diagnoses: History of Present Illness pt is an 87 yo female who is a poor historian and has a significant history of COPD, CHF and chronic kidney disease History obtained form the chart and Dr Lindsey She presented to the ED for evaluation of cough and shortness of breath on 05/22 Prior to that she was in the hospital with copd exacerbation and was sent home on prednisone and oxygen. She was doing okay but worsened for the past couple of days prior to presentation Her chest xray consistent with pneumonia and she has significant leukocytosis of 48 K . She was started on IV antibiotics . Her sputum clx has normal resp melinda and her blood clx were positive 08/26 for H.flu She markedly improved on cefepime and her repeat blood clx were negative Her leukocytosis went down to normal Review of Systems Except as stated in HPI: all other systems reviewed are Neg Past Family Social History Allergies: Coded Allergies: grass pollen (Unverified Allergy, Severe, CONGESTION, 05/22/17) animal dander (Unverified Allergy, Intermediate, NASAL, 05/22/17) NASAL CONGESTION grapefruit (Unverified Allergy, Unknown, due to drug interaction, 05/22/17 ) metformin (Unverified Adverse Reaction, Severe, Diarrhea, 05/22/17) acetaminophen (Unverified Adverse Reaction, Mild, N/V, 05/22/17) hydrocodone (Unverified Adverse Reaction, Mild, N/V, 05/22/17) propoxyphene (Unverified Adverse Reaction, Mild, N/V, 05/22/17) *MDRO Multi-Drug Resistant Organism (Verified Adverse Reaction, Unknown, 05/22/17) 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 Social History No Tobacco. No ETOH. No Illicit Drugs. Physical Exam Vital Signs Vital Signs Date Time Temp Pulse Resp B/P (MAP) Pulse Ox O2 Delivery O2 Flow Rate FiO2 05/28/17 12:00 96.5 86 22 131/62 (85) 100 05/28/17 08:11 98 Nasal Cannula 3.00 05/28/17 08:00 98.7 85 20 127/60 (82) 99 05/28/17 00:00 99.4 86 20 128/68 (88) 100 05/27/17 22:30 98 Nasal Cannula 2.00 05/27/17 20:00 94.8 106 20 100/50 (67) 98 05/27/17 16:33 100 Nasal Cannula 3.00 05/27/17 16:00 95.7 86 19 137/65 (89) 100 Physical Exam CONSTITUTIONAL/GENERAL: This is an obese elderly patient, in no apparent distress. TUBES/LINES/DRAINS: SKIN: No jaundice, rashes, or lesions. Ecchymoses on upper extremities. No wounds seen anteriorly. Skin temperature appropriate. Not diaphoretic. HEAD: Atraumatic. Normocephalic. EYES: Pupils equal and round and reactive. Extraocular motions intact. No scleral icterus. No injection or drainage. Fundi not examined. ENT: Hearing grossly normal. Nose without bleeding or purulent drainage. Throat without visible erythema, exudates, masses, or lesions. NECK: Trachea midline. Supple, nontender. No palpable thyroid enlargement or nodularity. CARDIOVASCULAR: Regular rate and rhythm with 3/6 harsh holosystolic murmur on aortic valve no gallops, or rubs. No JVD. Peripheral pulses symmetric. RESPIRATORY/CHEST: Symmetric, unlabored respirations. Clear to auscultation. Breath sounds equal bilaterally. No wheezes, rales, or rhonchi. GASTROINTESTINAL: Abdomen soft, non-tender, nondistended. No hepato-splenomegaly , or palpable masses. No guarding. Bowel sounds present. GENITOURINARY: Without palpable bladder distension. MUSCULOSKELETAL: Extremities without clubbing, cyanosis, mild 2+ edema. No joint tenderness or effusion noted. No calf tenderness. No mottling or clubbing. LYMPHATICS: No palpable cervical or supraclavicular adenopathy. NEUROLOGICAL: Awake and alert. Motor and sensory grossly within normal limits. Follows commands. Clear speech. Moves all extremities. PSYCHIATRIC: No obvious anxiety/depression. no apparent hallucinations or other psychotic thought process. Laboratory Laboratory Tests Test 05/28/17 06:14 Random Vancomycin Level 21.8 Date/Time Source Procedure Growth Status 05/25/17 17:15 Blood Peripheral Aerobic Blood Culture - Preliminary NO GROWTH IN 3 DAYS Resulted 05/25/17 17:15 Blood Peripheral Anaerobic Blood Culture - Preliminary NO GROWTH IN 3 DAYS Resulted 05/23/17 10:30 Sputum Expectorated Sputum Gram Stain - Final Complete 05/23/17 10:30 Sputum Expectorated Sputum Sputum Culture - Final HEAVY GROWTH NORMAL RESPIRATORY MELINDA Complete 05/25/17 03:10 Urine Clean Catch Legionella Antigen - Final PRESUMPTIVE NEGATIVE FOR LEGIONELLA P... Complete 05/25/17 03:10 Urine Clean Catch Streptococcus pneumoniae Antigen (M - Final PRESUMPTIVE NEGATIVE FOR STREPTOCOCCU... Complete Result Diagram: 05/27/17 0630 05/27/17 0636 Imaging Last Impressions Chest X-Ray 05/26/17 0800 Signed Impressions: Service Date/Time: Friday, May 26, 2017 08:55 - CONCLUSION: 1. Bilateral effusions, cardiomegaly and interstitial prominence suggesting congestive failure. Jason Burrell MD Assessment and Plan Assessment and Plan Bacteremia, H.flu - source is probably PNA PNA RLL - new ? Aortic stenosis Preexisting COPD, COPD exacerbation change cefepime to CFTX dc vancomycin chk 2 D echo Discussed Condition With Evita Swift MD May 28, 2017 15:48
[2017-05-28] MEDS ORDERED: cefTRIAXone INJ 2,000 MG in SODIUM CHLORIDE 0.9% INJ 100 ML IV SCH (17:00)
--- NOTE | 2017-05-28 18:07 | HHI.PR ---
Subjective Remarks Patient reports feeling well today No specific complaints Objective Vitals Vital Signs Date Time Temp Pulse Resp B/P (MAP) Pulse Ox O2 Delivery O2 Flow Rate FiO2 05/28/17 16:00 96.8 79 21 141/57 (85) 100 05/28/17 12:00 96.5 86 22 131/62 (85) 100 05/28/17 08:11 98 Nasal Cannula 3.00 05/28/17 08:00 98.7 85 20 127/60 (82) 99 05/28/17 00:00 99.4 86 20 128/68 (88) 100 05/27/17 22:30 98 Nasal Cannula 2.00 05/27/17 20:00 94.8 106 20 100/50 (67) 98 Result Diagram: 05/27/1730 05/27/1736 Other Results Laboratory Tests Test 05/26/17 06:47 05/27/17 06:30 05/27/17 06:36 05/28/17 06:14 White Blood Count 9.9 TH/MM3 7.4 TH/MM3 Red Blood Count 2.94 MIL/MM3 2.93 MIL/MM3 Hemoglobin 9.0 GM/DL 8.9 GM/DL Hematocrit 26.6 % 26.5 % Mean Corpuscular Volume 90.5 FL 90.5 FL Mean Corpuscular Hemoglobin 30.8 PG 30.4 PG Mean Corpuscular Hemoglobin Concent 34.0 % 33.6 % Red Cell Distribution Width 14.6 % 14.5 % Platelet Count 123 TH/MM3 116 TH/MM3 Mean Platelet Volume 9.1 FL 9.5 FL Neutrophils (%) (Auto) 81.1 % 75.0 % Lymphocytes (%) (Auto) 8.5 % 10.0 % Monocytes (%) (Auto) 8.1 % 10.1 % Eosinophils (%) (Auto) 2.2 % 4.6 % Basophils (%) (Auto) 0.1 % 0.3 % Neutrophils # (Auto) 8.0 TH/MM3 5.6 TH/MM3 Lymphocytes # (Auto) 0.8 TH/MM3 0.7 TH/MM3 Monocytes # (Auto) 0.8 TH/MM3 0.8 TH/MM3 Eosinophils # (Auto) 0.2 TH/MM3 0.3 TH/MM3 Basophils # (Auto) 0.0 TH/MM3 0.0 TH/MM3 CBC Comment DIFF FINAL DIFF FINAL Differential Comment Blood Urea Nitrogen 76 MG/DL 68 MG/DL Creatinine 2.79 MG/DL 2.74 MG/DL Random Glucose 115 MG/DL 93 MG/DL Calcium Level 8.6 MG/DL 8.5 MG/DL Magnesium Level 1.6 MG/DL 1.5 MG/DL Sodium Level 137 MEQ/L 137 MEQ/L Potassium Level 4.3 MEQ/L 4.2 MEQ/L Chloride Level 103 MEQ/L 102 MEQ/L Carbon Dioxide Level 25.9 MEQ/L 27.3 MEQ/L Anion Gap 8 MEQ/L 8 MEQ/L Estimat Glomerular Filtration Rate 16 ML/MIN 16 ML/MIN Random Vancomycin Level 16.6 COMMENT 26.6 COMMENT 21.8 COMMENT Imaging Last Impressions Chest X-Ray 05/26/17 0800 Signed Impressions: Service Date/Time: Friday, May 26, 2017 08:55 - CONCLUSION: 1. Bilateral effusions, cardiomegaly and interstitial prominence suggesting congestive failure. Jason Burrell MD Last Impressions Chest X-Ray 05/22/17 1856 Signed Impressions: Service Date/Time: Monday, May 22, 2017 19:41 - CONCLUSION: 1. New patchy opacity the right lung base with concern for pneumonia. 2. Cardiomegaly with no evidence of pulmonary edema. Orlando Chavez MD Objective Remarks General: NAD, AAOx3 Chest: Improved aeration Cardiac: Regular Abd: +BS, soft ND/NT Ext: No significant edema A/P Problem List: (1) Pneumonia ICD Codes: J18.9 - Pneumonia, unspecified organism Status: Acute Plan: Pt is an 87 y/o female with atrial fibrillation s/p PPM in 02/2013, CHF, COPD/ restrictive lung disease who follows with Dr. Ricks, CKD stage [address] Carrillo, HTN, Hyperlipidemia, hypothyroidism, and diabetes. She was recently admitted to [facility] [place] from 05/10-05/14 for COPD exacerbation. Pt was discharged on Prednisone taper, Symbicort, Duonebs , and supplemental O2. She refused SNF placement at discharge and was felt to be high risk for readmission at that time. Pneumonia Leukocytosis COPD exacerbation - Pt presented back to the ED at [facility] [place] on 05/22/17 with complaints of fever ( Tmax 103), increased productive cough and SOB. - CXR in the ED noted new patchy opacity the right lung base with concern for pneumonia. Cardiomegaly with no evidence of pulmonary edema. - WBC 48.2 K on (05/23/17), WBC count down to 9K (05/26), unclear if d/t her pneumonia and/or steroids vs combination of the two - Pt was given Solu-Medrol 125 mg in ER, Duoneb treatment, Vancomycin and Cefepime in the ED - Cefepime 05/23 - present - Pt was was continued on Symbicort - Duoneb q4h while awake, and q2h prn - Cont. Mucinex - Blood cultures (05/22) --> Haemophilus Influenza - continue current antibiotics - Sputum culture (05/22) --> heavy growth of normal melinda - Repeat culture no growth x 3 days - consult ID, Dr. Baltazar has ordered a echocardiogram. Await results to determine abx - Per ID DC vancomycin, change cefepime to ceftriaxone - Pt currently on 3L of supplemental O2 via NC and overall feeling better. - CXR (05/26/17) --> Bilateral effusions, cardiomegaly and interstitial prominence suggesting congestive failure. - Resume pts Lasix 80mg po daily - Monitor labs - Supportive care - DVT prophylaxis with SCDs Atrial fibrillation - Pt with hx of atrial fibrillation s/p PPM in 02/2013 - Cont. ASA - Cont. telemetry CKD (chronic kidney disease) stage 4, GFR 15-29 ml/min - Baseline GFR 14 -16 - Creatine increased from baseline on admission - Cr 2.79 (05/25)2 - Monitor closely with reinitiating Lasix Diabetes - NovoLog SSI - Accu checks - Anticipate steroid hyperglycemia HTN (hypertension) - Her home meds were resumed, Losartan (may need to hold if renal function does not improve) - Clonidine and Vasotec PRN Hypothyroidism - Home meds resumed (2) Leukocytosis ICD Codes: D72.829 - Leukocytosis Status: Acute Plan: - See above (3) COPD (chronic obstructive pulmonary disease) ICD Codes: J44.9 - Chronic obstructive pulmonary disease, unspecified Status: Acute Plan: - See above (4) CKD (chronic kidney disease) stage 4, GFR 15-29 ml/min ICD Codes: N18.4 - Chronic kidney disease, stage IV (severe) Status: Chronic Plan: - See above Assessment and Plan Patient examined. Assessment and plan formulated with iLnda Britt PA-C. I agree with the above. Pt sitting up in chair doing a crossword puzzle. No fever. Appreciate input from ID, Dr. Baltazar. Echocardiogram ordered. If NO indication of endocarditis, then anticipate d/c to home 05/30/17 on PO antibiotics. Problem Qualifiers (1) Pneumonia: Qualified Codes: J18.1 - Lobar pneumonia, unspecified organism (2) Leukocytosis: Qualified Codes: D72.829 - Elevated white blood cell count, unspecified (3) COPD (chronic obstructive pulmonary disease): Qualified Codes: J44.9 - Chronic obstructive pulmonary disease, unspecified Linda Britt May 28, 2017 18:07 Sam Weir DO May 29, 2017 00:49
[2017-05-28] MEDS: hydrOXYzine HCL 25 MG TAB PO SCH (21:45)
[2017-05-29] VITALS: BP 147/56; PULSE 86; RESP 22; TEMP 98.2; O2SAT 100
[2017-05-29] MEDS: LEVOTHYROXINE SODIUM 100 MCG TAB PO SCH (05:51)
[2017-05-29] MEDS: INSULIN ASPART SUPPLEMENTAL SCALE SQ SCH ×2 (07:50→11:34)
[2017-05-29 08:00] VITALS: BP 115/56; PULSE 70; RESP 18; TEMP 98.3; O2SAT 99
[2017-05-29] MEDS: BUDESONIDE-FORMOTEROL 160/4.5 MCG INHALER INH SCH (08:42)
[2017-05-29] MEDS: DOCUSATE SODIUM 50 MG/SENNA 8.6 MG TAB PO SCH (08:42)
[2017-05-29] MEDS: guaiFENesin E.R. 600 MG TAB PO SCH (08:42)
[2017-05-29] MEDS: ASPIRIN 325 MG TAB PO SCH (08:43)
[2017-05-29] MEDS: FUROSEMIDE 80 MG TAB PO SCH (08:43)
[2017-05-29] MEDS: LOSARTAN 50 MG TAB PO SCH (08:43)
[2017-05-29] MEDS: SODIUM CHLORIDE 0.9% FLUSH 10 ML FLUSH IV FLUSH SCH (08:43)
[2017-05-29 12:00] VITALS: BP 126/59; PULSE 72; RESP 21; TEMP 97.5; O2SAT 100
[2017-05-29] MEDS ORDERED: OXYGENDME NAS.CANULA (13:37)
--- NOTE | 2017-05-29 13:41 | HHI.DS ---
Discharge Summary Admission Date May 22, 2017 at 21:31 Discharge Date: May 29, 2017 Admitting Diagnosis acute right sided pneumonia, HAP?, leukocytosis, COPD (1) Pneumonia Diagnosis: Principal ICD Codes: J18.9 - Pneumonia, unspecified organism Status: Acute (2) Leukocytosis Diagnosis: Principal ICD Codes: D72.829 - Leukocytosis Status: Acute (3) COPD (chronic obstructive pulmonary disease) Diagnosis: Principal ICD Codes: J44.9 - Chronic obstructive pulmonary disease, unspecified Status: Acute (4) CKD (chronic kidney disease) stage 4, GFR 15-29 ml/min Diagnosis: Secondary ICD Codes: N18.4 - Chronic kidney disease, stage IV (severe) Status: Chronic Consultants Dr. Baltazar, ID Procedures none Brief History 87 yo female presents to the ED for evaluation of cough and shortness of breath. Per patient she was just in hospital with copd exacerbation and was sent home on prednisone and oxygen. She was doing okay but she has not felt better and she actually has worsened for the past couple of days. She's also been throwing up because of the cough. She has any chest pain but feels very short of breath with exertion as well as with laying down. She has a significant history of COPD, CHF and chronic kidney disease. She was told would be better to go to rehab but refused. Patient states that the cough has not improved and she is having some fevers. She denies any sick contacts. No recent travel. Multiple allergies to different medications. Denies any chest pain but states feeling very short of breath with any movement. Does use oxygen at home. In er found to have chest xray consistent with pneumonia and significant leukocytosis . Started on IV antibiotics . CBC/BMP: 05/27/17 0630 05/27/17 0636 Significant Findings Laboratory Tests Test 05/27/17 06:30 05/27/17 06:36 05/28/17 06:14 Red Blood Count 2.93 MIL/MM3 (4.00-5.30) Hemoglobin 8.9 GM/DL (11.6-15.3) Hematocrit 26.5 % (35.0-46.0) Platelet Count 116 TH/MM3 (150-450) Neutrophils (%) (Auto) 75.0 % (16.0-70.0) Monocytes (%) (Auto) 10.1 % (0.0-8.0) Eosinophils (%) (Auto) 4.6 % (0.0-4.0) Lymphocytes # (Auto) 0.7 TH/MM3 (1.0-4.8) Blood Urea Nitrogen 68 MG/DL (7-18) Creatinine 2.74 MG/DL (0.50-1.00) Estimat Glomerular Filtration Rate 16 ML/MIN (>89) Imaging Last Impressions Chest X-Ray 05/26/17 0800 Signed Impressions: Service Date/Time: Friday, May 26, 2017 08:55 - CONCLUSION: 1. Bilateral effusions, cardiomegaly and interstitial prominence suggesting congestive failure. Jason Burrell MD PE at Discharge General: NAD, AAOx3 Chest: Improved aeration Cardiac: Regular Abd: +BS, soft ND/NT Ext: No significant edema Hospital Course Pt is an 87 y/o female with atrial fibrillation s/p PPM in 02/2013, CHF, COPD/ restrictive lung disease who follows with Dr. Ricks, CKD stage [address] Carrillo, HTN, Hyperlipidemia, hypothyroidism, and diabetes. She was recently admitted to [facility] [place] [place]10[place] for COPD exacerbation. Pt was discharged on Prednisone taper, Symbicort, Duonebs , and supplemental O2. She refused SNF placement at discharge and was felt to be high risk for readmission at that time. Pneumonia Leukocytosis COPD exacerbation - Pt presented back to the ED at [facility] [place] on 05/22/17 with complaints of fever ( Tmax 103), increased productive cough and SOB. - CXR in the ED noted new patchy opacity the right lung base with concern for pneumonia. Cardiomegaly with no evidence of pulmonary edema. - WBC 48.2 K on (05/23/17), WBC count down to 9K (/), unclear if d/t her pneumonia and/or steroids vs combination of the two - Pt was given Solu-Medrol 125 mg in ER, Duoneb treatment, Vancomycin and Cefepime in the ED - Cefepime 05/23 - present - Pt was was continued on Symbicort - Duoneb q4h while awake, and q2h prn - Cont. Mucinex - Blood cultures (05/22) --> Haemophilus Influenza - continue current antibiotics - Sputum culture (05/22) --> heavy growth of normal melinda - Repeat culture no growth x 3 days - consult ID, Dr. Baltazar - Per ID DC vancomycin, change cefepime to ceftriaxone 05/28/17 - Echocardiogram completed Dr. Lerner discussed results with Dr. Weir, no vegitation seen also Tricuspid valve not well visualized. - Case discussed with Dr. Baltazar 05/29. patient cleared for DC per ID recommends Augmentin 500mg BID PO for 3 days - Pt currently on 3L of supplemental O2 via NC and overall feeling better. - CXR (05/26/17) --> Bilateral effusions, cardiomegaly and interstitial prominence suggesting congestive failure. - Resume pts Lasix 80mg po daily - Monitor labs - Supportive care - DVT prophylaxis with SCDs Atrial fibrillation - Pt with hx of atrial fibrillation s/p PPM in 02/2013 - Cont. ASA - Cont. telemetry CKD (chronic kidney disease) stage 4, GFR 15-29 ml/min - Baseline GFR 14 -16 - Creatine increased from baseline on admission - Cr 2.79 (05/26), 2.74 (05/27) - recheck in 3 days after DC Diabetes - NovoLog SSI - Accu checks - likely steroid hyperglycemia. Blood glucose improved after DC Steroids HTN (hypertension) - Her home meds were resumed, Losartan (may need to hold if renal function does not improve) - Clonidine and Vasotec PRN Hypothyroidism - Home meds resumed Pt Condition on Discharge: Stable Discharge Disposition: Disch w/ Home Health Serv Discharge Instructions DIET: Follow Instructions for: As Tolerated, No Restrictions Activities you can perform: Regular-No Restrictions Follow up Referrals: PCP Follow-up - [address] Ko New Orders: BASIC METABOLIC PROF - 3-5 Days New Medications: Amoxicillin-Clavulanate (Augmentin) 500-125 mg Tab 500 MG PO BID for Infection, #6 TAB 0 Refills Wheelchair (Wheelchair) 1 Mis Mis EA .ROUTE DIRECTED, #1 0 Refills Continued Medications: Albuterol Neb (Albuterol Neb) 2.5 Mg/3 Ml Neb 2.5 MG NEB Q4HR NEB PRN for SHORTNESS OF BREATH, #60 NEBULE 0 Refills Aspirin (Aspirin) 325 Mg Tab 325 MG PO DAILY, #30 TAB 0 Refills Budesonide-Formoterol Inh (Symbicort Inh) 160-4.5 Mcg/Act Aero 1 PUFF INH Q12HR, #1 INHALER 0 Refills Furosemide (Lasix) 80 Mg Tab 80 MG PO DAILY, #30 TAB 0 Refills Hydroxyzine HCl (Hydroxyzine HCl) 25 Mg Tab 25 MG PO HS, TAB 0 Refills Insulin Aspart Inj (Novolog Inj) 1,000 Unit/10 Ml Vial 3-5 UNITS SQ DAILY for Blood Sugar Management, #10 ML 0 Refills Max dose at bedtime:( )units; sugars less than 70,(0)units; sugars 150-199,(1) unit; sugars 200-249,(3) units; sugars 250-299,(5) units; sugars 300-349,(7) units; sugars greater than 349,(9) units Ipratropium Neb (Ipratropium Neb) 0.5 Mg/2.5 Ml Amp 0.5 MG NEB Q4HR NEB PRN for SHORTNESS OF BREATH, #180 NEBULE 0 Refills Levothyroxine (Levothyroxine) 100 Mcg Tab 100 MCG PO DAILY for Thyroid, #30 TAB 0 Refills Losartan (Losartan) 100 Mg Tab 100 MG PO DAILY for Blood Pressure Management, #30 TAB 0 Refills Sodium Bicarbonate (Sodium Bicarbonate) 650 Mg Tab 650 MG PO TIDPC, #90 TAB 0 Refills Discontinued Medications: Prednisone (Prednisone) 10 Mg Tab 10 MG PO DIRECTED for steroid taper, #65 TAB 0 Refills take 30 mg twice a day by mouth for five days, then take 20 mg twice a day by mouth for five days, then take 10 mg twice a day by mouth for five days, then take 10 mg once a day by mouth for fuve days, then stop Additional Information Patient examined. Assessment and plan formulated with Linda Britt PA-C. I agree with the above. Linda Britt May 29, 2017 13:41 Sam Weir DO Jun 04, 2017 00:25
[2017-05-29] MEDS ORDERED: AUGM875T3 PO (14:24)
[2017-05-29] MEDS ORDERED: WHEEMIS3 (14:29)
--- NOTE | 2017-05-29 14:31 | HHI.FF ---
Face to Face Verification Diagnosis: (1) COPD (chronic obstructive pulmonary disease) (2) Pneumonia (3) Acute renal failure superimposed on stage 4 chronic kidney disease Physical Therapy Order: Evaluate and Treat, Improve ambulation, Strength and gait training Home Health Nursing Order: Medical education Oxygen administration education Medication education-adverse effect Nursing assessment with vital signs I have seen patient Mayela Crenshaw on 05/29/17. My clinical findings support the need for the requested home health care services because: Deconditioned w/ increased weakness Limited ability to care for self I certify that my clinical findings support that this patient is homebound because: Hx COPD- exertion dyspnea/weakness Unsteady gait/balance Linda Britt May 29, 2017 14:31 Sam Weir DO Jun 04, 2017 00:24
[2017-05-29] MEDS ORDERED: AUGM500T7 PO (15:14)
[2017-05-29 16:00] VITALS: BP 146/64; PULSE 84; RESP 20; TEMP 95.1; O2SAT 100
--- NOTE | 2017-05-29 16:16 | ECHRPT ---
Indication: vegetations CONCLUSIONS Normal left ventricular size. The left ventricular systolic function is normal with an estimated ejection fraction in the range of 55-60%. Trace mitral valve regurgitation. Mitral annular calcification is present. Aortic valve sclerosis is present. Aortic valve mean gradient is 20 mmHg. Aortic valve area is 1.2 cm. There is mild tricuspid valve regurgitation. The estimated pulmonary arterial pressure is 60.7 mmHg. BP: / HR: Rhythm: MEASUREMENTS (Male / Female) Normal Values Technical Quality:Fair 2D ECHO LV Diastolic Diameter PLAX 5.3 cm 4.2 - 5.9 / 3.9 - 5.3 cm LV Systolic Diameter PLAX 4.0 cm IVS Diastolic Thickness 1.1 cm 0.6 - 1.0 / 0.6 - 0.9 cm LVPW Diastolic Thickness 1.2 cm 0.6 - 1.0 / 0.6 - 0.9 cm LV Relative Wall Thickness 0.4 RV Internal Dim ED PLAX 2.9 cm LVOT Diameter 2.4 cm M-MODE Aortic Root Diameter MM 3.6 cm LA Systolic Diameter MM 4.7 cm LA Ao Ratio MM 1.3 DOPPLER AV Peak Velocity 294.0 cm/s AV Peak Gradient 34.6 mmHg AV Mean Gradient 20.0 mmHg AV Velocity Time Integral 72.9 cm LVOT Peak Velocity 88.7 cm/s LVOT Peak Gradient 3.1 mmHg LVOT Velocity Time Integral 19.3 cm AV Area Cont Eq vti 1.2 cm AV Area Cont Eq pk 1.4 cm TR Peak Velocity 356.0 cm/s TR Peak Gradient 50.7 mmHg Right Atrial Pressure 10.0 mmHg Pulmonary Artery Systolic Pressu 60.7 mmHg Right Ventricular Systolic Press 60.7 mmHg FINDINGS LEFT VENTRICLE Normal left ventricular size. The left ventricular systolic function is normal with an estimated ejection fraction in the range of 55-60%. RIGHT VENTRICLE Normal right ventricular size and systolic function. LEFT ATRIUM The left atrial size is normal. RIGHT ATRIUM The right atrial size is normal. ATRIAL SEPTUM Normal atrial septal thickness without atrial level shunting by limited color doppler interrogation. AORTA The aortic root and proximal ascending aorta are normal in size on limited imaging. MITRAL VALVE Structurally normal mitral valve. Trace mitral valve regurgitation. Mitral annular calcification is present. AORTIC VALVE Aortic valve sclerosis is present. Aortic valve mean gradient is 20 mmHg. Aortic valve area is 1.2 cm. TRICUSPID VALVE Structurally normal tricuspid valve. There is mild tricuspid valve regurgitation. The estimated pulmonary arterial pressure is 60.7 mmHg. PULMONARY VALVE No pulmonary valve regurgitation or stenosis. VESSELS The inferior vena cava is normal in size. PERICARDIUM No pericardial effusion. Andrew Joseph MD (Electronically Signed) Final Date:29 May 2017 16:14
--- NOTE | 2017-05-29 16:46 | HHI.IDPN ---
Subjective Subjective Remarks feels better no vegetaions on aorticvalve, + stenosis Repeat blood clx remain negaive @ 4 days no fever wants to go home GFR still 16 Antibiotics CFTX Allergies: Coded Allergies: grass pollen (Unverified Allergy, Severe, CONGESTION, 05/22/17) animal dander (Unverified Allergy, Intermediate, NASAL, 05/22/17) NASAL CONGESTION grapefruit (Unverified Allergy, Unknown, due to drug interaction, 05/22/17 ) metformin (Unverified Adverse Reaction, Severe, Diarrhea, 05/22/17) acetaminophen (Unverified Adverse Reaction, Mild, N/V, 05/22/17) hydrocodone (Unverified Adverse Reaction, Mild, N/V, 05/22/17) propoxyphene (Unverified Adverse Reaction, Mild, N/V, 05/22/17) *MDRO Multi-Drug Resistant Organism (Verified Adverse Reaction, Unknown, 05/22/17) 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 Vital Signs Date Time Temp Pulse Resp B/P (MAP) Pulse Ox O2 Delivery O2 Flow Rate FiO2 05/29/17 12:00 97.5 72 21 126/59 (81) 100 05/29/17 11:28 Nasal Cannula 2.00 05/29/17 08:00 98.3 70 18 115/56 (75) 99 05/29/17 00:00 98.2 86 22 147/56 (86) 100 05/28/17 22:15 100 Nasal Cannula 2.00 05/28/17 21:51 Nasal Cannula 2.00 05/28/17 20:00 96.8 122 20 129/58 (81) 100 Imaging Last Impressions Chest X-Ray 05/26/17 0800 Signed Impressions: Service Date/Time: Friday, May 26, 2017 08:55 - CONCLUSION: 1. Bilateral effusions, cardiomegaly and interstitial prominence suggesting congestive failure. Jason Burrell MD Physical Exam CONSTITUTIONAL/GENERAL: This is an obese elderly patient, in no apparent distress. TUBES/LINES/DRAINS: SKIN: No jaundice, rashes, or lesions. CARDIOVASCULAR: Regular rate and rhythm with 3/6 harsh holosystolic murmur on aortic valve no gallops, or rubs. No JVD. Peripheral pulses symmetric. RESPIRATORY/CHEST: Symmetric, unlabored respirations. Clear to auscultation. GASTROINTESTINAL: Abdomen soft, non-tender, nondistended. MUSCULOSKELETAL: Extremities without clubbing, cyanosis, mild 2+ edema. No joint tenderness or effusion noted. No calf tenderness. No mottling or clubbing. NEUROLOGICAL: Awake and alert. Motor and sensory grossly within normal limits. Follows commands. Clear speech. Moves all extremities. PSYCHIATRIC: No obvious anxiety/depression. no apparent hallucinations or other psychotic thought process. Assessment & Plan Remarks Bacteremia, H.flu - source is probably PNA PNA RLL - new: clinically resolving ? Aortic stenosis 2 D echo showed no veg's Preexisting COPD, COPD exacerbation ARF on CKD: improving change CFTX to augmentin 500 bid (renmnally adjusted ) and cont for 3 more days OK to dc pt home Discussed Condition With Evita Swift MD May 29, 2017 16:46
== END 2017-05-29 17:03 | disposition home health service (06) | DRG 190 ==
LOC: NEPE 18:28 → NEDA 21:31 → N07B 23:03
PROVIDERS: ADMIT Hospitalist; ATTEND Hospitalist
DX: J44.1 Chronic obstructive pulmonary disease with (acute) exacerbation (principal); J14 Pneumonia due to Hemophilus influenzae; N18.4 Chronic kidney disease, stage 4 (severe); I13.0 Hypertensive heart and chronic kidney disease with heart failure and stage 1 through stage 4 chronic kidney disease, or unspecified chronic kidney disease; E11.22 Type 2 diabetes mellitus with diabetic chronic kidney disease; N17.9 Acute kidney failure, unspecified; R78.81 Bacteremia; I48.91 Unspecified atrial fibrillation; I50.9 Heart failure, unspecified; E11.65 Type 2 diabetes mellitus with hyperglycemia; J44.0 Chronic obstructive pulmonary disease with (acute) lower respiratory infection; E03.9 Hypothyroidism, unspecified; E78.5 Hyperlipidemia, unspecified; I35.0 Nonrheumatic aortic (valve) stenosis; T38.0X5A Adverse effect of glucocorticoids and synthetic analogues, initial encounter; M19.90 Unspecified osteoarthritis, unspecified site; H91.90 Unspecified hearing loss, unspecified ear; Z79.4 Long term (current) use of insulin; Z85.038 Personal history of other malignant neoplasm of large intestine; Z86.14 Personal history of Methicillin resistant Staphylococcus aureus infection; Z88.5 Allergy status to narcotic agent; Z88.6 Allergy status to analgesic agent; Z95.0 Presence of cardiac pacemaker; Z99.81 Dependence on supplemental oxygen
CPT/HCPCS: 71010; 71046; 76937; 80048; 80053; 80202; 82550; 82947; 82948; 83605; 83690; 83735; 83880; 84484; 85007; 85025; 85027; 85610; 85730; 87040; 87070; 87077; 87184; 87185; 87205; 87449; 87804; 93005; 93308; 94150; 94640; 94664; 96365; 96375; J0692; J0696; J1815; J2405; J2930; J3370; J7040; J7050

== ENCOUNTER 2017-08-08 12:04 | Emergency (ER) | payer MEDICARE ==
[~2017-08-08] VITALS: Ht 172.7 cm; Wt 100.5 kg
[~2017-08-08 12:04] MED LIST changes: +AUGM500T7 PO; -NEBULIZER1 MI1; -OXYGENTANK NAS.CANULA; -PRED10 PO; +WHEEMIS3
[2017-08-08 12:07] VITALS: BP 132/82; PULSE 67; RESP 21; TEMP 97.6; O2SAT 97
[2017-08-08] MEDS ORDERED: SODIUM CHLORIDE 0.9% FLUSH 10 ML FLUSH IV FLUSH PRN (13:15)
[2017-08-08 14:01] LABS: AUTOMATED NEUTROPHIL # 4.8 TH/MM3 (1.8-7.7); BASOPHIL % 0.3 % (0.0-2.0); EOSINOPHIL # 0.4 TH/MM3 (0-0.4); EOSINOPHIL % 5.7 % (0.0-4.0); HEMATOCRIT 28.2 % (35.0-46.0); HEMOGLOBIN 9.3 GM/DL (11.6-15.3); LYMPHOCYTE # 1.6 TH/MM3 (1.0-4.8); MEAN CELL VOLUME 90.5 FL (80.0-100.0); MEAN CORPUSCULAR HEMOGLOBIN 29.9 PG (27.0-34.0); MEAN CORPUSCULAR HGB CONC 33.1 % (32.0-36.0); MEAN PLATELET VOLUME 8.3 FL (7.0-11.0); MONOCYTE # 0.8 TH/MM3 (0-0.9); PLATELET COUNT 170 TH/MM3 (150-450); RED BLOOD COUNT 3.12 MIL/MM3 (4.00-5.30); RED CELL DISTRIBUTION WIDTH 18.4 % (11.6-17.2); WHITE BLOOD COUNT 7.6 TH/MM3 (4.0-11.0)
[2017-08-08 14:14] LABS: BACTERIA, URINE RARE /hpf; BILIRUBIN, URINE NEG (NEG); BLOOD, URINE NEG (NEG); GLUCOSE,URINE NEG (NEG); KETONE, URINE NEG (NEG); MUCUS URINE FEW /lpf (OCC); NITRITE,URINE NEG (NEG); SQUAMOUS EPITHELIAL CELL URINE <1 /hpf (0-5); URINE COLOR LIGHT-YELLOW (YELLW/STRAW); URINE LEUKOCYTE ESTERASE NEG (NEG)
[2017-08-08 14:15] LABS: ALBUMIN 3.4 GM/DL (3.4-5.0); ALT (GPT) 19 U/L (10-53); AST (GOT) 15 U/L (15-37); BICARBONATE 22.7 MEQ/L (21.0-32.0); BLOOD UREA NITROGEN 42 MG/DL (7-18); CHLORIDE 105 MEQ/L (98-107); CREATININE 2.77 MG/DL (0.50-1.00); GLOMERULAR FILTRATION RATE 16 ML/MIN (>89); GLUCOSE,RANDOM 132 MG/DL (74-106); SODIUM (NA) 137 MEQ/L (136-145)
[2017-08-08] MEDS: MORPHINE SULFATE 4 MG/ML INJ IV PUSH ONE (14:15)
[2017-08-08] MEDS: ONDANSETRON HCL 4 MG/2 ML VIAL IV PUSH ONE (14:16)
[2017-08-08 14:18] LABS: ALKALINE PHOSPHATASE 171 U/L (45-117); TOTAL BILIRUBIN ADULT 0.6 MG/DL (0.2-1.0); TOTAL PROTEIN 7.4 GM/DL (6.4-8.2)
--- NOTE | 2017-08-08 14:46 | PD ---
HPI . Abdominal pain Chief Complaint: Abdominal Pain Time Seen by Provider: 13:01 Travel History International Travel<30 days: No Contact w/Intl Traveler<30days: No Traveled to known affect area: No History of Present Illness HPI This patient presents with the chief complaint of abdominal pain. Onset was last night after eating supper. Pain is located in the right upper quadrant. She states that she had a Kielbasa sausage and some vegetables. Pain is rated 7 /10 and is exacerbated by movement of her right arm. She has no associated symptoms such as anorexia, nausea, vomiting, diarrhea, dysuria, frequency, urgency. PFSH Past Medical History Anemia: Yes Arthritis: Yes Atrial Fibrillation: Yes Blood Disorders: No Cancer: No Cardiovascular Problems: Yes Congestive Heart Failure: Yes COPD: Yes Diabetes: Yes Patient Takes Glucophage: No Diminished Hearing: Yes (QAGAN TAYAGUNGIN) Endocrine: Yes Genitourinary: Yes Hepatitis: No Hiatal Hernia: No Hypertension: Yes Immune Disorder: No Implanted Vascular Access Dvce: No Medical other: Yes (ANEMIA,ARTHRITIS,HYPERLIPIDEMIA,) Musculoskeletal: No Neurologic: No Psychiatric: No Reproductive: No Respiratory: Yes Immunizations Current: Yes Seizures: No Thyroid Disease: Yes : 12 Para: 11 Miscarriage: 1 Past Surgical History Abdominal Surgery: Yes (sigmoid ectomy) AICD: No Arteriovenous Shunt: Yes (RIGHT ARM) Body Medical Devices: PACEMAKER Cardiac Surgery: Yes (pacemaker) Ear Surgery: No Endocrine Surgery: No Eye Surgery: Yes (BILAT eye cataract removal) Genitourinary Surgery: No Gynecologic Surgery: Yes (hysterectomy) Hysterectomy: Yes Joint Replacement: No Neurologic Surgery: No Oral Surgery: Yes ( ) Pacemaker: Yes Thoracic Surgery: No Tonsillectomy: Yes Other Surgery: Yes ( ) Social History Alcohol Use: No Tobacco Use: No Substance Use: No Allergies-Medications (Allergen,Severity, Reaction): Coded Allergies: grass pollen (Unverified Allergy, Severe, CONGESTION, 08/08/17) animal dander (Unverified Allergy, Intermediate, NASAL, 08/08/17) NASAL CONGESTION grapefruit (Unverified Allergy, Unknown, due to drug interaction, 08/08/17) metformin (Unverified Adverse Reaction, Severe, Diarrhea, 08/08/17) acetaminophen (Unverified Adverse Reaction, Mild, N/V, 08/08/17) hydrocodone (Unverified Adverse Reaction, Mild, N/V, 08/08/17) propoxyphene (Unverified Adverse Reaction, Mild, N/V, 08/08/17) *MDRO Multi-Drug Resistant Organism (Verified Adverse Reaction, Unknown, ) 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 Uncoded Allergies: ALL NARCOTICS (Adverse Reaction, Severe, Nausea/Vomiting, 08/24/06) Reported Meds & Prescriptions Reported Meds & Active Scripts Active Augmentin (Amoxicillin-Clavulanate) 500-125 mg Tab 500 Mg PO BID Wheelchair (Device) 1 Mis Mis Ea .ROUTE DIRECTED Symbicort Inh (Budesonide/Formoterol Fumarate) 160-4.5 Mcg/Act Aero 1 Puff INH Q12HR Albuterol Neb (Albuterol Sulfate) 2.5 Mg/3 Ml Neb 2.5 Mg NEB Q4HR NEB PRN Ipratropium Neb (Ipratropium [place]) 0.5 Mg/2.5 Ml Amp 0.5 Mg NEB Q4HR NEB PRN Reported Oxygen (O2) Device Liter JAMES.CANULA CONTINUOUS Oxygen Concentrator Portable Gaseous 2 L/min via Nasal Canula Continuous For 99 months Levothyroxine (Levothyroxine Sodium) 100 Mcg Tab 100 Mcg PO DAILY Lasix (Furosemide) 80 Mg Tab 80 Mg PO DAILY Aspirin 325 Mg Tab 325 Mg PO DAILY Sodium Bicarbonate 650 Mg Tab 650 Mg PO TIDPC Hydroxyzine HCl 25 Mg Tab 25 Mg PO HS Losartan (Losartan Potassium) 100 Mg Tab 100 Mg PO DAILY Novolog Inj (Insulin Aspart) 1,000 Unit/10 Ml Vial 3-5 Units SQ DAILY Max dose at bedtime:( )units; sugars less than 70,(0)units; sugars 150-199,(1) unit; sugars 200-249,(3) units; sugars 250-299,(5) units; sugars 300-349,(7) units; sugars greater than 349,(9) units Review of Systems Except as stated in HPI: all other systems reviewed are Neg General / Constitutional: No: Fever, Chills Gastrointestinal: Positive: Abdominal Pain, No: Nausea, Vomiting, Diarrhea, Loss of Appetite Genitourinary: No: Urgency, Frequency, Dysuria Physical Exam Narrative GENERAL: Awake and alert and in no acute distress. SKIN: warm/dry. Normal color and turgor. HEAD: Normocephalic. Atraumatic. EYES: Pupils equal and round. No scleral icterus. No injection or drainage. ENT: No nasal bleeding or discharge. Mucous membranes pink and moist. NECK: Trachea midline. Full range of motion without pain.. CARDIOVASCULAR: Regular rate and rhythm. Heart sounds are normal. RESPIRATORY: No accessory muscle use. Clear to auscultation. Breath sounds equal bilaterally. GASTROINTESTINAL: Abdomen soft. Nontender. Bowel sounds present. Nondistended. MUSCULOSKELETAL: No obvious deformities. NEUROLOGICAL: Awake and alert. No obvious cranial nerve deficits. Motor grossly within normal limits. Normal speech. PSYCHIATRIC: Appropriate mood and affect; insight and judgment normal. Data Data Last Documented VS Vital Signs Date Time Temp Pulse Resp B/P (MAP) Pulse Ox O2 Delivery O2 Flow Rate FiO2 08/08/17 13:08 18 08/08/17 12:07 97.6 67 132/82 (99) 97 Orders Orders Complete Blood Count With Diff (08/08/17 13:01) Comprehensive Metabolic Panel (08/08/17 13:01) Lipase (08/08/17 13:01) Urinalysis - C+S If Indicated (08/08/17 13:01) Iv Access Insert/Monitor (08/08/17 13:01) Sodium Chloride 0.9% Flush (Ns Flush) (08/08/17 13:15) Morphine Inj (Morphine Inj) (08/08/17 13:45) Ondansetron Inj (Zofran Inj) (08/08/17 13:45) Ct Abd/Pel W/O Iv Contrast (08/08/17 14:33) Labs Laboratory Tests Test 08/08/17 13:34 08/08/17 13:52 White Blood Count 7.6 TH/MM3 Red Blood Count 3.12 MIL/MM3 Hemoglobin 9.3 GM/DL Hematocrit 28.2 % Mean Corpuscular Volume 90.5 FL Mean Corpuscular Hemoglobin 29.9 PG Mean Corpuscular Hemoglobin Concent 33.1 % Red Cell Distribution Width 18.4 % Platelet Count 170 TH/MM3 Mean Platelet Volume 8.3 FL Neutrophils (%) (Auto) 63.0 % Lymphocytes (%) (Auto) 21.0 % Monocytes (%) (Auto) 10.0 % Eosinophils (%) (Auto) 5.7 % Basophils (%) (Auto) 0.3 % Neutrophils # (Auto) 4.8 TH/MM3 Lymphocytes # (Auto) 1.6 TH/MM3 Monocytes # (Auto) 0.8 TH/MM3 Eosinophils # (Auto) 0.4 TH/MM3 Basophils # (Auto) 0.0 TH/MM3 CBC Comment DIFF FINAL Differential Comment Blood Urea Nitrogen 42 MG/DL Creatinine 2.77 MG/DL Random Glucose 132 MG/DL Total Protein 7.4 GM/DL Albumin 3.4 GM/DL Calcium Level 9.0 MG/DL Alkaline Phosphatase 171 U/L Aspartate Amino Transf (AST/SGOT) 15 U/L Alanine Aminotransferase (ALT/SGPT) 19 U/L Total Bilirubin 0.6 MG/DL Sodium Level 137 MEQ/L Potassium Level 4.7 MEQ/L Chloride Level 105 MEQ/L Carbon Dioxide Level 22.7 MEQ/L Anion Gap 9 MEQ/L Estimat Glomerular Filtration Rate 16 ML/MIN Lipase 112 U/L Urine Color LIGHT-YELLOW Urine Turbidity CLEAR Urine pH 7.0 Urine Specific [place] 1.007 Urine Protein NEG mg/dL Urine Glucose (UA) NEG mg/dL Urine Ketones NEG mg/dL Urine Occult Blood NEG Urine Nitrite NEG Urine Bilirubin NEG Urine Urobilinogen LESS THAN 2.0 MG/DL Urine Leukocyte Esterase NEG Urine RBC LESS THAN 1 /hpf Urine WBC LESS THAN 1 /hpf Urine Squamous Epithelial Cells <1 /hpf Urine Bacteria RARE /hpf Urine Mucus FEW /lpf Microscopic Urinalysis Comment CULT NOT INDICATED MDM Medical Decision Making Medical Screen Exam Complete: Yes Emergency Medical Condition: Yes Medical Record Reviewed: Yes (see narrative for pertinent findings on review of records) Differential Diagnosis Differential diagnosis of abdominal pain includes but is not limited to gastritis, pancreatitis, hepatitis, gastroenteritis, gallbladder disease, constipation, urinary retention, UTI, peptic ulcer disease, diverticulitis or appendicitis Narrative Course This patient presents with right upper quadrant abdominal pain. She has a benign abdominal examination. She has no associated symptoms such as anorexia, exacerbation of pain with food, vomiting, etc. She also has no urinary tract symptoms. CBC & BMP Diagram 08/08/17 13:34 Total Protein 7.4, Albumin 3.4, Calcium Level 9.0, Alkaline Phosphatase 171 H, Aspartate Amino Transf (AST/SGOT) 15, Alanine Aminotransferase (ALT/SGPT) 19, Total Bilirubin 0.6 UA is negative. Records were reviewed. The anemia and renal failure are chronic and stable. Last Impressions Abdomen/Pelvis CT 08/08/17 1433 Signed Impressions: Service Date/Time: Tuesday, August 08, 2017 15:13 - CONCLUSION: 1. There are multiple gallstones in the gallbladder. 2. Large ventral hernia. 3. Small bilateral effusions with atelectatic changes in the lower lobes. 4. Cardiomegaly. 5. Atherosclerotic plaquing in the abdominal aorta. 6. Degenerative changes in the spine. Jason Burrell MD The etiology of this patient's abdominal pain is probably her gallbladder. However, she does not have cholecystitis. She is stable for discharge to home and outpatient evaluation by a surgeon. Diagnosis Primary Impression: Abdominal pain Qualified Codes: R10.11 - Right upper quadrant pain Additional Impression: Cholelithiasis Qualified Codes: K80.20 - Calculus of gallbladder without cholecystitis without obstruction Referrals: Toño Trotter MD 3 days Patient Instructions: Gallstones (DC), General Instructions, Narcotic given in the ED Additional Instructions: Avoid fatty foods and raw vegetables. Disposition: 01 DISCHARGE HOME Condition: Stable Criss Josue MD Aug 08, 2017 14:46
--- NOTE | 2017-08-08 15:39 | RADRPT ---
EXAM DATE/TIME: 08/08/2017 15:13 [place] COMPARISON: CT BRAIN W/O CONTRAST, August 27, 2015, 8:55. INDICATIONS : Right upper quadrant pain for 2 days ORAL CONTRAST: No oral contrast ingested. RADIATION DOSE: 16.25 CTDIvol (mGy) MEDICAL HISTORY : Cardiovascular disease. Hypertension. Renal failure, chronic. SURGICAL HISTORY : Hysterectomy. Sigmoidectomy ENCOUNTER: Initial ACUITY: 2 days PAIN SCALE: 6/10 LOCATION: Right upper quadrant TECHNIQUE: Volumetric scanning of the abdomen and pelvis was performed. Using automated exposure control and ad justment of the mA and/or kV according to patient size, radiation dose was kept as low as reasonably achievable to obtain optimal diagnostic quality images. DICOM format image data is available electro nically for review and comparison. FINDINGS: The limited portion of the lung base visualized demonstrate COPD changes with small bilateral effusio ns. Note is made of a 9 mm granulomatous calcification within the left lower lobe. The heart is enlar ged. The appearance of the liver, spleen, pancreas and adrenal glands is within normal limits. The kidneys appear somewhat atrophic with simple cysts bilaterally. There is a 2.2 cm calcified gallstone within the dependent portion of the gallbladder. There are 2 ot her punctate stones seen as well. There is no free intraperitoneal air. No free intraperitoneal fluid is identified. The loops of small and large bowel in the upper abdomen are unremarkable. There is a large ventral hernia. There are several loops of bowel herniated into the defect. There is no evidence of obstruction. There is no free fluid within the pelvis. No iliac or inguinal adenopathy is seen. There are advanced degenerative changes throughout the lumbar spine. CONCLUSION: 1. There are multiple gallstones in the gallbladder. 2. Large ventral hernia. 3. Small bilateral effusions with atelectatic changes in the lower lobes. 4. Cardiomegaly. 5. Atherosclerotic plaquing in the abdominal aorta. 6. Degenerative changes in the spine. Jason Burrell MD on August 08, 2017 at 15:34 Board Certified Radiologist. This report was verified electronically.
== END 2017-08-08 16:10 | disposition home or self-care (01) ==
LOC: NEPD 12:04
DX: K80.20 Calculus of gallbladder without cholecystitis without obstruction (principal); K43.9 Ventral hernia without obstruction or gangrene; I51.7 Cardiomegaly; D64.9 Anemia, unspecified; M19.90 Unspecified osteoarthritis, unspecified site; I48.91 Unspecified atrial fibrillation; I11.0 Hypertensive heart disease with heart failure; I50.9 Heart failure, unspecified; E11.9 Type 2 diabetes mellitus without complications
CPT/HCPCS: 74176; 80053; 81001; 83690; 85025; 96374; 96375; 99284; J2270; J2405